=== PATIENT | male | born 1945 | race Caucasian/White ===

== ENCOUNTER 2021-03-30 11:00 | Outpatient (RCR) | payer MEDICARE, OTHER, SELFPAY ==
[2021-03-30] VITALS (7 sets, daily range): BP systolic 125–136; BP diastolic 43–67; PULSE 72–79; RESP 16–18; TEMP 36.5–36.6; O2SAT 97–100
[2021-03-30 11:50] LABS: Hematocrit 20.3 % (42.0-52.0)
[2021-03-30] MEDS: SODIUM CHLORIDE 0.9% IV 250 ML 30 ML IV CONT (15:00)
--- NOTE | 2021-03-30 21:58 | PC.NURSE ---
2150 pt discharged home via own vehicle, driven himself. pt vital signs stable, on room air, no cp, sob. pt given discharge instructions.
== END 2021-06-28 23:59 | disposition home or self-care (01) ==
LOC: ANHCPCTRAN 11:00
PROVIDERS: PCP Family Medicine Adolescent Medicine; Visit Provider Physician Assistant
DX: D64.9 Anemia, unspecified (principal)
CPT/HCPCS: 36415; 36430; 85014; 85018; 86850; 86900; 86901; 86920; J7050; P9016

== ENCOUNTER → 2021-04-20 15:10 | Outpatient (CLI) | payer MEDICARE, OTHER, SELFPAY ==
--- NOTE | ~2021-04-20 | US_ITS ---
EXAMINATION: US renal BI DATE: 04/20/2021 15:25 INDICATION: Chronic kidney disease stage IV. TECHNIQUE: Multiple ultrasound grayscale images of the kidneys were obtained. COMPARISON: None. FINDINGS: The right kidney measures 9.0 x 5.1 x 5.3 cm. The left kidney measures 9.8 x 5.2 x 4.5 cm. The kidney s demonstrate normal parenchymal echogenicity. There is no hydronephrosis. The bladder is normal. IMPRESSION: 1. Normal kidneys. No hydronephrosis. Reviewed, dictated and finalized at location A.
== END ==
PROVIDERS: Visit Provider Internal Medicine Nephrology
DX: N18.4 Chronic kidney disease, stage 4 (severe) (principal)
CPT/HCPCS: 76775

== ENCOUNTER 2021-06-13 00:23 | Day surgery (SDC) | payer MEDICARE, OTHER, SELFPAY ==
[2021-06-06 11:58] VITALS: BMI 24.9
--- NOTE | 2021-06-13 08:03 | WPDANESEPPF ---
Anes - Initial Pre Proc Eval Procedure: Operation Date: 06/13/21 09:45 Proposed Procedures p Esophagogastroduodenoscopy & Colonoscopy - Robert Cyr MD Date/Time: 06/13/21 08:03 Surgeon: Robert Cyr MD Pre Op Diagnosis: gi blood loss, anemia Patient Data Age: 76 Gender: M Height: 1.8 m Weight: 81 kg Allergies Allergy/AdvReac Type Severity Reaction Status Date / Time No Known Allergies Allergy Verified 06/13/21 08:23 Home Medications Medication Instructions Recorded Confirmed Type aspirin 81 mg tablet,delayed 81 mg PO DAILY 05/10/21 06/13/21 History release clopidogrel 75 mg tablet 75 mg PO DAILY 05/10/21 06/13/21 History fenofibrate 160 mg tablet 160 mg PO DAILY 05/10/21 06/13/21 History losartan 100 mg tablet 100 mg PO DAILY 05/10/21 06/13/21 History omega 2-woi-cme-fish oil 1,200 mg 1 cap PO DAILY 05/10/21 06/13/21 History (144 mg-216 mg) capsule Patient hx anesthesia problems: none Family hx anesthesia problems: none Results Review: All pre-operative results and documents have been reviewed as part of the pre-operative evaluation. [facility] Past Medical History Medical History (Updated 06/13/21 @ 08:56 by Robert Cyr MD) Arthritis Hyperlipidemia Hypertension PVD (peripheral vascular disease) Stroke TIA (transient ischemic attack) Surgical History Surgical History (Updated 06/13/21 @ 08:04 by Weston Rodírguez DO) History of carotid endarterectomy Social History Social History (Updated 05/10/21 @ 08:24 by Suzanna Vivas CMA) Smoking packs per day: 3 Smoking cigarettes per day: 60.0 Years smoked: 25 Smoking pack-years: 75.00 Smoking status: Current every day smoker Tobacco type: cigarettes Alcohol intake: former Substance use: never Substance use type: does not use Living arrangements: with family Spiritual care concerns: No Anes - Eval Final PreProcedure Day of Procedure 06/13/21 08:03 Patient weight: normal Heart: regular rate and rhythm Lungs: clear to auscultation and normal air movement Airway: Mallampati scale class II Neurological: alert and oriented Last oral intake: >/= 8 hours ASA classification: III Emergent: no Anesthetic plan: proceed Anesthesia type and monitoring: general GIVS and standard monitoring Results Review: All pre-operative results and documents have been reviewed as part of the pre-operative evaluation. Informed Consent: The patient's anesthetic plan and its attendant risks and benefits were discussed with the patient/family/POA. Questions were solicited and answers provided to the satisfaction of the patient/family/POA.
[2021-06-13 08:24] VITALS: BP 132/96; PULSE 87; RESP 18; TEMP 36.3; O2SAT 96; BMI 23.2
[2021-06-13] MEDS: LACTATED RINGERS 1,000 ML 150 ML IV CONT (08:38)
--- NOTE | 2021-06-13 08:55 | WPDGICN ---
Assessment and Plan Assessment and plan (1) Anemia: Code(s): D64.9 - Anemia, unspecified Status: Acute Assessment and Plan: Patient with profound anemia. Appears to have been a precipitous drop. No indication for active bleeding. Plan is for GI endoscopy to search for possible GI etiology to anemia. Further recommendations will be given after endoscopy. If endoscopy negative consider Hematology evaluation. (2) History of colon polyps: Code(s): Z86.010 - Personal history of colonic polyps Status: Acute Assessment and Plan: patient has a history of adenomatous colon polyp removed from the colon 2015. Plan is for surveillance colonoscopy at this time. Particularly given his recent anemia. GI Consult Note Consult date/time: 06/13/21 08:55 HPI: Natalio Franco is a 76 year old male Presents for GI endoscopy. Patient recently found to have profound normochromic normocytic anemia. Stools were Hemoccult negative. Patient denies any obvious signs of GI bleeding. He has never been anemic previously. He presents today for GI endoscopy over concerns he may have had bleeding causing the precipitous drop in hemoglobin. Patient denies any abdominal pain. He does have a prior history of colon polyps most recently 2015. Currently with no abdominal pain. His bowel habits have remained normal. No indication of blood in his stools. Review of Systems Review of Systems: All systems reviewed & are unremarkable except as noted in HPI and below PMFSH Past Medical History Medical History (Updated 06/13/21 @ 08:56 by Robert Cyr MD) Arthritis Hyperlipidemia Hypertension PVD (peripheral vascular disease) Stroke TIA (transient ischemic attack) Surgical History Surgical History (Updated 06/13/21 @ 08:04 by Weston Rodríguez DO) History of carotid endarterectomy Social History Social History (Updated 05/10/21 @ 08:24 by Suzanna Vivas CMA) Smoking packs per day: 3 Smoking cigarettes per day: 60.0 Years smoked: 25 Smoking pack-years: 75.00 Smoking status: Current every day smoker Tobacco type: cigarettes Alcohol intake: former Substance use: never Substance use type: does not use Living arrangements: with family Spiritual care concerns: No Meds Home Medications and Allergies Home Medications Medication Instructions Recorded Confirmed Type aspirin 81 mg tablet,delayed 81 mg PO DAILY 05/10/21 06/13/21 History release clopidogrel 75 mg tablet 75 mg PO DAILY 05/10/21 06/13/21 History fenofibrate 160 mg tablet 160 mg PO DAILY 05/10/21 06/13/21 History losartan 100 mg tablet 100 mg PO DAILY 05/10/21 06/13/21 History omega 2-zec-ngt-fish oil 1,200 mg 1 cap PO DAILY 05/10/21 06/13/21 History (144 mg-216 mg) capsule Allergies Allergy/AdvReac Type Severity Reaction Status Date / Time No Known Allergies Allergy Verified 06/13/21 08:23 Vital Signs Vital Signs - 24 hr 06/13/21 08:24 Temperature 97.4 F L Pulse Rate 87 Respiratory Rate 18 Blood Pressure 132/96 H Pulse Oximetry 96 Exam Narrative: Physical exam reveals patient be alert. Vital signs stable. HEENT exam is unremarkable. Patient is anicteric. Lungs are clear to auscultation and percussion. Heart is without murmur or extra sounds. Abdominal exam bowel sounds are present soft nontender with no organomegaly. Digital external rectal exam is normal.
--- NOTE | 2021-06-13 09:41 | SUR.OPER ---
EGD END AT 0937. COLONOSCOPY START AT 0942.
[2021-06-13 10:05] VITALS: BP 95/51; PULSE 76; RESP 15; O2SAT 100
[2021-06-13 10:15] VITALS: BP 98/51; PULSE 75; RESP 17; O2SAT 100
[2021-06-13 10:25] VITALS: BP 100/52; PULSE 70; RESP 17; O2SAT 100
[2021-06-13 10:58] LABS: Basophils Percent Auto 1.2 % (0.2-1.2); Eosinophils Absolute Auto 0.1 K/mm3 (0-0.3); Eosinophils Percent Auto 1.8 % (0-4.4); Immature Granulocyte Absolute 0.02 K/mm3 (0.00-0.031); Immature Granulocyte Percent A 0.6 % (0-0.5); Lymphocytes Absolute Auto 0.63 K/mm3 (0.9-3.2); Mean Corpuscular HGB Conc 29.5 g/dl (32-36); Mean Corpuscular Hemoglobin 32.1 pg (26-34); Mean Corpuscular Volume 108.9 fl (80-100); Mean Platelet Volume 11.6 fl (7.4-10.4); Monocytes Absolute Auto 0.4 K/mm3 (0.1-0.6); Monocytes Percent Auto 13.3 % (2.6-8.5); Neutrophils Absolute Auto 2.1 K/mm3 (1.3-6.7); Neutrophils Percent Auto 64.1 % (45.5-73.1); Platelet Count Result 204 k/mm3 (150-375); Red Cell Distribution Width 17.4 % (11.5-14.5); White Blood Count 3.3 K/mm3 (4.5-10.0)
--- NOTE | 2021-06-13 11:16 | SUR.PHASEII ---
Patient given appointment with Dr Hayes for next Saturday at 10 am.
[2021-06-13 11:26] LABS: Alanine Aminotransferase 14 U/L (4-50); Albumin Level 4.2 g/dL (3.5-5.1); Alkaline Phosphatase 40 U/L (38-126); Aspartate Amino Transferase 52 U/L (17-59); Bilirubin,Total 0.8 mg/dL (0.2-1.3)
[2021-06-13 11:41] LABS: Hemoglobin 6.1 g/dL (14.0-18.0)
[2021-06-13 11:42] LABS: Hematocrit 20.7 % (42.0-52.0)
[2021-06-13 11:48] LABS: Carcinoembryonic Antigen 2.6 ng/mL (0.0-3.0)
== END 2021-06-13 11:05 | disposition home or self-care (01) ==
PROVIDERS: PCP Family Medicine Adolescent Medicine; Visit Provider Internal Medicine Gastroenterology
PROC: 0DJ08ZZ Inspection of Upper Intestinal Tract, Via Natural or Artificial Opening Endoscopic (ICD-10-PCS; CPT 43235; principal; 2021-06-13 09:45)
DX: C18.0 Malignant neoplasm of cecum (principal); D64.9 Anemia, unspecified; D12.2 Benign neoplasm of ascending colon; K57.30 Diverticulosis of large intestine without perforation or abscess without bleeding; K64.8 Other hemorrhoids; I10 Essential (primary) hypertension; E78.5 Hyperlipidemia, unspecified; I73.9 Peripheral vascular disease, unspecified; Z86.73 Personal history of transient ischemic attack (TIA), and cerebral infarction without residual deficits; Z79.02 Long term (current) use of antithrombotics/antiplatelets; Z79.82 Long term (current) use of aspirin; F17.210 Nicotine dependence, cigarettes, uncomplicated
CPT/HCPCS: 45380; 45381; 45385; 43235; 36415; 80076; 82378; 85025; 88305; J2704; J7120

== ENCOUNTER 2021-06-22 09:52 | Outpatient (CLI) | payer MEDICARE, OTHER, SELFPAY ==
--- NOTE | ~2021-06-22 | XR_ITS ---
EXAMINATION: XR chest 2V DATE: 06/22/2021 10:50 INDICATION: Malignant neoplasm of cecum. TECHNIQUE: Frontal and lateral views of the chest were obtained. COMPARISON: None. FINDINGS: There is mild scarring at the lung apices. No pleural effusion or pneumothorax. The heart s ize is normal. IMPRESSION: 1. Mild scarring at the lung apices. Reviewed, dictated and finalized at location A. ERCIAL LOAN REVIEWER
--- NOTE | 2021-06-22 10:30 | ECG_ITS ---
Measurements Intervals [place] Rate: 70 P: 49 NE: 151 QRS: -26 QRSD: 100 T: 36 QT: 368 QTc: 399 Interpretive Statements SINUS RHYTHM FREQUENT ATRIAL PREMATURE COMPLEXES BASELINE ARTIFACT- I, II, III, AVR, AVL, V2 ABNORMAL ECG Electronically Signed On 06-22-2021 10:58:59 [employer] HANDSTITCHING MACHINE by Sonny Rothman D.O.
[2021-06-22 11:03] LABS: Basophils Absolute Auto 0.1 K/mm3 (0.0-0.1); Eosinophils Absolute Auto 0.2 K/mm3 (0-0.3); Hematocrit 23.3 % (42.0-52.0); Immature Granulocyte Absolute 0.03 K/mm3 (0.00-0.031); Immature Granulocyte Percent A 0.6 % (0-0.5); Lymphocytes Absolute Auto 1.06 K/mm3 (0.9-3.2); Lymphocytes Percent Auto 21.4 % (18.3-44.2); Mean Corpuscular HGB Conc 29.2 g/dl (32-36); Mean Corpuscular Volume 113.1 fl (80-100); Mean Platelet Volume 10.8 fl (7.4-10.4); Monocytes Absolute Auto 0.8 K/mm3 (0.1-0.6); Monocytes Percent Auto 16.7 % (2.6-8.5); Neutrophils Absolute Auto 2.8 K/mm3 (1.3-6.7); Neutrophils Percent Auto 57.3 % (45.5-73.1); Platelet Count Result 199 k/mm3 (150-375); Red Blood Count 2.06 M/mm3 (4.6-6.20); Red Cell Distribution Width 20.1 % (11.5-14.5)
[2021-06-22 11:09] LABS: Anion Gap 6 mmol/L (8-16); Blood Urea Nitrogen 27 mg/dL (9-20); Calcium 9.2 mg/dL (8.4-10.2); Carbon Dioxide 25 mmol/L (22-30); Chloride 107 mmol/L (98-107); Estimated Glomerular Filt Rate 33; Glucose 89 mg/dL (65-110); Potassium 5.1 mmol/L (3.4-5.0); Sodium 138 mmol/L (137-145)
[2021-06-22 12:18] LABS: Macrocytosis 1+ (NORMAL); Platelet Estimate Adequate (Adequate)
[2021-06-22 12:27] LABS: Hemoglobin 6.8 g/dL (14.0-18.0)
== END 2021-06-22 09:53 | disposition home or self-care (01) ==
LOC: ANHSURGERY 09:55
PROVIDERS: PCP Family Medicine Adolescent Medicine; Visit Provider Surgery
DX: C18.0 Malignant neoplasm of cecum (principal); R91.8 Other nonspecific abnormal finding of lung field; R94.31 Abnormal electrocardiogram [ECG] [EKG]
CPT/HCPCS: 36415; 36430; 71046; 80048; 85025; 86850; 86900; 86901; 86920; 93005; P9016

== ENCOUNTER 2021-06-23 07:30 | Outpatient (RCR) | payer MEDICARE, OTHER, SELFPAY ==
[2021-06-23] VITALS (10 sets, daily range): BP systolic 116–154; BP diastolic 51–92; PULSE 61–86; RESP 13–18; TEMP 36.7–37.1; O2SAT 95–100
== END 2021-09-20 23:59 | disposition home or self-care (01) ==
LOC: ANHCPCTRAN 07:30
PROVIDERS: PCP Family Medicine Adolescent Medicine; Visit Provider Surgery
DX: C18.0 Malignant neoplasm of cecum (principal); D64.9 Anemia, unspecified
CPT/HCPCS: 99199; 36415; 36430; 86850; 86900; 86901; 86920; P9016

== ENCOUNTER 2021-06-26 12:36 | Outpatient (CLI) | payer MEDICARE, OTHER, SELFPAY ==
[2021-06-26 13:00] LABS: Basophils Absolute Auto 0.1 K/mm3 (0.0-0.1); Basophils Percent Auto 1.1 % (0.2-1.2); Eosinophils Absolute Auto 0.1 K/mm3 (0-0.3); Eosinophils Percent Auto 2.7 % (0-4.4); Hematocrit 30.5 % (42.0-52.0); Hemoglobin 9.6 g/dL (14.0-18.0); Immature Granulocyte Absolute 0.02 K/mm3 (0.00-0.031); Immature Granulocyte Percent A 0.4 % (0-0.5); Lymphocytes Absolute Auto 0.96 K/mm3 (0.9-3.2); Lymphocytes Percent Auto 18.3 % (18.3-44.2); Mean Corpuscular HGB Conc 31.5 g/dl (32-36); Mean Corpuscular Hemoglobin 33.2 pg (26-34); Mean Corpuscular Volume 105.5 fl (80-100); Mean Platelet Volume 11.5 fl (7.4-10.4); Monocytes Absolute Auto 0.8 K/mm3 (0.1-0.6); Monocytes Percent Auto 15.6 % (2.6-8.5); Neutrophils Absolute Auto 3.3 K/mm3 (1.3-6.7); Neutrophils Percent Auto 61.9 % (45.5-73.1); Platelet Count Result 175 k/mm3 (150-375); Red Blood Count 2.89 M/mm3 (4.6-6.20); White Blood Count 5.3 K/mm3 (4.5-10.0)
== END 2021-06-26 12:37 | disposition home or self-care (01) ==
PROVIDERS: PCP Family Medicine Adolescent Medicine; Visit Provider Surgery
DX: C18.0 Malignant neoplasm of cecum (principal); D50.0 Iron deficiency anemia secondary to blood loss (chronic)
CPT/HCPCS: 36415; 85025

== ENCOUNTER → 2021-06-26 13:30 | Outpatient (CLI) | payer MEDICARE, OTHER, SELFPAY ==
--- NOTE | ~2021-06-26 | CT_ITS ---
EXAMINATION: CT abdomen pelvis w con DATE: 06/26/2021 14:06 INDICATION: Malignant cecal neoplasm TECHNIQUE: Computed tomography (CT) of the abdomen and pelvis was performed with 100 cc Omnipaque 350 intravenous contrast. Automated exposure control and iterative reconstruction technique were employe d. Exam dose: 610.31 mGy-cm total exam DLP. COMPARISON: 04/20/2021 bilateral renal ultrasound examination FINDINGS: Normal heart size. No pericardial or pleural effusion. The lung bases are clear of infiltra te or consolidation. There is a 1.6 cm stone in the dependent aspect of the gallbladder. No gallbladder wall thickening or pericholecystic fluid or fat stranding or bile duct dilatation. No hepatic, splenic, pancreatic, adrenal or suspicious renal space occupying mass lesion is evident. A few small right renal cysts are noted, the largest approximately 7 mm. No urinary tract calculus or hydroureteronephrosis. There is moderate diffuse thickening of the urinary bladder wall.. Moderate p rostate enlargement. There is atherosclerotic calcification but no aneurysm of the abdominal aorta. There are numerous diverticula throughout the colon. There is irregular soft tissue thickening of the cecum with pericecal fat stranding, consistent with clinical diagnosis of cecal carcinoma. There are multiple adjacent shotty small nonenlarged right low er quadrant mesenteric lymph nodes. No suspicious osteolytic or osteoblastic lesions are noted. IMPRESSION: Irregular soft tissue thickening of the cecum, mild pericecal fat stranding and adjacent small shotty nonenlarged lymph nodes, consistent with clinical diagnosis of cecal carcinoma Diverticulosis of left and right colon Cholelithiasis Small right renal cysts Prostate enlargement, likely accounting for moderate diffuse thickening of the urinary bladder wall Reviewed, dictated and finalized at Location A. Reviewed, dictated and finalized at location B. HABILITATION SUPERVISOR IMPRESSION: Irregular soft tissue thickening of the cecum, mild pericecal fat stranding and adjacent small shotty nonenlarged lymph nodes, consistent with cl inical diagnosis of cecal carcinoma Diverticulosis of left and right colon Cholelithiasis Small right renal cysts Prostate enlargement, likely accounting for moderate diffuse thickening of the urinary bladder wall
[2021-06-26 13:54] LABS: Estimated Glomerular Filt Rate 37
== END ==
PROVIDERS: PCP Family Medicine Adolescent Medicine; Visit Provider Surgery
DX: C18.0 Malignant neoplasm of cecum (principal); K80.20 Calculus of gallbladder without cholecystitis without obstruction; N28.1 Cyst of kidney, acquired; K57.30 Diverticulosis of large intestine without perforation or abscess without bleeding; I25.10 Atherosclerotic heart disease of native coronary artery without angina pectoris; N40.0 Benign prostatic hyperplasia without lower urinary tract symptoms
CPT/HCPCS: 74177; Q9967

== ENCOUNTER 2021-06-28 13:18 | Inpatient (IN) | payer MEDICARE, OTHER, SELFPAY ==
[2021-06-22 09:42] VITALS: BP 132/66; PULSE 74; RESP 20; TEMP 37.1; O2SAT 100; BMI 23.9
--- NOTE | 2021-06-22 09:43 | PC.NURSE ---
Report to the Outpatient Waiting Room, entrance under the green pavilion located off [facility], at time _0700__ on date _06/28/21__. OR Time: __0900 AM__. - You and your visitor will be asked a series of questions to screen for COVID 19 for your protection. - A mask is required within the hospital. - Only one visitor is allowed at this time. Patient visitors will be guided where to wait when not with patient. Preoperative COVID Testing Requirements: No COVID Test needed if: (proof is required; if not received patient will have Rapid Test prior to entry) - Patient has received COVID Vaccine at least 14 days prior to procedure date or - Patient has positive COVID test result within last 90 days of surgery date. COVID Test needed if above criteria is not met If not COVID vaccinated a COVID test must be conducted within 72 hours of surgery and patient is asked to isolate self from time of testing until procedure. You will go to the [employer] [facility] Site for your COVID testing. The [employer] [facility] Testing site is located at the corner of [address] [facility]. You will only be called if COVID results are positive and your surgeon may reschedule your elective surgery date. Patients may have clear liquids (water, carbonated beverages, clear teas, apple juice) until 3 hours prior to surgery (0600 AM) with a maximum of 20 ounces. - No food from midnight until time of surgery - Infants may have breast milk until 4 hours before surgery, formula 6 hours prior to surgery. - Children will be allowed to drink immediately following surgery. If applicable, please bring a bottle or sippy cup to assist with drinking. Juice, water, soda, and popsicles are readily available. For infants on formula, please bring formula the day of surgery. Pacifiers are allowed. Take the following medications with a SIP of water the morning of surgery: NONE Medications to discontinue per physician __OMEGA 3 Date to take last dose___06/24/21 Please no make-up, nail british, hairspray, perfume, deodorant, or body powder the day of surgery. No jewelry (including any body piercings) or valuables the day of surgery, leave them at home. Please take a shower or bath the night before, or the morning of, surgery with an antibacterial soap. Wear comfortable, loose fitting clothing. Children are encouraged to wear pajamas. - Jewelry must be removed prior to entering the operating room. Rings and piercings that are not removed may be cut off. - The hospital will not accept responsibility for valuables. - Please leave all valuables, including medications, at home the day of surgery. If you are going home after surgery, a licensed driver license technician must drive you home. - NO public transportation without another adult. - We recommend that an adult stay with you for 24 hours following discharge. - We also recommend that you do not drive, make important decision, drink alcoholic beverages, or take any drugs that were not prescribed by your health care provider for at least 24 hours after your discharge time. For Pediatric surgeries, we recommend two adults accompany the child home (only one inside the building at this time). Follow any additional instructions given to you from your surgeon. DIET (ENSURE BUNDLE), PRE-OP ANTIBIOTICS, BOWEL PREP, HIBICLENS SHOWER NIGHT BEFORE AND THE MORNING OF SURGERY Telephone instructions given to PT and asked if any additional questions and then verbalized understanding. Patient advised to call surgeon office or pre surgery nurse liaison [phone] if any additional questions.
[2021-06-28] VITALS (10 sets, daily range): BP systolic 95–119; BP diastolic 37–66; PULSE 45–75; RESP 11–16; TEMP 35.5–36.9; O2SAT 94–100
[2021-06-28] MEDS: ACETAMINOPHEN 500 MG TABLET 1000 MG PO (08:50)
[2021-06-28] MEDS: LACTATED RINGERS 1,000 ML 30 ML IV CONT ×2 (08:51→12:21)
[2021-06-28] MEDS: KETOROLAC 15 MG/ML VIAL (*BKC) IV PUSH (08:53)
[2021-06-28 08:59] LABS: Hematocrit 29.4 % (42.0-52.0); Hemoglobin 9.4 g/dL (14.0-18.0)
--- NOTE | 2021-06-28 09:07 | WPDANESEPPF ---
Anes - Initial Pre Proc Eval Procedure: Operation Date: 06/28/21 10:00 Proposed Procedures p Hand Assisted Laparoscopic Right Colectomy - Omer Hayes MD Date/Time: 06/28/21 09:07 Surgeon: Omer Hayes MD Pre Op Diagnosis: cecal cancer Patient Data Age: 76 Gender: M Height: 1.8 m Weight: 76.3 kg Last Vital Signs Temp 36.5 C 06/28/21 08:17 Pulse 45 L 06/28/21 08:17 Resp 16 06/28/21 08:17 BP 112/37 L 06/28/21 08:17 Pulse Ox 99 06/28/21 08:17 Allergies Allergy/AdvReac Type Severity Reaction Status Date / Time No Known Allergies Allergy Verified 06/28/21 08:27 Home Medications Medication Instructions Recorded Confirmed Type aspirin 81 mg tablet,delayed 81 mg PO HS 05/10/21 06/28/21 History release fenofibrate 160 mg tablet 160 mg PO HS 05/10/21 06/28/21 History losartan 100 mg tablet 100 mg PO HS 05/10/21 06/28/21 History omega 7-ckr-lbd-fish oil 1,200 mg 2 cap PO BID 05/10/21 06/28/21 History (144 mg-216 mg) capsule cyanocobalamin (vitamin B-12) 1,000 mcg PO HS 06/22/21 06/28/21 History ferrous sulfate [Iron (ferrous 325 mg PO BID 06/22/21 06/28/21 History sulfate)] Laboratory Tests 06/28/21 08:11 Hgb Pending Hct Pending Patient hx anesthesia problems: none Family hx anesthesia problems: none Results Review: All pre-operative results and documents have been reviewed as part of the pre-operative evaluation. [facility], [facility] Past Medical History Medical History (Updated 06/28/21 @ 09:07 by Harjinder Gaines MD) Arthritis CKD (chronic kidney disease) Hyperlipidemia Hypertension PVD (peripheral vascular disease) Stroke TIA (transient ischemic attack) Surgical History Surgical History History of carotid endarterectomy Family History Family History Other Cancer Diabetes mellitus Hypertension Social History Social History Smoking packs per day: 3 Smoking cigarettes per day: 60.0 Years smoked: 25 Smoking pack-years: 75.00 Smoking status: Former smoker Tobacco type: cigarettes Second hand tobacco smoke exposure: No Smoking end date: 07/08/04 Additional smoking assessment comments: STATES QUITTING AROUND 2002 Alcohol intake: former Alcohol use details: STATES QUITTING AROUND 2009 Substance use: never Substance use type: does not use Living arrangements: with family Additional living arrangements comments: PT LIVES WITH SISTERS X2 Spiritual care concerns: No Anes - Eval Final PreProcedure Day of Procedure 06/28/21 09:07 Patient weight: normal Heart: regular rate and rhythm Lungs: clear to auscultation Airway: Mallampati scale class II Neurological: alert and oriented Last oral intake: >/= 8 hours ASA classification: III Emergent: no Anesthetic plan: proceed Anesthesia type and monitoring: general ETT and standard monitoring Results Review: All pre-operative results and documents have been reviewed as part of the pre-operative evaluation. Informed Consent: The patient's anesthetic plan and its attendant risks and benefits were discussed with the patient/family/POA. Questions were solicited and answers provided to the satisfaction of the patient/family/POA.
--- NOTE | 2021-06-28 09:09 | WPDHPUPDATE1 ---
History and Physical Update Update Date/Time: 06/28/21 09:09 History and Physical has been reviewed, including an updated exam of the patient. There are NO changes in the patient's condition. Risks, benefits, and alternatives have been discussed and questions answered. Patient agrees to proceed with procedure.
[2021-06-28] MEDS: ALVIMOPAN 12 MG CAPSULE PO (09:15)
[2021-06-28] MEDS: ceFAZolin 2 GM/D5W 50 ML 2 GM/50 ML BAG IVPB (09:36)
[2021-06-28] MEDS: metroNIDAZOLE 500 MG/ISO 100ML 500 MG/100 ML BAG 100 MG IVPB (09:50)
[2021-06-28] MEDS: LIDO 1%/EPINEPHRINE/PF 1:200,000 30 ML VIAL XX (10:25)
--- NOTE | 2021-06-28 12:36 | W.PM.PROC2 ---
Procedure Note - Detailed Date of Procedure 06/28/21 Pre-op Diagnosis cecal cancer Post-op Diagnosis same Procedure Performed Hand access laparoscopic right colectomy with hand-sewn ileotransverse anastomosis Surgeon Omer Hayes MD Adult Psychiatrist Nidia Anesthesia general and local (0.5% Marcaine) Indications Patient was noted to have iron deficiency anemia. He underwent an EGD and colonoscopy. Source of his bleeding was found to be a cecal cancer. Biopsies were positive for adenocarcinoma. His preoperative CT scan was negative for distant metastasis. His CEA level was normal. He is taken to surgery now for hand access laparoscopic right colectomy. Findings Tumor noted in the cecum. No evidence of metastatic disease. Description of Procedure The patient was taken to surgery and induced into general anesthesia. The abdomen was prepped and draped. The hand access port was marked in the midline above the umbilicus. Local anesthetic was infiltrated in the area of the anticipated incision and in the subcutaneous tissues. Incision was made dissection was carried down through the subcutaneous. The fascia was opened in the midline and the peritoneal cavity was entered. The peritoneal opening was extended the length of the incision. We then placed the Ryland wound guard. The GelPort was placed. With the hand in the abdomen, I infiltrated local and placed a 5 mm right lower quadrant trocar. We insufflated through this. Under direct visualization a left mid abdominal 5 mm port was placed as well. We then placed the patient in Trendelenburg with the right-side elevated. I elevated the distal ileum and cecum exposing the base of the mesentery. The LigaSure was used for virtually all the dissection. I opened the base of the mesentery using the LigaSure and extended this opening the length of the distal ileum to be resected. I then gently dissected into the retroperitoneum. Once this plane was started, I dissected bluntly up to the transverse colon mesentery. This dissection went over the duodenum and the right kidney. A medial the lateral dissection was performed. From there, I divided the mesentery associated with the proximal line of resection in the distal ileum. This was done with the LigaSure. This mesentery was divided up to the distal ileum. About 1 ft of distal ileum was taken with the cecal cancer. I then dissected in the mesentery over to the ileocolic artery. I dissected around the origin of the ileocolic artery. I used the LigaSure then to divide the ileocolic artery near its origin. There was no bleeding. I continued the dissection of the ascending colon mesentery using LigaSure up to the hepatic flexure. I then divided the lateral peritoneal attachments of the ascending colon including the area of the tumor. Once we reached the hepatic flexure, the hepatic colic ligaments were divided with the LigaSure. I exposed the transverse colon mesentery and divided this with the LigaSure as well. We dissected into the transverse colon mesentery and divided the right branch of the middle colic artery. We then stopped insufflation. I removed the GelPort. I eviscerated the right colon including the distal ileum and at least half of the transverse colon. The LigaSure was used to divide a little more of the transverse colon mesentery up to the point of distal transection. I also used the LigaSure to divide the associated omentum with the proximal transverse colon so that it would be removed with the specimen. The proximal transverse colon was then divided using a TLC 75 stapler. We re-loaded the stapler and used it to divide the distal ileum as well. The ascending colon specimen was then passed off to pathology in formalin labeled right colectomy specimen. I checked the mesenteric orientation of the distal ileum. I then placed the distal ileum and proximal transverse colon ends [id number]. A [id number] but functional end-to-end hand-sewn
--- NOTE | 2021-06-28 13:30 | ADMGEN ---
This patient, Natalio Franco, was admitted to [facility]2 (16). Patient/family oriented to hospital policies and general routines including ID bracelet, bed and alarms, visiting hours, pain management, procedures, bathroom and other care routines, personal items, smoking policy, room service/diet, and visiting hours. Information on how to activate the Rapid Response Team has been discussed. Patient/Family are encouraged to report perceived risks to care and to ask questions if they do not understand what they are told or what they should do.
[2021-06-28] MEDS: LACTATED RINGERS 1,000 ML 80 ML IV CONT (13:53)
[2021-06-28] MEDS: ACETAMINOPHEN 500 MG TABLET PO (16:17)
[2021-06-28] MEDS: ASPIRIN 81 MG ENTERIC TABLET PO (20:51)
[2021-06-28] MEDS: FENOFIBRATE 160 MG TABLET PO (20:54)
[2021-06-28] MEDS: CYANOCOBALAMIN 1,000 MCG TABLET 1000 MCG PO (20:54)
[2021-06-28] MEDS: FAMOTIDINE 20 MG TABLET PO (20:54)
[2021-06-28] MEDS: LOSARTAN POTASSIUM 100 MG TABLET PO (20:54)
[2021-06-29] MEDS: ACETAMINOPHEN 500 MG TABLET PO ×2 (00:02→07:20)
[2021-06-29] MEDS: MORPHINE SULFATE (*CRX) 2 MG/ML INJ IV PUSH (01:39)
[2021-06-29] MEDS: LACTATED RINGERS 1,000 ML 80 ML IV CONT (01:48)
[2021-06-29 05:53] VITALS: BP 129/41; PULSE 64; RESP 16; O2SAT 96
[2021-06-29 05:58] LABS: Hematocrit 26.1 % (42.0-52.0); Hemoglobin 8.3 g/dL (14.0-18.0); Immature Platelet Fraction Pct 8.5 % (0.9-11.2); Mean Corpuscular HGB Conc 31.8 g/dl (32-36); Mean Corpuscular Hemoglobin 33.1 pg (26-34); Mean Platelet Volume 11.7 fl (7.4-10.4); Platelet Count Result 134 k/mm3 (150-375); Red Blood Count 2.51 M/mm3 (4.6-6.20); White Blood Count 8.8 K/mm3 (4.5-10.0)
[2021-06-29 06:06] LABS: Anion Gap 9 mmol/L (8-16); Blood Urea Nitrogen 22 mg/dL (9-20); Carbon Dioxide 22 mmol/L (22-30); Chloride 104 mmol/L (98-107); Estimated CRCL calculation 29 ml/min; Estimated Glomerular Filt Rate 31; Glucose 138 mg/dL (65-110); Sodium 135 mmol/L (137-145)
[2021-06-29] MEDS: FAMOTIDINE 20 MG TABLET PO (08:27)
[2021-06-29] MEDS: FERROUS SULFATE 324 MG TABLET PO (08:27)
[2021-06-29] MEDS: ENOXAPARIN 40 MG/0.4 ML SYRINGE SUB-Q (08:32)
[2021-06-29 09:00] VITALS: BP 142/47; PULSE 57; RESP 20; O2SAT 100
--- NOTE | 2021-06-29 12:08 | PM.DS ---
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 Patient received 2 units packed cells the week before surgery. He was still anemic prior to surgery. Postoperatively his H&H was a bit lower but he was tolerating it well. He will go home on iron. (3) intermission coordinator (current) use of antithrombotics/antiplatelets: Code(s): Z79.02 - intermission coordinator (current) use of antithrombotics/antiplatelets Status: Chronic Assessment and Plan: Plavix had been stopped due to lower GI bleeding. It can be restarted on Saturday07/01/2021. (4) History of CVA (cerebrovascular accident): Code(s): Z86.73 - Personal history of transient ischemic attack (TIA), and cerebral infarction without residual deficits Status: Chronic DS: Summary Hospital Course Hospital Course: Patient had home bowel preparation in then was taken to surgery on 06/28/2021. He underwent hand access laparoscopic right colectomy with hand-sewn 2 layer anastomosis. Postoperatively the patient did quite well. He was able to void and ambulate independently. Although he was a bit more anemic than he was prior to surgery, this was felt to mostly be due to dilutional effects as blood loss from surgery was minimal and there was no sign of postoperative bleeding. He is comfortable on oral analgesics and able to be discharged on 06/29/2021 in good condition. Status at Discharge Functional status at discharge: independent ambulation Overall status at discharge: patient is progressing back to baseline Time Spent with Patient Time attestation: Total time spent providing and/or coordinating discharge services: Exam Const: General: comfortable and no acute distress; No confusion Orientation/consciousness: patient oriented x3 and No confusion GI: Inspection: non-distended, incision (Incisions dry and healing well) and scaphoid GI Palp: Yes Soft to palpation, Yes Tenderness to palpation present (GI) (Minimal tenderness), No Guarding due to palpation present (GI) and No Rebound tenderness present Auscultation: normal bowel sounds Neuro: General: patient oriented x3, no focal motor deficits and No confusion Extrem: General: no calf tenderness and no edema Psych: Affect: normal affect Insight: Good insight present (Psych) Judgement: Good judgement present (Psych) DS: Data Data Completed and Pending Pending studies at discharge: Pending at discharge 06/28/21 10:48 Surgical [PTH] Routine Labs on day of discharge: Labs from last 24 hours 06/29/21 06/29/21 05:27 05:27 WBC 8.8 RBC 2.51 L Hgb 8.3 L Hct 26.1 L MCV 104.0 H MCH 33.1 MCHC 31.8 L RDW 21.0 H Plt Count 134 L MPV 11.7 H % Immature Plt Fraction 8.5 Sodium 135 L Potassium 4.0 Chloride 104 Carbon Dioxide 22 Anion Gap 9 BUN 22 H Creatinine 2.10 H Estim Creat Clear Calc 29 Estimated GFR 31 L Glucose 138 H Calcium 8.0 L Discharge Plan Discharge Attending physician on discharge: Omer Hayes Discharging Clinician: Omer Hayes Anticipated Discharge Date/Time: 06/29/21 12:14 Patient Disposition: Home, Self-Care Activity: may shower, no straining, as tolerated and other - see discharge instructions Diet: as tolerated and regular Wound Care Instructions: incision open to air Dis
== END 2021-06-29 13:20 | disposition home or self-care (01) | DRG 330 ==
LOC: ANHSUROVER 13:22
PROVIDERS: Anesthesiology; Admitting Provider Surgery; PCP Family Medicine Adolescent Medicine; Visit Provider Surgery
PROC: 0DTF4ZZ Resection of Right Large Intestine, Percutaneous Endoscopic Approach (ICD-10-PCS; CPT 44204; principal; 2021-06-28 10:00)
DX: C18.0 Malignant neoplasm of cecum (principal); K92.2 Gastrointestinal hemorrhage, unspecified; D50.0 Iron deficiency anemia secondary to blood loss (chronic); I12.9 Hypertensive chronic kidney disease with stage 1 through stage 4 chronic kidney disease, or unspecified chronic kidney disease; N18.9 Chronic kidney disease, unspecified; M19.90 Unspecified osteoarthritis, unspecified site; I73.9 Peripheral vascular disease, unspecified; E78.5 Hyperlipidemia, unspecified; Z79.02 Long term (current) use of antithrombotics/antiplatelets; Z86.73 Personal history of transient ischemic attack (TIA), and cerebral infarction without residual deficits; Z87.891 Personal history of nicotine dependence
CPT/HCPCS: 36415; 80048; 81210; 81275; 81301; 81311; 85014; 85018; 85025; 85027; 85055; 86850; 86900; 86901; 88309; 88381; A9270; J0690; J1100; J1170; J1650; J1885; J2250; J2270; J2370; J2405; J2704; J2710; J3010; J7120

== ENCOUNTER 2021-07-27 08:54 | Outpatient (CLI) | payer MEDICARE, OTHER, SELFPAY ==
[2021-07-27 09:13] LABS: Basophils Percent Auto 1.2 % (0.2-1.2); Eosinophils Absolute Auto 0.2 K/mm3 (0-0.3); Eosinophils Percent Auto 4.5 % (0-4.4); Hematocrit 31.1 % (42.0-52.0); Hemoglobin 9.7 g/dL (14.0-18.0); Immature Granulocyte Absolute 0.01 K/mm3 (0.00-0.031); Immature Granulocyte Percent A 0.3 % (0-0.5); Lymphocytes Absolute Auto 0.99 K/mm3 (0.9-3.2); Lymphocytes Percent Auto 29.9 % (18.3-44.2); Mean Corpuscular HGB Conc 31.2 g/dl (32-36); Mean Corpuscular Hemoglobin 35.3 pg (26-34); Mean Corpuscular Volume 113.1 fl (80-100); Monocytes Absolute Auto 0.6 K/mm3 (0.1-0.6); Monocytes Percent Auto 17.8 % (2.6-8.5); Neutrophils Absolute Auto 1.5 K/mm3 (1.3-6.7); Neutrophils Percent Auto 46.3 % (45.5-73.1); Platelet Count Result 161 k/mm3 (150-375); Red Blood Count 2.75 M/mm3 (4.6-6.20); Red Cell Distribution Width 20.9 % (11.5-14.5); White Blood Count 3.3 K/mm3 (4.5-10.0)
[2021-07-27 09:19] LABS: Blood Urea Nitrogen 26 mg/dL (8-26); Carbon Dioxide 25 mmol/L (22-30); Chloride 106 mmol/L (98-109); Estimated Glomerular Filt Rate 39; Glucose 117 mg/dL (70-105); Potassium 4.5 mmol/L (3.5-4.9); Sodium 140 mmol/L (138-146)
[2021-07-27 09:57] LABS: Alanine Aminotransferase 18 U/L (4-50); Albumin Level 4.5 g/dL (3.5-5.1); Alkaline Phosphatase 71 U/L (38-126); Anion Gap 8 mmol/L (8-16); Aspartate Amino Transferase 63 U/L (17-59); Bilirubin,Total 0.4 mg/dL (0.2-1.3); Blood Urea Nitrogen 26 mg/dL (9-20); Calcium 9.3 mg/dL (8.4-10.2); Carbon Dioxide 25 mmol/L (22-30); Chloride 106 mmol/L (98-107); Estimated Glomerular Filt Rate 39; Glucose 123 mg/dL (65-110); Potassium 4.5 mmol/L (3.4-5.0); Sodium 139 mmol/L (137-145)
[2021-07-27 10:38] LABS: Iron 212 ug/dL (49-181)
[2021-07-27 10:48] LABS: Percent Iron Saturation 59 % (20-50)
== END 2021-07-27 08:55 | disposition home or self-care (01) ==
LOC: ANHLAB 08:58
PROVIDERS: PCP Family Medicine Adolescent Medicine; Visit Provider Internal Medicine Hematology & Oncology
DX: D64.9 Anemia, unspecified (principal)
CPT/HCPCS: 36415; 80053; 82607; 82728; 83540; 83550; 85025

== ENCOUNTER 2021-10-20 08:17 | Outpatient (CLI) | payer MEDICARE, OTHER, SELFPAY ==
[2021-10-20 09:28] LABS: Basophils Absolute Auto 0.1 K/mm3 (0.0-0.1); Basophils Percent Auto 1.6 % (0.2-1.2); Eosinophils Absolute Auto 0.2 K/mm3 (0-0.3); Eosinophils Percent Auto 5.7 % (0-4.4); Hematocrit 30.8 % (42.0-52.0); Hemoglobin 10.1 g/dL (14.0-18.0); Immature Granulocyte Absolute 0.01 K/mm3 (0.00-0.031); Immature Granulocyte Percent A 0.3 % (0-0.5); Immature Platelet Fraction Pct 8.9 % (0.9-11.2); Lymphocytes Absolute Auto 0.87 K/mm3 (0.9-3.2); Lymphocytes Percent Auto 27.4 % (18.3-44.2); Mean Corpuscular HGB Conc 32.8 g/dl (32-36); Mean Corpuscular Hemoglobin 37.4 pg (26-34); Mean Corpuscular Volume 114.1 fl (80-100); Mean Platelet Volume 11.7 fl (7.4-10.4); Monocytes Absolute Auto 0.6 K/mm3 (0.1-0.6); Monocytes Percent Auto 18.9 % (2.6-8.5); Neutrophils Absolute Auto 1.5 K/mm3 (1.3-6.7); Neutrophils Percent Auto 46.1 % (45.5-73.1); Platelet Count Result 148 k/mm3 (150-375); Red Cell Distribution Width 16.1 % (11.5-14.5); White Blood Count 3.2 K/mm3 (4.5-10.0)
[2021-10-20 09:49] LABS: Anion Gap 9 mmol/L (8-16); Blood Urea Nitrogen 27 mg/dL (9-20); Calcium 8.5 mg/dL (8.4-10.2); Carbon Dioxide 22 mmol/L (22-30); Chloride 107 mmol/L (98-107); Estimated Glomerular Filt Rate 46; Glucose 96 mg/dL (65-110); Immunoglobulin A 55 mg/dL (70-400); Immunoglobulin G 1117 mg/dL (700-1600); Immunoglobulin M 35 mg/dL (40-230); Potassium 4.5 mmol/L (3.4-5.0); Sodium 138 mmol/L (137-145)
[2021-10-20 10:07] LABS: Carcinoembryonic Antigen 2.9 ng/mL (0.0-3.0)
[2021-10-20 10:12] LABS: Iron 173 ug/dL (49-181)
[2021-10-20 10:18] LABS: Percent Iron Saturation 50 % (20-50)
[2021-10-20 10:43] LABS: Folic Acid 11.4 ng/mL (2.76->20)
[2021-10-20 10:50] LABS: Platelet Estimate Adequate (Adequate); Tear Drop Cells 1+ (NORMAL)
[2021-10-23 15:34] LABS: Abnormal Protein Band 1 0.5 g/dL; Albumin 4.4 g/dL (3.8-4.8); Alpha 1 Globulin 0.3 g/dL (0.2-0.3); Alpha 2 Globulin 0.7 g/dL (0.5-0.9); Beta 1 Globulin 0.4 g/dL (0.4-0.6)
[2021-10-25 07:03] LABS: Kappa\\Lambda Light Chains 0.42 (0.26-1.65); Lambda Light Chain 58.8 mg/L (5.7-26.3)
== END 2021-10-20 08:18 | disposition home or self-care (01) ==
PROVIDERS: PCP Family Medicine Adolescent Medicine; Visit Provider Internal Medicine Hematology & Oncology
DX: D64.9 Anemia, unspecified (principal); C18.9 Malignant neoplasm of colon, unspecified; D72.9 Disorder of white blood cells, unspecified
CPT/HCPCS: 36415; 80048; 82378; 82607; 82728; 82746; 82784; 83540; 83550; 83883; 84155; 84165; 85025; 85055

== ENCOUNTER 2021-11-14 10:03 | Outpatient (CLI) | payer MEDICARE, OTHER, SELFPAY ==
[2021-11-14 10:33] LABS: Hematocrit 32.4 % (42.0-52.0); Hemoglobin 10.6 g/dL (14.0-18.0); Immature Platelet Fraction Pct 9.5 % (0.9-11.2); Mean Corpuscular HGB Conc 32.7 g/dl (32-36); Mean Corpuscular Hemoglobin 37.6 pg (26-34); Mean Corpuscular Volume 114.9 fl (80-100); Mean Platelet Volume 10.9 fl (7.4-10.4); Platelet Count Result 151 k/mm3 (150-375); Red Blood Count 2.82 M/mm3 (4.6-6.20); Red Cell Distribution Width 15.4 % (11.5-14.5); White Blood Count 4.2 K/mm3 (4.5-10.0)
[2021-11-14 10:45] LABS: Albumin Level 4.4 g/dL (3.5-5.1); Anion Gap 8 mmol/L (8-16); Blood Urea Nitrogen 28 mg/dL (9-20); Calcium 9.3 mg/dL (8.4-10.2); Carbon Dioxide 26 mmol/L (22-30); Chloride 104 mmol/L (98-107); Estimated Glomerular Filt Rate 39; Glucose 104 mg/dL (65-110); Phosphorus 3.2 mg/dL (2.5-4.5); Potassium 4.7 mmol/L (3.4-5.0); Sodium 138 mmol/L (137-145)
[2021-11-14 10:58] LABS: Parathyroid Intact 43.1 pg/mL (7.5-53.5)
[2021-11-14 11:06] LABS: Creatinine Urine 42.1 mg/dL; Total Protein Urine Random 8 mg/dL; Ur Ttl Prot Creatinine Ratio 0.19 mg/mg (0-0.20)
== END 2021-11-14 10:04 | disposition home or self-care (01) ==
LOC: ANHLAB 10:08
PROVIDERS: PCP Family Medicine Adolescent Medicine; Visit Provider Internal Medicine Nephrology
DX: N18.4 Chronic kidney disease, stage 4 (severe) (principal)
CPT/HCPCS: 36415; 80069; 82570; 83970; 84156; 85027; 85055

== ENCOUNTER 2022-01-24 08:42 | Outpatient (CLI) | payer MEDICARE, OTHER, SELFPAY ==
--- NOTE | ~2022-01-24 | CT_ITS ---
EXAMINATION: CT abdomen pelvis w con DATE: 01/24/2022 09:12 INDICATION: Restaging, malignant neoplasm cecum TECHNIQUE: Computed tomography (CT) of the abdomen and pelvis was performed with 100 CC Omnipaque 300 intravenous contrast. Automated exposure control and iterative reconstruction technique were employe d. Exam dose: 416.08 mGy-cm total exam DLP. COMPARISON: 06/26/2021 CT abdomen pelvis FINDINGS: Mild peripheral interstitial changes of the lungs. No consolidation at the lung bases. Norm al heart size. No pericardial or pleural effusion. Very small sliding hiatal hernia. Cholelithiasis. No gallbladder wall thickening or pericholecystic fluid or fat stranding. No hepatic space-occupying mass lesion. Splenic size is within normal range. No pancreatic mass lesion, calcific ation or ductal dilatation. No bile duct dilatation. Normal morphology of the adrenal glands. A couple of small right renal cysts are noted.. No urinary tract calculus or hydroureteronephrosis. T he urinary bladder is unremarkable. There is moderate prostate enlargement. There is atherosclerotic calcification but normal caliber of the abdominal aorta. No intraperitoneal or retroperitoneal or pelvic mass lesion or adenopathy or ascites. There are numerous diverticula throughout the remaining colon; no CT evidence of diverticulitis. Status post right colectomy for history of cecal neoplasm. No bowel obstruction is evident. No intrap eritoneal free air. No suspicious osteolytic or osteoblastic lesions are noted. Moderate degenerative change of the lumba r spine. IMPRESSION: Sepsis right colectomy for cecal neoplasm; no bowel obstruction or metastatic disease is detected Extensive colonic diverticulosis; no CT evidence of diverticulitis Very small sliding hiatal hernia Reviewed, dictated and finalized at [facility]. Reviewed, dictated and finalized at location [facility].
[2022-01-24 09:07] LABS: Estimated Glomerular Filt Rate 39
== END 2022-01-24 08:43 | disposition home or self-care (01) ==
PROVIDERS: PCP Family Medicine Adolescent Medicine; Visit Provider Internal Medicine Hematology & Oncology
DX: C18.9 Malignant neoplasm of colon, unspecified (principal); K44.9 Diaphragmatic hernia without obstruction or gangrene; K80.20 Calculus of gallbladder without cholecystitis without obstruction; K57.30 Diverticulosis of large intestine without perforation or abscess without bleeding; N28.1 Cyst of kidney, acquired; N40.0 Benign prostatic hyperplasia without lower urinary tract symptoms; I70.0 Atherosclerosis of aorta; A41.89 Other specified sepsis
CPT/HCPCS: 74177; Q9967

== ENCOUNTER 2022-02-07 09:49 | Outpatient (CLI) | payer MEDICARE, OTHER, SELFPAY ==
[2022-02-07 10:39] LABS: Basophils Absolute Auto 0.1 K/mm3 (0.0-0.1); Eosinophils Absolute Auto 0.2 K/mm3 (0-0.3); Eosinophils Percent Auto 3.2 % (0-4.4); Hematocrit 32.6 % (42.0-52.0); Hemoglobin 10.8 g/dL (14.0-18.0); Immature Granulocyte Absolute 0.01 K/mm3 (0.00-0.031); Immature Granulocyte Percent A 0.2 % (0-0.5); Immature Platelet Fraction Pct 11.2 % (0.9-11.2); Lymphocytes Absolute Auto 1.12 K/mm3 (0.9-3.2); Lymphocytes Percent Auto 22.5 % (18.3-44.2); Mean Corpuscular HGB Conc 33.1 g/dl (32-36); Mean Corpuscular Hemoglobin 37.5 pg (26-34); Mean Corpuscular Volume 113.2 fl (80-100); Monocytes Absolute Auto 0.9 K/mm3 (0.1-0.6); Monocytes Percent Auto 17.1 % (2.6-8.5); Neutrophils Absolute Auto 2.8 K/mm3 (1.3-6.7); Platelet Count Result 149 k/mm3 (150-375); Red Blood Count 2.88 M/mm3 (4.6-6.20)
[2022-02-07 10:55] LABS: Iron 146 ug/dL (49-181)
[2022-02-07 10:57] LABS: Alanine Aminotransferase 15 U/L (6-50); Albumin Level 4.6 g/dL (3.5-5.1); Alkaline Phosphatase 58 U/L (38-126); Anion Gap 11 mmol/L (8-16); Aspartate Amino Transferase 26 U/L (17-59); Bilirubin,Total 0.8 mg/dL (0.2-1.3); Blood Urea Nitrogen 31 mg/dL (9-20); Calcium 9.6 mg/dL (8.4-10.2); Carbon Dioxide 24 mmol/L (22-30); Chloride 104 mmol/L (98-107); Estimated Glomerular Filt Rate 37; Glucose 141 mg/dL (65-110); Sodium 139 mmol/L (137-145)
[2022-02-07 11:06] LABS: Percent Iron Saturation 43 % (20-50)
[2022-02-07 11:27] LABS: Carcinoembryonic Antigen 3.1 ng/mL (0.0-3.0)
== END 2022-02-07 09:50 | disposition home or self-care (01) ==
PROVIDERS: PCP Family Medicine Adolescent Medicine; Visit Provider Internal Medicine Hematology & Oncology
DX: C18.9 Malignant neoplasm of colon, unspecified (principal); D64.9 Anemia, unspecified
CPT/HCPCS: 36415; 80053; 82378; 82607; 82728; 83540; 83550; 85025; 85055

== ENCOUNTER 2022-03-21 07:14 | Outpatient (CLI) | payer MEDICARE, OTHER, SELFPAY ==
[2022-03-21 07:49] LABS: Creatinine Urine 147.4 mg/dL; Total Protein Urine Random 6 mg/dL; Ur Ttl Prot Creatinine Ratio 0.04 mg/mg (0-0.20)
[2022-03-21 07:53] LABS: Albumin Level 4.6 g/dL (3.5-5.1); Anion Gap 14 mmol/L (8-16); Blood Urea Nitrogen 29 mg/dL (9-20); Calcium 8.8 mg/dL (8.4-10.2); Carbon Dioxide 22 mmol/L (22-30); Chloride 104 mmol/L (98-107); Estimated Glomerular Filt Rate 35; Glucose 113 mg/dL (65-110); Phosphorus 3.3 mg/dL (2.5-4.5); Potassium 4.2 mmol/L (3.4-5.0); Sodium 140 mmol/L (137-145)
[2022-03-21 08:16] LABS: Parathyroid Intact 62.3 pg/mL (7.5-53.5)
[2022-03-21 08:21] LABS: Hematocrit 31.6 % (42.0-52.0); Hemoglobin 10.8 g/dL (14.0-18.0); Mean Corpuscular HGB Conc 34.2 g/dl (32-36); Mean Corpuscular Hemoglobin 37.9 pg (26-34); Mean Corpuscular Volume 110.9 fl (80-100); Mean Platelet Volume 11.6 fl (7.4-10.4); Platelet Count Result 160 k/mm3 (150-375); Red Blood Count 2.85 M/mm3 (4.6-6.20); White Blood Count 3.8 K/mm3 (4.5-10.0)
== END 2022-03-21 07:15 | disposition home or self-care (01) ==
LOC: ANHLAB 07:18
PROVIDERS: PCP Family Medicine Adolescent Medicine; Visit Provider Internal Medicine Nephrology
DX: N18.32 Chronic kidney disease, stage 3b (principal)
CPT/HCPCS: 36415; 80069; 82570; 83970; 84156; 85027

== ENCOUNTER 2022-07-04 07:27 | Outpatient (CLI) | payer MEDICARE, OTHER, SELFPAY ==
[2022-07-04 09:25] LABS: Alanine Aminotransferase 20 U/L (6-50); Albumin Level 4.6 g/dL (3.5-5.1); Alkaline Phosphatase 56 U/L (38-126); Anion Gap 8 mmol/L (8-16); Aspartate Amino Transferase 28 U/L (17-59); Bilirubin,Total 0.9 mg/dL (0.2-1.3); Blood Urea Nitrogen 25 mg/dL (9-20); Calcium 8.9 mg/dL (8.4-10.2); Carbon Dioxide 27 mmol/L (22-30); Chloride 107 mmol/L (98-107); Estimated Glomerular Filt Rate 35; Glucose 98 mg/dL (65-110); Potassium 4.4 mmol/L (3.4-5.0); Sodium 142 mmol/L (137-145)
[2022-07-04 09:33] LABS: Immunoglobulin A 51 mg/dL (70-400); Immunoglobulin G 1208 mg/dL (700-1600); Immunoglobulin M 35 mg/dL (40-230)
[2022-07-04 09:42] LABS: Basophils Absolute Auto 0.1 K/mm3 (0.0-0.1); Basophils Percent Auto 1.9 % (0.2-1.2); Eosinophils Absolute Auto 0.1 K/mm3 (0-0.3); Eosinophils Percent Auto 3.4 % (0-4.4); Hemoglobin 10.5 g/dL (14.0-18.0); Immature Granulocyte Absolute 0.02 K/mm3 (0.00-0.031); Immature Granulocyte Percent A 0.5 % (0-0.5); Immature Platelet Fraction Pct 10.2 % (0.9-11.2); Lymphocytes Percent Auto 23.8 % (18.3-44.2); Mean Corpuscular HGB Conc 33.9 g/dl (32-36); Mean Corpuscular Hemoglobin 37.9 pg (26-34); Mean Corpuscular Volume 111.9 fl (80-100); Mean Platelet Volume 11.6 fl (7.4-10.4); Monocytes Absolute Auto 0.6 K/mm3 (0.1-0.6); Monocytes Percent Auto 16.4 % (2.6-8.5); Platelet Count Result 136 k/mm3 (150-375); Red Blood Count 2.77 M/mm3 (4.6-6.20); Red Cell Distribution Width 15.2 % (11.5-14.5); White Blood Count 3.8 K/mm3 (4.5-10.0)
[2022-07-04 09:54] LABS: Carcinoembryonic Antigen 2.1 ng/mL (0.0-3.0)
[2022-07-04 10:01] LABS: Iron 165 ug/dL (49-181)
[2022-07-04 10:10] LABS: Percent Iron Saturation 50 % (20-50)
[2022-07-06 18:35] LABS: Abnormal Protein Band 1 0.8 g/dL; Albumin 4.4 g/dL (3.8-4.8); Alpha 1 Globulin 0.3 g/dL (0.2-0.3); Alpha 2 Globulin 0.5 g/dL (0.5-0.9); Beta 1 Globulin 0.4 g/dL (0.4-0.6); Protein, Total 6.9 g/dL (6.1-8.1)
[2022-07-07 04:48] LABS: Kappa\\Lambda Light Chains 0.37 (0.26-1.65); Lambda Light Chain 56.1 mg/L (5.7-26.3)
== END 2022-07-04 07:28 | disposition home or self-care (01) ==
LOC: ANHLAB 07:31
PROVIDERS: PCP Family Medicine Adolescent Medicine; Visit Provider Internal Medicine Hematology & Oncology
DX: D64.9 Anemia, unspecified (principal); C18.9 Malignant neoplasm of colon, unspecified
CPT/HCPCS: 36415; 80053; 82378; 82728; 82784; 83540; 83550; 83883; 84155; 84165; 85025; 85055

== ENCOUNTER 2022-07-26 02:18 | Day surgery (SDC) | payer MEDICARE, OTHER, SELFPAY ==
[2022-07-25 14:41] VITALS: BMI 25.7
--- NOTE | ~2022-07-26 | BM_ITS ---
EXAMINATION: CCL bone marrow asp w bx diag ORDER COMPLETED DATE: 07/26/2022 10:55 INDICATION: Anemia. MGUS TECHNIQUE: A time-out was performed to verify the patient's name, date of , and procedure to b e performed. The procedure including the risks and benefits was discussed with the patient. Risks dis cussed included bleeding, infection, nerve injury and allergic reaction. The patient understood the r isks and agreed to proceed. The skin overlying the right posterior iliac spine was prepped and draped in usual sterile fashion. Anesthetic was administered with 1% lidocaine subcutaneously. Moderate co nscious sedation was achieved with 50 mcg fentanyl IV. An 11 gauge needle was inserted into the ilium with fluoroscopic guidance. Bone marrow was aspirated. An 8 gauge needle was then inserted into the ilium with fluoroscopic guidance. A core bone marrow biopsy was obtained. The needle was removed and the entry site was cleaned and dressed. There were no immediate complications. A total of 31 fluoros copic images were recorded. Fluoroscopy exposure time was 0.1 minutes. FINDINGS: Real-time fluoroscopy demonstrates the biopsy needle tip overlying the right posterior rosalie c spine. IMPRESSION: 1. Successful fluoroscopic guided bone marrow aspiration. 2. Successful fluoroscopic guided bone marrow biopsy. Reviewed, dictated and finalized at location A. [employer]
[2022-07-26 08:34] VITALS: BMI 24.5
[2022-07-26 08:49] VITALS: BP 154/78; PULSE 73; RESP 15; TEMP 36.7; O2SAT 100
[2022-07-26 08:57] LABS: Basophils Absolute Auto 0.1 K/mm3 (0.0-0.1); Basophils Percent Auto 1.7 % (0.2-1.2); Eosinophils Absolute Auto 0.1 K/mm3 (0-0.3); Eosinophils Percent Auto 4.6 % (0-4.4); Hematocrit 30.9 % (42.0-52.0); Hemoglobin 10.2 g/dL (14.0-18.0); Immature Granulocyte Absolute 0.01 K/mm3 (0.00-0.031); Immature Granulocyte Percent A 0.3 % (0-0.5); Immature Platelet Fraction Pct 10.6 % (0.9-11.2); Lymphocytes Absolute Auto 0.98 K/mm3 (0.9-3.2); Lymphocytes Percent Auto 32.3 % (18.3-44.2); Mean Corpuscular Hemoglobin 38.3 pg (26-34); Mean Corpuscular Volume 116.2 fl (80-100); Mean Platelet Volume 11.9 fl (7.4-10.4); Monocytes Absolute Auto 0.5 K/mm3 (0.1-0.6); Monocytes Percent Auto 17.5 % (2.6-8.5); Neutrophils Absolute Auto 1.3 K/mm3 (1.3-6.7); Neutrophils Percent Auto 43.6 % (45.5-73.1); Platelet Count Result 143 k/mm3 (150-375); Red Blood Count 2.66 M/mm3 (4.6-6.20); Red Cell Distribution Width 15.8 % (11.5-14.5)
[2022-07-26 09:03] LABS: INR 1.2; Prothrombin Time 14.8 Seconds (11.1-14.7)
[2022-07-26 09:10] LABS: Macrocytosis 2+ (NORMAL); Platelet Estimate Adequate (Adequate); Schistocytes None Seen (NORMAL)
[2022-07-26 09:12] LABS: Anisocytosis 1+ (NORMAL)
--- NOTE | 2022-07-26 10:11 | WPDMODSED ---
Moderate Sedation Note-Pt Data Patient Data Diagnosis: colon cancer Present Complaint: MGUS and anemia Procedure to be performed/Plan: bone marrow biospy Allergies Allergy/AdvReac Type Severity Reaction Status Date / Time No Known Allergies Allergy Verified 07/26/22 08:32 Home Medications Medication Instructions Recorded Confirmed Type aspirin 81 mg tablet,delayed 81 mg PO HS 05/10/21 07/26/22 History release omega 8-qcl-gbe-fish oil 1,200 mg 2 cap PO BID 05/10/21 07/25/22 History (144 mg-216 mg) capsule (Fish Oil) cyanocobalamin (vitamin B-12) 1,000 mcg PO HS 06/22/21 07/25/22 History 1,000 mcg tablet ferrous sulfate 325 mg (65 mg 325 mg PO BID 06/22/21 07/25/22 History iron) tablet (Iron (ferrous sulfate)) clopidogrel 75 mg tablet 75 mg PO DAILY 07/25/22 07/26/22 History fenofibrate 160 mg tablet 160 mg PO HS 07/25/22 07/25/22 History losartan 100 mg tablet 100 mg PO DAILY 07/25/22 07/25/22 History Sedation/Anesthesia: No previous sedation/anesthesia problems (including family history). [facility] Past Medical History Medical History Arthritis CKD (chronic kidney disease) Hyperlipidemia Hypertension PVD (peripheral vascular disease) Stroke TIA (transient ischemic attack) Surgical History Surgical History H/O colectomy right colectomy 06/28/21 History of carotid endarterectomy 2002 Family History Family History Other Cancer Diabetes mellitus Hypertension Social History Social History Smoking packs per day: 1 Smoking cigarettes per day: 20.0 Years smoked: 30 Smoking pack-years: 30.00 Smoking status: Former smoker Tobacco type: cigarettes Second hand tobacco smoke exposure: No Smoking end date: 07/08/04 Additional smoking assessment comments: STATES QUITTING AROUND 2002 Alcohol intake: former Alcohol use details: STATES QUITTING AROUND 2009 Substance use: never Substance use type: does not use Living arrangements: with family Additional living arrangements comments: PT LIVES WITH SISTERS X2 Spiritual care concerns: No Mod Sed Physical Exam Physical Exam Pre Procedural Exam: Normal: Appearance, Throat, Lungs, Heart Rate, Heart Rhythm and Abdomen Hours since solid foods: 12 Hours since liquid intake: 12 Mallampati Classification: class II Internal Medicine - PN: Obj Da Vital Signs Vital Signs: Vital Signs - 24 hr 07/26/22 08:49 Temperature 98.1 F Pulse Rate 73 Respiratory Rate 15 Blood Pressure 154/78 H Pulse Oximetry 100 Oxygen Delivery Room Air Labs 07/26/22 08:40 Labs: Laboratory Results - last 24 hr 07/26/22 07/26/22 08:40 08:40 WBC 3.0 L RBC 2.66 L Hgb 10.2 L Hct 30.9 L MCV 116.2 H MCH 38.3 H MCHC 33.0 RDW 15.8 H Plt Count 143 L MPV 11.9 H Immature Gran % (Auto) 0.3 Neut % (Auto) 43.6 L Lymph % (Auto) 32.3 [place] % (Auto) 17.5 H Eos % (Auto) 4.6 H Baso % (Auto) 1.7 H Lymph # (Auto) 0.98 [place] # (Auto) 0.5 Eos # (Auto) 0.1 Baso # (Auto) 0.1 Abs Immat Gran (auto) 0.01 Absolute Neuts (auto) 1.3 Absolute Nucleated RBC 0.0 Nucleated RBC % 0.0 Platelet Estimate Adequate % Immature Plt Fraction 10.6 Anisocytosis 1+ Macrocytosis 2+ Schistocytes None seen PT 14.8 H INR 1.2 ASA Classification/Sedation ASA Classification/Sedation ASA Class: III Emergent: No Risks: Risks, benefits and alternatives explained and patient/family accepted plan for sedation. Patient re-evaluated immediately prior to sedation.
[2022-07-26 10:55] VITALS: BP 118/87; PULSE 68; RESP 22; O2SAT 97
[2022-07-26 11:10] VITALS: BP 137/69; PULSE 60; RESP 14; O2SAT 98
[2022-07-26 11:25] VITALS: BP 149/63; PULSE 61; RESP 22
[2022-07-26 11:37] VITALS: BP 142/60; PULSE 66; RESP 19; O2SAT 97
== END 2022-07-26 11:44 | disposition home or self-care (01) ==
PROVIDERS: PCP Family Medicine Adolescent Medicine; Visit Provider Radiology Diagnostic Radiology
DX: D61.818 Other pancytopenia (principal); D64.9 Anemia, unspecified; D47.2 Monoclonal gammopathy; C18.9 Malignant neoplasm of colon, unspecified; I12.9 Hypertensive chronic kidney disease with stage 1 through stage 4 chronic kidney disease, or unspecified chronic kidney disease; N18.9 Chronic kidney disease, unspecified; E78.5 Hyperlipidemia, unspecified; I73.9 Peripheral vascular disease, unspecified; Z86.73 Personal history of transient ischemic attack (TIA), and cerebral infarction without residual deficits; Z90.49 Acquired absence of other specified parts of digestive tract; Z87.891 Personal history of nicotine dependence; Z79.82 Long term (current) use of aspirin; Z79.02 Long term (current) use of antithrombotics/antiplatelets
CPT/HCPCS: 36415; 38222; 85025; 85055; 85610; 88184; 88185; 88305; 88311; 88313; 88341; 88342; J1642; J3010; J7040

== ENCOUNTER 2022-10-31 08:04 | Outpatient (CLI) | payer MEDICARE, OTHER, SELFPAY ==
[2022-10-31 08:24] LABS: Basophils Percent Auto 1.2 % (0.2-1.2); Eosinophils Absolute Auto 0.1 K/mm3 (0-0.3); Eosinophils Percent Auto 4.3 % (0-4.4); Hematocrit 29.6 % (42.0-52.0); Hemoglobin 9.7 g/dL (14.0-18.0); Immature Granulocyte Absolute 0.05 K/mm3 (0.00-0.031); Immature Granulocyte Percent A 1.5 % (0-0.5); Lymphocytes Absolute Auto 0.93 K/mm3 (0.9-3.2); Lymphocytes Percent Auto 28.5 % (18.3-44.2); Mean Corpuscular HGB Conc 32.8 g/dl (32-36); Mean Corpuscular Hemoglobin 38.8 pg (26-34); Mean Corpuscular Volume 118.4 fl (80-100); Mean Platelet Volume 10.3 fl (7.4-10.4); Monocytes Absolute Auto 0.6 K/mm3 (0.1-0.6); Monocytes Percent Auto 18.4 % (2.6-8.5); Neutrophils Absolute Auto 1.5 K/mm3 (1.3-6.7); Neutrophils Percent Auto 46.1 % (45.5-73.1); Platelet Count Result 158 k/mm3 (150-375); White Blood Count 3.3 K/mm3 (4.5-10.0)
[2022-10-31 09:27] LABS: Alanine Aminotransferase 24 U/L (6-50); Albumin Level 4.4 g/dL (3.5-5.1); Alkaline Phosphatase 60 U/L (38-126); Anion Gap 4 mmol/L (8-16); Aspartate Amino Transferase 29 U/L (17-59); Bilirubin,Total 0.6 mg/dL (0.2-1.3); Blood Urea Nitrogen 27 mg/dL (9-20); Calcium 8.7 mg/dL (8.4-10.2); Carbon Dioxide 31 mmol/L (22-30); Chloride 107 mmol/L (98-107); Estimated Glomerular Filt Rate 42; Glucose 111 mg/dL (65-110); Potassium 4.1 mmol/L (3.4-5.0); Sodium 142 mmol/L (137-145)
[2022-10-31 09:57] LABS: Carcinoembryonic Antigen 1.8 ng/mL (0.0-3.0)
== END 2022-10-31 08:05 | disposition home or self-care (01) ==
LOC: ANHLAB 08:07
PROVIDERS: PCP Family Medicine Adolescent Medicine; Visit Provider Internal Medicine Hematology & Oncology
DX: C18.9 Malignant neoplasm of colon, unspecified (principal)
CPT/HCPCS: 36415; 80053; 82378; 85025

== ENCOUNTER 2022-12-06 00:30 | Day surgery (SDC) | payer MEDICARE, OTHER, SELFPAY ==
[2022-11-21 15:07] VITALS: BMI 25.9
[2022-12-06 11:02] VITALS: BP 135/56; PULSE 79; RESP 16; TEMP 36.3; O2SAT 96
[2022-12-06] MEDS: LACTATED RINGERS 1,000 ML 150 ML IV CONT (11:18)
--- NOTE | 2022-12-06 11:40 | PM.HPGS ---
History of Present Illness History of Present Illness Consent: Risks, benefits, and alternatives have been discussed and questions answered. Patient agrees to proceed with procedure. Chief complaint: colon ca Narrative: Natalio Villaseñor is a 77 year old male Presents for follow-up screening colonoscopy. Patient has a history of colon carcinoma I have identified in the cecum June of 2021 and underwent resection. Was rather large primary with no lymph node involvement. Patient presents today for follow-up colonoscopy. Patient's family history is noncontributory. Patient reports his current weight appetite bowel movements are normal. Review of Systems Review of Systems: Review of systems noncontributory. [facility] Past Medical History Medical History Arthritis CKD (chronic kidney disease) Hyperlipidemia Hypertension PVD (peripheral vascular disease) Stroke TIA (transient ischemic attack) Surgical History Surgical History H/O colectomy right colectomy 06/28/21 History of carotid endarterectomy 2002 Family History Family History Other Cancer Diabetes mellitus Hypertension Social History Social History Smoking packs per day: 1 Smoking cigarettes per day: 20.0 Years smoked: 30 Smoking pack-years: 30.00 Smoking status: Former smoker Tobacco type: cigarettes Second hand tobacco smoke exposure: No Smoking end date: 07/08/04 Additional smoking assessment comments: STATES QUITTING AROUND 2002 Alcohol intake: former Alcohol use details: STATES QUITTING AROUND 2009 Substance use: never Substance use type: does not use Living arrangements: with family Additional living arrangements comments: PT LIVES WITH SISTERS X2 Spiritual care concerns: No Meds Home Medications and Allergies Home Medications Medication Instructions Recorded Confirmed Type aspirin 81 mg tablet,delayed 81 mg PO HS 05/10/21 11/21/22 History release omega 7-eau-uwd-fish oil 1,200 mg 2 cap PO BID 05/10/21 11/21/22 History (144 mg-216 mg) capsule (Fish Oil) cyanocobalamin (vitamin B-12) 1,000 mcg PO HS 06/22/21 11/21/22 History 1,000 mcg tablet ferrous sulfate 325 mg (65 mg 325 mg PO BID 06/22/21 11/21/22 History iron) tablet (Iron (ferrous sulfate)) clopidogrel 75 mg tablet 75 mg PO DAILY 07/25/22 11/21/22 History multivitamin (One-A-Day Essential 1 tablet PO DAILY 09/13/22 11/21/22 History tablet) irbesartan 150 mg tablet 150 mg PO DAILY #100 tabs 10/08/22 11/21/22 Rx fenofibrate 160 mg tablet 160 mg PO HS #90 tabs 11/13/22 11/21/22 Rx Allergies Allergy/AdvReac Type Severity Reaction Status Date / Time No Known Allergies Allergy Verified 12/06/22 11:00 Vital Signs Vital Signs - 24 hr 12/06/22 11:02 Temperature 97.4 F L Pulse Rate 79 Respiratory Rate 16 Blood Pressure 135/56 L Pulse Oximetry 96 Oxygen Delivery Room Air Exam Narrative: Physical exam reveals patient to be alert. Vital signs stable. HEENT exam is unremarkable. Patient is anicteric. Lungs are clear to auscultation and percussion. Heart is without murmur or extra sounds. Abdomen bowel sounds are present soft nontender with no organomegaly. Digital external rectal exam is normal. Assessment and Plan Assessment and plan (1) Adenocarcinoma of cecum: Code(s): C18.0 - Malignant neoplasm of cecum Status: Chronic Assessment and Plan: Patient had carcinoma of the cecum of the colon resected June 2021. Plan for surveillance colonoscopy now and consider this at intervals in the future. Further recommendations will be given after endoscopy. (2) History of colon polyps: Code(s): Z86.010 - Personal history of colonic polyps Status:
[2022-12-06 12:37] VITALS: BP 104/59; PULSE 77; RESP 24; O2SAT 95
[2022-12-06 12:47] VITALS: BP 108/53; PULSE 74; RESP 21; O2SAT 96
[2022-12-06 12:57] VITALS: BP 140/53; PULSE 65; RESP 19; O2SAT 98
== END 2022-12-06 13:09 | disposition home or self-care (01) ==
PROVIDERS: PCP Family Medicine Adolescent Medicine; Visit Provider Internal Medicine Gastroenterology
PROC: 0DJD8ZZ Inspection of Lower Intestinal Tract, Via Natural or Artificial Opening Endoscopic (ICD-10-PCS; CPT 45378; principal; 2022-12-06 12:30)
DX: Z08 Encounter for follow-up examination after completed treatment for malignant neoplasm (principal); K57.30 Diverticulosis of large intestine without perforation or abscess without bleeding; Z85.038 Personal history of other malignant neoplasm of large intestine; Z90.49 Acquired absence of other specified parts of digestive tract; Z98.0 Intestinal bypass and anastomosis status; I12.9 Hypertensive chronic kidney disease with stage 1 through stage 4 chronic kidney disease, or unspecified chronic kidney disease; N18.9 Chronic kidney disease, unspecified; E78.5 Hyperlipidemia, unspecified; I73.9 Peripheral vascular disease, unspecified; Z86.73 Personal history of transient ischemic attack (TIA), and cerebral infarction without residual deficits; Z87.891 Personal history of nicotine dependence; Z79.82 Long term (current) use of aspirin; Z79.02 Long term (current) use of antithrombotics/antiplatelets; Z86.010 Personal history of colon polyps
CPT/HCPCS: 45378; J2704; J7120

== ENCOUNTER 2023-02-07 10:07 | Outpatient (CLI) | payer MEDICARE, OTHER, SELFPAY ==
[2023-02-07 12:24] LABS: Alanine Aminotransferase 30 U/L (6-50); Albumin Level 4.8 g/dL (3.5-5.1); Alkaline Phosphatase 57 U/L (38-126); Anion Gap 9 mmol/L (8-16); Aspartate Amino Transferase 37 U/L (17-59); Bilirubin,Total 0.7 mg/dL (0.2-1.3); Blood Urea Nitrogen 35 mg/dL (9-20); Calcium 9.2 mg/dL (8.4-10.2); Carbon Dioxide 26 mmol/L (22-30); Chloride 104 mmol/L (98-107); Estimated Glomerular Filt Rate 37; Glucose 92 mg/dL (65-110); Potassium 4.3 mmol/L (3.4-5.0); Sodium 139 mmol/L (137-145)
[2023-02-07 12:24] LABS: Immunoglobulin A 45 mg/dL (70-400); Immunoglobulin G 905 mg/dL (700-1600); Immunoglobulin M 26 mg/dL (40-230)
[2023-02-07 12:52] LABS: Carcinoembryonic Antigen 1.9 ng/mL (0.0-3.0)
[2023-02-07 13:00] LABS: Basophils Absolute Auto 0.1 K/mm3 (0.0-0.1); Basophils Percent Auto 1.3 % (0.2-1.2); Eosinophils Absolute Auto 0.1 K/mm3 (0-0.3); Hematocrit 30.6 % (42.0-52.0); Hemoglobin 10.4 g/dL (14.0-18.0); Immature Granulocyte Absolute 0.01 K/mm3 (0.00-0.031); Immature Granulocyte Percent A 0.2 % (0-0.5); Immature Platelet Fraction Pct 9.8 % (0.9-11.2); Lymphocytes Percent Auto 29.7 % (18.3-44.2); Mean Corpuscular Hemoglobin 38.1 pg (26-34); Mean Corpuscular Volume 112.1 fl (80-100); Mean Platelet Volume 11.5 fl (7.4-10.4); Monocytes Absolute Auto 0.8 K/mm3 (0.1-0.6); Monocytes Percent Auto 16.3 % (2.6-8.5); Neutrophils Absolute Auto 2.3 K/mm3 (1.3-6.7); Neutrophils Percent Auto 49.5 % (45.5-73.1); Platelet Count Result 152 k/mm3 (150-375); Red Blood Count 2.73 M/mm3 (4.6-6.20); Red Cell Distribution Width 15.2 % (11.5-14.5); White Blood Count 4.7 K/mm3 (4.5-10.0)
[2023-02-07 13:09] LABS: Anisocytosis 1+ (NORMAL); Platelet Estimate Adequate (Adequate); Schistocytes None Seen (NORMAL)
[2023-02-10 09:06] LABS: Kappa\\Lambda Light Chains 0.59 (0.26-1.65); Lambda Light Chain 34.3 mg/L (5.7-26.3)
[2023-02-10 16:33] LABS: Abnormal Protein Band 1 0.4 g/dL; Albumin 4.7 g/dL (3.8-4.8); Alpha 1 Globulin 0.3 g/dL (0.2-0.3); Alpha 2 Globulin 0.6 g/dL (0.5-0.9); Beta 1 Globulin 0.4 g/dL (0.4-0.6); Gamma Globulin 0.9 g/dL (0.8-1.7)
== END 2023-02-07 10:08 | disposition home or self-care (01) ==
LOC: ANHLAB 10:09
PROVIDERS: PCP Family Medicine Adolescent Medicine; Visit Provider Internal Medicine Hematology & Oncology
DX: D72.9 Disorder of white blood cells, unspecified (principal); C18.9 Malignant neoplasm of colon, unspecified
CPT/HCPCS: 36415; 80053; 82378; 82784; 83883; 84155; 84165; 85025; 85055

== ENCOUNTER 2023-02-18 08:48 | Outpatient (CLI) | payer MEDICARE, OTHER, SELFPAY ==
--- NOTE | ~2023-02-18 | CT_ITS ---
EXAMINATION: CT abdomen pelvis w con INDICATION: Malignant neoplasm of the colon TECHNIQUE: Computed tomographic images of the abdomen and pelvis were obtained after the administrati on of 100 cc of Omnipaque 350 intravenous contrast. The dose-length product (DLP) was 604.02 mGy-cm. Automated exposure control and iterative reconstruction technique were employed. COMPARISON: 01/24/2022, 06/26/2021 FINDINGS: There is mild emphysema of the visualized lung bases. The heart size is normal. The liver, spleen, pancreas, and adrenal glands are normal. There is a stone in the nondistended gallbladder. Hy poattenuating lesions in the kidneys, measuring up to 6 mm on the right, are too small to characteriz e but likely represent cysts. No pathologically enlarged abdominal or pelvic lymph nodes are identifi ed. No free intraperitoneal gas or evidence of bowel obstruction. Colonic diverticulosis is present w ithout evidence of diverticulitis. There are changes of right hemicolectomy. There is moderate lumbar spondylosis. There is a small umbilical hernia containing fat. IMPRESSION: 1. Changes of right hemicolectomy without evidence of residual or metastatic disease. Reviewed, dictated and finalized at location B. IMPRESSION: 1. Changes of right hemicolectomy without evidence of residual or metastatic di pedro.
[2023-02-18 09:11] LABS: Estimated Glomerular Filt Rate 31
== END 2023-02-18 08:49 | disposition home or self-care (01) ==
LOC: ANHIMG 08:49
PROVIDERS: PCP Family Medicine Adolescent Medicine; Visit Provider Internal Medicine Hematology & Oncology
DX: C18.9 Malignant neoplasm of colon, unspecified (principal)
CPT/HCPCS: 74177; Q9967

== ENCOUNTER 2023-04-17 08:44 | Outpatient (CLI) | payer MEDICARE, OTHER, SELFPAY ==
[2023-04-17 10:42] LABS: Albumin Level 4.7 g/dL (3.5-5.1); Anion Gap 6 mmol/L (8-16); Blood Urea Nitrogen 25 mg/dL (9-20); Calcium 9.3 mg/dL (8.4-10.2); Carbon Dioxide 29 mmol/L (22-30); Chloride 103 mmol/L (98-107); Estimated Glomerular Filt Rate 32; Glucose 103 mg/dL (65-110); Phosphorus 2.8 mg/dL (2.5-4.5); Potassium 4.2 mmol/L (3.4-5.0); Sodium 138 mmol/L (137-145)
== END 2023-04-17 08:45 | disposition home or self-care (01) ==
PROVIDERS: Internal Medicine Nephrology; PCP Family Medicine Adolescent Medicine; Visit Provider Internal Medicine Hematology & Oncology
DX: N18.32 Chronic kidney disease, stage 3b (principal)
CPT/HCPCS: 36415; 80069

== ENCOUNTER 2023-05-09 07:01 | Outpatient (CLI) | payer MEDICARE, OTHER, SELFPAY ==
[2023-05-02 14:33] VITALS: BMI 26.1
--- NOTE | 2023-05-02 14:33 | PC.NURSE ---
Pre Radiology instructions Report to the outpatient [facility] on date _[id number]_ at time _0730_ for procedure Time: _30_ YOU MAY BE MONITORED AT HOSPITAL FOR UP TO 4 HOURS AFTER YOUR PROCEDURE. A visitor will be allowed to accompany the patient into the hospital. You and your visitor will be asked to self-screen and do not enter if you have any COVID symptoms. A mask is OPTIONAL within the hospital. Patients are to have no food or drink 6 hours prior to procedure time Driving will be restricted after the procedure, you must have a person to drive you home. Labs will be drawn in preop area and once reviewed, you will be taken to radiology area for procedure. When the procedure is completed, you will be taken to outpatient where you will be monitored for several hours. You may have one visitor in this area. Other than holding anti-coagulants, patient may take other medication(s) as scheduled. Prior to your appointment date patients are instructed to hold anti-coagulants after discussing with ordering provider to stop. If unable to discontinue anti-coagulants please notify radiologist. ? No aspirin for 7 days prior to the procedure. ? No clopidogrel (Plavix), for 5 days prior to the procedure. Natalio was already aware of the need to stop these meds at time of interview. ? Medications to discontinue per physician: Date to take last dose: Please leave all valuables, including medications, at home the day of procedure. The hospital will not accept responsibility for valuables. Wear comfortable, loose fitting clothing.? Follow any additional instructions given to you from ordering provider. Telephone instructions given to _Natalio__and asked if any additional questions and then verbalized understanding. Patient advised to call scheduling provider office or registration scheduling [phone] if any additional questions.
[2023-05-09] VITALS (15 sets, daily range): BP systolic 109–154; BP diastolic 50–72; PULSE 45–74; RESP 16–18; TEMP 36.9; O2SAT 95–100
--- NOTE | ~2023-05-09 | US_ITS ---
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 TECHNIQUE: The procedure including the risks, benefits, and alternatives was discussed with the patie nt. Risks discussed included bleeding and infection. The patient understood the risks and agreed to p roceed. A timeout was performed to verify the patient's name, date of , and procedure to be p erformed. The skin overlying the left kidney was prepped and draped in usual sterile fashion. Anest hetic was administered with 1% lidocaine subcutaneously. An 18 gauge core biopsy needle was then use d to obtain 4 core biopsy specimens under continuous sonographic guidance. The entry site was cleaned and dressed. There were no immediate complications. FINDINGS: Ultrasound images demonstrate the needle in the kidney. IMPRESSION: 1. Ultrasound-guided random left kidney core needle biopsy. Reviewed, dictated and finalized at location A.
[2023-05-09 08:49] LABS: Immature Platelet Fraction Pct 10.6 % (0.9-11.2); Mean Platelet Volume 11.9 fl (7.4-10.4); Platelet Count Result 140 k/mm3 (150-375)
[2023-05-09 09:00] LABS: INR 1.2
--- NOTE | 2023-05-09 11:31 | SUR.PHASEII ---
Pt. NPO for two hours following renal biopsy per RN on handoff. Clear liquids for 2 hours after that per RN on handoff.
== END 2023-05-09 15:12 | disposition home or self-care (01) ==
PROVIDERS: PCP Family Medicine Adolescent Medicine; Referring Provider Internal Medicine Nephrology; Visit Provider Radiology Diagnostic Radiology
PROC: (CPT 76942; principal; 2023-05-09 09:30)
DX: D89.2 Hypergammaglobulinemia, unspecified (principal); I12.9 Hypertensive chronic kidney disease with stage 1 through stage 4 chronic kidney disease, or unspecified chronic kidney disease; N18.9 Chronic kidney disease, unspecified
CPT/HCPCS: 36415; 50200; 76942; 85049; 85055; 85610; 88300; 88305; 88313; 88329; 88346; 88348; 88350

== ENCOUNTER 2023-06-17 08:26 | Outpatient (CLI) | payer MEDICARE, OTHER, SELFPAY ==
[2023-06-17 08:50] LABS: Basophils Percent Auto 1.2 % (0.2-1.2); Eosinophils Absolute Auto 0.1 K/mm3 (0-0.3); Eosinophils Percent Auto 3.7 % (0-4.4); Hematocrit 31.3 % (42.0-52.0); Hemoglobin 10.5 g/dL (14.0-18.0); Immature Granulocyte Absolute 0.01 K/mm3 (0.00-0.031); Immature Granulocyte Percent A 0.3 % (0-0.5); Lymphocytes Absolute Auto 1.02 K/mm3 (0.9-3.2); Lymphocytes Percent Auto 31.4 % (18.3-44.2); Mean Corpuscular HGB Conc 33.5 g/dl (32-36); Mean Corpuscular Hemoglobin 39.2 pg (26-34); Mean Corpuscular Volume 116.8 fl (80-100); Mean Platelet Volume 11.5 fl (7.4-10.4); Monocytes Absolute Auto 0.6 K/mm3 (0.1-0.6); Monocytes Percent Auto 17.5 % (2.6-8.5); Neutrophils Absolute Auto 1.5 K/mm3 (1.3-6.7); Neutrophils Percent Auto 45.9 % (45.5-73.1); Platelet Count Result 154 k/mm3 (150-375); Red Blood Count 2.68 M/mm3 (4.6-6.20); White Blood Count 3.3 K/mm3 (4.5-10.0)
[2023-06-17 11:11] LABS: Anion Gap 8 mmol/L (8-16); Blood Urea Nitrogen 23 mg/dL (9-20); Calcium 9.4 mg/dL (8.4-10.2); Carbon Dioxide 26 mmol/L (22-30); Chloride 104 mmol/L (98-107); Estimated Glomerular Filt Rate 34; Glucose 116 mg/dL (65-110); Potassium 4.4 mmol/L (3.4-5.0); Sodium 138 mmol/L (137-145)
== END 2023-06-17 08:27 | disposition home or self-care (01) ==
LOC: ANHLAB 08:30
PROVIDERS: PCP Family Medicine Adolescent Medicine; Visit Provider Internal Medicine Hematology & Oncology
DX: D64.9 Anemia, unspecified (principal); C18.2 Malignant neoplasm of ascending colon
CPT/HCPCS: 36415; 80048; 82378; 85025

== ENCOUNTER 2023-10-23 08:05 | Outpatient (CLI) | payer MEDICARE, OTHER, SELFPAY ==
[2023-10-23 08:31] LABS: Basophils Absolute Auto 0.1 K/mm3 (0.0-0.1); Basophils Percent Auto 1.4 % (0.2-1.2); Eosinophils Absolute Auto 0.1 K/mm3 (0-0.3); Eosinophils Percent Auto 2.9 % (0-4.4); Hematocrit 27.2 % (42.0-52.0); Hemoglobin 8.9 g/dL (14.0-18.0); Immature Granulocyte Absolute 0.01 K/mm3 (0.00-0.031); Immature Granulocyte Percent A 0.3 % (0-0.5); Lymphocytes Absolute Auto 0.98 K/mm3 (0.9-3.2); Lymphocytes Percent Auto 28.4 % (18.3-44.2); Mean Corpuscular HGB Conc 32.7 g/dl (32-36); Mean Corpuscular Hemoglobin 38.4 pg (26-34); Mean Corpuscular Volume 117.2 fl (80-100); Mean Platelet Volume 10.9 fl (7.4-10.4); Monocytes Absolute Auto 0.6 K/mm3 (0.1-0.6); Monocytes Percent Auto 17.7 % (2.6-8.5); Neutrophils Absolute Auto 1.7 K/mm3 (1.3-6.7); Neutrophils Percent Auto 49.3 % (45.5-73.1); Platelet Count Result 152 k/mm3 (150-375); Red Blood Count 2.32 M/mm3 (4.6-6.20); Red Cell Distribution Width 16.6 % (11.5-14.5); White Blood Count 3.5 K/mm3 (4.5-10.0)
[2023-10-23 10:13] LABS: Immunoglobulin A 66 mg/dL (70-400); Immunoglobulin G 1069 mg/dL (700-1600); Immunoglobulin M 34 mg/dL (40-230)
[2023-10-23 10:14] LABS: Alanine Aminotransferase 18 U/L (6-50); Albumin Level 4.8 g/dL (3.5-5.1); Alkaline Phosphatase 61 U/L (38-126); Anion Gap 9 mmol/L (4-12); Aspartate Amino Transferase 30 U/L (17-59); Bilirubin,Total 0.7 mg/dL (0.2-1.3); Blood Urea Nitrogen 42 mg/dL (9-20); Calcium 9.7 mg/dL (8.4-10.2); Carbon Dioxide 23 mmol/L (22-30); Chloride 109 mmol/L (98-107); Estimated Glomerular Filt Rate 26; Glucose 106 mg/dL (65-110); Potassium 4.9 mmol/L (3.4-5.0); Sodium 141 mmol/L (137-145)
[2023-10-23 10:57] LABS: Carcinoembryonic Antigen 3.4 ng/mL (0.0-3.0)
[2023-10-25 05:08] LABS: Protein, Total 6.9 g/dL (6.1-8.1)
[2023-10-25 13:18] LABS: Kappa\\Lambda Light Chains 0.47 (0.26-1.65); Lambda Light Chain 47.5 mg/L (5.7-26.3)
[2023-10-28 09:13] LABS: Abnormal Protein Band 1 0.5 g/dL (NONE DETECTED); Albumin 4.5 g/dL (3.8-4.8); Alpha 1 Globulin 0.3 g/dL (0.2-0.3); Alpha 2 Globulin 0.6 g/dL (0.5-0.9); Beta 1 Globulin 0.4 g/dL (0.4-0.6); Gamma Globulin 0.9 g/dL (0.8-1.7)
== END 2023-10-23 08:06 | disposition home or self-care (01) ==
PROVIDERS: PCP Family Medicine Adolescent Medicine; Visit Provider Internal Medicine Hematology & Oncology
DX: C18.2 Malignant neoplasm of ascending colon (principal); D72.9 Disorder of white blood cells, unspecified
CPT/HCPCS: 36415; 80053; 82378; 82784; 83883; 84155; 84165; 85025

== ENCOUNTER 2023-10-31 10:52 | Outpatient (CLI) | payer MEDICARE, OTHER, SELFPAY ==
[2023-10-31 13:04] LABS: Iron 169 ug/dL (49-181)
[2023-10-31 13:17] LABS: Percent Iron Saturation 51 % (20-50)
[2023-10-31 14:32] LABS: Folic Acid > 20.0 ng/mL (2.76->20)
[2023-11-05 12:44] LABS: Erythropoietin (EPO) 466.1 mIU/mL (2.6-18.5)
== END 2023-10-31 10:53 | disposition home or self-care (01) ==
PROVIDERS: PCP Family Medicine Adolescent Medicine; Visit Provider Internal Medicine Hematology & Oncology
DX: D64.9 Anemia, unspecified (principal)
CPT/HCPCS: 36415; 82607; 82668; 82728; 82746; 83540; 83550

== ENCOUNTER 2023-11-04 08:01 | Outpatient (CLI) | payer MEDICARE, OTHER, SELFPAY ==
[2023-11-04 08:33] LABS: Mean Corpuscular HGB Conc 32.1 g/dl (32-36); Mean Corpuscular Hemoglobin 38.1 pg (26-34); Mean Corpuscular Volume 118.6 fl (80-100); Mean Platelet Volume 11.3 fl (7.4-10.4); Platelet Count Result 150 k/mm3 (150-375); Red Blood Count 2.36 M/mm3 (4.6-6.20); White Blood Count 3.1 K/mm3 (4.5-10.0)
[2023-11-04 08:49] LABS: Albumin Level 4.8 g/dL (3.5-5.1); Anion Gap 6 mmol/L (4-12); Blood Urea Nitrogen 30 mg/dL (9-20); Calcium 9.9 mg/dL (8.4-10.2); Carbon Dioxide 26 mmol/L (22-30); Chloride 109 mmol/L (98-107); Estimated Glomerular Filt Rate 32; Glucose 105 mg/dL (65-110); Phosphorus 2.9 mg/dL (2.5-4.5); Potassium 4.6 mmol/L (3.4-5.0); Sodium 141 mmol/L (137-145)
[2023-11-04 08:52] LABS: Parathyroid Intact 39.3 pg/mL (7.5-53.5)
[2023-11-04 08:58] LABS: Creatinine Urine 125.2 mg/dL; Total Protein Urine Random 6 mg/dL; Ur Ttl Prot Creatinine Ratio 0.05 mg/mg (0-0.20)
== END 2023-11-04 08:02 | disposition home or self-care (01) ==
LOC: ANHLAB 08:04
PROVIDERS: PCP Family Medicine Adolescent Medicine; Visit Provider Internal Medicine Nephrology
DX: N18.32 Chronic kidney disease, stage 3b (principal)
CPT/HCPCS: 36415; 80069; 82570; 83970; 84156; 85027

== ENCOUNTER 2023-11-21 07:24 | Outpatient (CLI) | payer MEDICARE, OTHER, SELFPAY ==
--- NOTE | ~2023-11-21 | PE_ITS ---
EXAMINATION: PET skull to mid thigh DATE: 11/21/2023 09:40 INDICATION: Multiple myeloma. TECHNIQUE: Blood glucose level was 89 mg/dL. 10.421 mCi of 18-fluorodeoxyglucose (18-FDG) was adminis tered i.v. Low dose computed tomography (CT) images were acquired from the base of the brain to the p roximal thighs for attenuation correction and anatomic localization. Positron emission tomography (PE T) images were acquired in the same distribution beginning 68 minutes after injection. Images includi ng fused PET/CT images were reconstructed in axial, coronal, and sagittal planes. Automated exposure control technique was employed. The dose-length product was 749.53mGy-cm. COMPARISON: CT abdomen and pelvis dated 02/18/2023 FINDINGS: Head/neck: There is symmetric increased activity in the oral cavity, palatine tonsils, parotid glands, submandi bular glands, laryngeal muscles and ocular muscles without CT correlate, likely physiologic. No patho logically enlarged cervical lymphadenopathy or suspicious foci of increased FDG uptake in the visuali zed head or neck. Chest: Mild emphysema. Linear band of discoid atelectasis/scarring without increased FDG uptake at the apica l segment of the right upper lobe. No suspicious pulmonary nodules, pneumonia, pulmonary edema or ple ural effusion. Heart size normal. Atherosclerotic coronary artery calcific lesion. No pericardial eff usion. Thoracic aorta is normal in caliber. No pathologically enlarged or FDG avid thoracic lymphaden opathy. Abdomen/pelvis/proximal thighs: Physiologic renal accumulation and excretion of FDG activity in the kidneys, bladder and along portio ns of ureters. Normal degree and heterogenous pattern of increased uptake throughout the liver withou t radiologic correlate or dominant FDG avid lesion. 1.8 cm calcified gallstone in the otherwise rolly l-appearing gallbladder. The pancreas, spleen and bilateral adrenal glands are normal. Mild uptake sc attered throughout the bowels without radiologic correlate, also likely physiologic. There is extensi ve colonic diverticulosis with a sigmoid predominance without adjacent inflammatory change to suggest diverticulitis. Status post right hemicolectomy with right upper quadrant ileocolic anastomosis. No free intraperitoneal gas or fluid. No other abnormal foci of increased FDG uptake or pathologically enlarged lymphadenopathy in the abdomen, pelvis or proximal thighs. Musculoskeletal: Severe lower cervical spondylosis. There is diffuse mild increased FDG uptake throughout the axial an d appendicular skeleton with maximal SUV of 5.1 which is similar in degree to the activity in the nhan er. No evident lytic, blastic or more prominently FDG avid bone lesions identified. IMPRESSION: 1. Nonspecific relatively diffuse mild FDG uptake throughout the marrow of the axial and appendicular skeleton without focal more intense FDG avid lesion or corresponding lytic or blastic bone lesions t o suggest multiple myeloma. The diffuse increased uptake may be related to marrow stimulation given t he patient's current anemia. Reviewed, dictated and finalized at location A. IMPRESSION: 1. Nonspecific relatively diffuse mild FDG uptake throughout the marrow of the axial and appendicular skeleton without focal more intense FDG avid lesion or c orresponding lytic or blastic bone lesions to suggest multiple myeloma. The dif fuse increased uptake may be related to marrow stimulation given the patient's current anemia.
[2023-11-21 07:52] LABS: Glucose Point of Care 89 mg/dl (65-105)
== END 2023-11-21 07:25 | disposition home or self-care (01) ==
PROVIDERS: PCP Family Medicine Adolescent Medicine; Visit Provider Internal Medicine Hematology & Oncology
DX: C90.00 Multiple myeloma not having achieved remission (principal)
CPT/HCPCS: 78815; A9552

== ENCOUNTER 2024-04-16 08:19 | Outpatient (CLI) | payer MEDICARE, OTHER, SELFPAY ==
[2024-04-16 10:50] LABS: Creatinine Urine 143.9 mg/dL; Total Protein Urine Random 8 mg/dL; Ur Ttl Prot Creatinine Ratio 0.06 mg/mg (0-0.20)
[2024-04-16 10:51] LABS: Albumin Level 4.7 g/dL (3.5-5.1); Anion Gap 8 mmol/L (4-12); Blood Urea Nitrogen 29 mg/dL (9-20); Calcium 8.9 mg/dL (8.4-10.2); Carbon Dioxide 28 mmol/L (22-30); Chloride 104 mmol/L (98-107); Estimated Glomerular Filt Rate 34; Glucose 100 mg/dL (65-110); Phosphorus 2.7 mg/dL (2.5-4.5); Potassium 4.7 mmol/L (3.4-5.0); Sodium 140 mmol/L (137-145)
[2024-04-16 11:02] LABS: Parathyroid Intact 62.3 pg/mL (14.5-75.2)
== END 2024-04-16 08:20 | disposition home or self-care (01) ==
LOC: ANHLAB 08:22
PROVIDERS: Internal Medicine Nephrology; PCP Family Medicine Adolescent Medicine; Visit Provider Internal Medicine Hematology & Oncology
DX: I12.9 Hypertensive chronic kidney disease with stage 1 through stage 4 chronic kidney disease, or unspecified chronic kidney disease (principal); N18.32 Chronic kidney disease, stage 3b
CPT/HCPCS: 36415; 80069; 82570; 83970; 84156

== ENCOUNTER 2024-06-01 09:13 | Outpatient (CLI) | payer MEDICARE, OTHER, SELFPAY ==
[2024-06-01 09:36] LABS: INR 1.3; Prothrombin Time 16.9 Seconds (11.1-14.7)
[2024-06-01 09:37] LABS: Partial Thromboplastin Time 23.9 Seconds (22.3-36.8)
== END 2024-06-01 09:14 | disposition home or self-care (01) ==
LOC: ANHSURGERY 09:17
PROVIDERS: PCP Family Medicine Adolescent Medicine; Visit Provider Surgery
DX: D46.9 Myelodysplastic syndrome, unspecified (principal)
CPT/HCPCS: 36415; 85610; 85730

== ENCOUNTER 2024-06-11 00:19 | Day surgery (SDC) | payer MEDICARE, OTHER, SELFPAY ==
[2024-05-29 11:10] VITALS: BMI 25.4
--- NOTE | 2024-05-29 11:45 | PC.NURSE ---
Report to the Outpatient Waiting Room, entrance under the green pavilion located off [facility], at time ___9:00AM____ on date ___06/11/24____. Planned Procedure Time: ___11:00AM .? Time changes happen often and if your time is changed the preop area will call you the afternoon before. - You and your visitor will be asked to self-screen and do not enter if you have any COVID symptoms. Please call surgeon if you need to reschedule. - A mask is optional within the hospital at this time. Patients may have clear liquids (water, carbonated beverages, clear teas, apple juice) until 3 hours prior to surgery with a maximum of 20 ounces. - No food from midnight until time of surgery and no smoking. This includes no chewing gum, candy or mints. Take only the following medications on the morning of surgery: ____ALBUTEROL INHALER NEEDED DO NOT STOP ANY OF YOUR OTHER PRESCRIPTION MEDICATIONS PRIOR TO SURGERY EXCEPT THE FOLLOWING Medications to discontinue per physician HOLD PLAVIX PER DR BEGUM-PATIENT CONFIRMING. HOLD ALL VITAMINS/SUPPLEMENTS 3 DAYS PRE-OP PER ANESTHESIA- LAST DOSE ON 06/07/24. Please no make-up, nail kyrgyz, hairspray, perfume, deodorant, or body powder the day of surgery.? No jewelry (including any body piercings) or valuables the day of surgery, leave them at home.? Please take a shower or bath the night before, or the morning of, surgery with an antibacterial soap.? Wear comfortable, loose fitting clothing.? - Jewelry must be removed prior to entering the operating room.? Rings and piercings that are not removed may be cut off. - The hospital will not accept responsibility for valuables.? - Please leave all valuables, including medications, at home the day of surgery. If you are going home after surgery, a licensed winch driver must drive you home.? - NO public transportation without another adult if you receive anesthesia. - We recommend that an adult stay with you for 24 hours following discharge. - We also recommend that you do not drive, make important decision, drink alcoholic beverages, or take any drugs that were not prescribed by your health care provider for at least 24 hours after your discharge time. Follow any additional instructions given to you from your surgeon. Telephone instructions given to ____PATIENT and asked if any additional questions and then verbalized understanding. Patient advised to call surgeon office or pre surgery nurse liaison [phone] if any additional questions.
--- NOTE | 2024-06-10 15:40 | WPDANESEPP ---
Anes - Eval Pre Procedure Procedure: Operation Date: 06/11/24 09:45 Proposed Procedures p Insertion Diony Cath - Karla Reynolds MD Date/Time: 06/10/24 15:40 Pre Op Diagnosis: myelodysplastic syndrome Patient Data Age: 79 Gender: M Height: 1.8 m Weight: 83 kg Allergies Allergy/AdvReac Type Severity Reaction Status Date / Time No Known Allergies Allergy Verified 05/29/24 11:03 Home Medications Medication Instructions Recorded Confirmed Type aspirin 81 mg tablet,delayed 81 mg PO HS 05/10/21 05/29/24 History release omega 4-njc-jia-fish oil 1,200 mg 2 cap PO BID 05/10/21 05/29/24 History (144 mg-216 mg) capsule (Fish Oil) multivitamin (One-A-Day Essential 1 tablet PO DAILY 09/13/22 05/29/24 History tablet) albuterol sulfate 90 mcg/actuation 1 inh inhalation Q4H PRN shortness 09/12/23 05/29/24 Rx aerosol inhaler of breath or wheezing #8.5 grams clopidogrel 75 mg tablet 75 mg PO DAILY #90 tabs 10/09/23 05/29/24 Rx fenofibrate 160 mg tablet 160 mg PO HS #90 tabs 11/15/23 05/29/24 Rx ascorbic acid (vitamin C) 500 mg 500 mg PO BID 05/29/24 05/29/24 History capsule cyanocobalamin (vitamin B-12) 1,000 mcg PO DAILY 05/29/24 05/29/24 History 1,000 mcg tablet ferrous sulfate 325 mg (65 mg 325 mg PO DAILY 05/29/24 05/29/24 History iron) tablet irbesartan 150 mg tablet 150 mg PO HS 05/29/24 05/29/24 History Patient hx anesthesia problems: none Family hx anesthesia problems: none Results Review: All pre-operative results and documents have been reviewed as part of the pre-operative evaluation. [facility] Past Medical History Medical History Adenocarcinoma of cecum Arthritis CKD (chronic kidney disease) COVID-19 Hyperlipidemia Hypertension PVD (peripheral vascular disease) Stroke TIA (transient ischemic attack) Surgical History Surgical History H/O colectomy right colectomy 06/28/21 History of carotid endarterectomy 2002 Family History Family History Other Cancer Diabetes mellitus Hypertension Social History Social History Smoking packs per day: 1.5 Smoking cigarettes per day: 30.0 Years smoked: 40 Smoking pack-years: 60.00 Smoking status: Former smoker Tobacco type: cigarettes Second hand tobacco smoke exposure: No Smoking end date: 01/05/06 Additional smoking assessment comments: STATES QUITTING AROUND 2002 Alcohol intake: former Alcohol use details: HEAVY DRINKER WHEN YOUNGER, QUIT 2005 Substance use: never Substance use type: does not use Do You Feel Safe in your Home?: Yes Lack of Transportation: No Lack of Food: Never True Current Housing: I Do Not Have Housing Concerned About Future Housing: No Difficulty Paying Gas/Electric Bills: No Difficulty Paying for Meds: No Currently Unemployed: No Education: High School Diploma/GED Difficulty w/ Childcare or Family Care: No Living arrangements: with family Additional living arrangements comments: SISTER-PAT Gender identity (if verbalized by the patient): Female Spiritual care concerns: No Exam Day of Procedure 06/10/24 15:40
--- NOTE | ~2024-06-11 | XR_ITS ---
EXAMINATION: XR fl guide central line place DATE: 06/11/2024 11:31 INDICATION: Port placement. TECHNIQUE: 2 intraoperative fluoroscopic views of the chest were obtained. I was not present. Fluoros copy exposure time was 82 seconds. COMPARISON: PET/CT 11/21/2023 FINDINGS: There is a left subclavian port with tip not included. IMPRESSION: 1. Left subclavian port with tip not included. Reviewed, dictated and finalized at location A. E FARM AGENT
--- NOTE | ~2024-06-11 | XR_ITS ---
EXAMINATION: XR chest port-a-cath/central DATE: 06/11/2024 11:57 INDICATION: Port placement. TECHNIQUE: A single frontal view of the chest was obtained. COMPARISON: Chest 2 views 06/22/2021, PET/CT 11/21/2023 FINDINGS: There is mild atelectasis at left lung base. No pleural effusion or pneumothorax. The heart size is normal. There is a left subclavian port with tip in superior vena cava. There is deviation o f the catheter between the clavicle and first rib. IMPRESSION: 1. Port tip in superior vena cava. 2. Mild atelectasis at left lung base. Reviewed, dictated and finalized at location A. INE SET UP OPERATOR [employer]ER GOODS
[2024-06-11 08:00] VITALS: BP 149/58; PULSE 44; RESP 16; TEMP 36.6; O2SAT 99
--- NOTE | 2024-06-11 08:20 | PM.IMHP ---
H&P: HPI History of Present Illness Date/Time: 06/11/24 08:20 Chief Complaint: myelodysplastic syndrome Narrative: The patient is a 79-year-old male presenting to the hospital for port placement. The patient diagnosed with myelodysplastic syndrome in 2022 and now symptoms are worsening. The patient is going to be started on treatment at this time per Hematology. The patient has been referred for port placement. The patient denies any previous central venous catheterization. Pt is right handed. Review of Systems Review of Systems: All systems reviewed & are unremarkable except as noted in HPI and below PMFSH Past Medical History Medical History Adenocarcinoma of cecum Arthritis CKD (chronic kidney disease) COVID-19 Hyperlipidemia Hypertension PVD (peripheral vascular disease) Stroke TIA (transient ischemic attack) Surgical History Surgical History H/O colectomy right colectomy 06/28/21 History of carotid endarterectomy 2002 Family History Family History Other Cancer Diabetes mellitus Hypertension Social History Social History Smoking packs per day: 1.5 Smoking cigarettes per day: 30.0 Years smoked: 40 Smoking pack-years: 60.00 Smoking status: Former smoker Tobacco type: cigarettes Second hand tobacco smoke exposure: No Smoking end date: 01/05/06 Additional smoking assessment comments: STATES QUITTING AROUND 2002 Alcohol intake: former Alcohol use details: HEAVY DRINKER WHEN YOUNGER, QUIT 2005 Substance use: never Substance use type: does not use Do You Feel Safe in your Home?: Yes Lack of Transportation: No Lack of Food: Never True Current Housing: I Do Not Have Housing Concerned About Future Housing: No Difficulty Paying Gas/Electric Bills: No Difficulty Paying for Meds: No Currently Unemployed: No Education: High School Diploma/GED Difficulty w/ Childcare or Family Care: No Living arrangements: with family Additional living arrangements comments: SISTER-PAT Gender identity (if verbalized by the patient): Female Spiritual care concerns: No Meds Home Medications and Allergies Home Medications Medication Instructions Recorded Confirmed Type aspirin 81 mg tablet,delayed 81 mg PO HS 05/10/21 06/11/24 History release omega 8-wws-nde-fish oil 1,200 mg 2 cap PO BID 05/10/21 05/29/24 History (144 mg-216 mg) capsule (Fish Oil) multivitamin (One-A-Day Essential 1 tablet PO DAILY 09/13/22 05/29/24 History tablet) albuterol sulfate 90 mcg/actuation 1 inh inhalation Q4H PRN shortness 09/12/23 05/29/24 Rx aerosol inhaler of breath or wheezing #8.5 grams clopidogrel 75 mg tablet 75 mg PO DAILY #90 tabs 10/09/23 06/11/24 Rx fenofibrate 160 mg tablet 160 mg PO HS #90 tabs 11/15/23 05/29/24 Rx ascorbic acid (vitamin C) 500 mg 500 mg PO BID 05/29/24 05/29/24 History capsule cyanocobalamin (vitamin B-12) 1,000 mcg PO DAILY 05/29/24 05/29/24 History 1,000 mcg tablet ferrous sulfate 325 mg (65 mg 325 mg PO DAILY 05/29/24 05/29/24 History iron) tablet irbesartan 150 mg tablet 150 mg PO HS 05/29/24 05/29/24 History Allergies Allergy/AdvReac Type Severity Reaction Status Date / Time No Known Allergies Allergy Verified 06/11/24 09:03 Exam Const: General: cooperative, comfortable, no acute distress and ill appearing Neck: Neck: normal visual inspection, full ROM and no lymphadenopathy Chest: Chest palpation & inspection: normal inspection of the chest Resp: Effort & Inspection: normal respiratory effort Auscultation: diminished lung sounds Cardio: Rate: regular rate Rhythm: regular rhythm GI: Inspection: normal to inspection Assessment and Plan Assessment and plan (1) MDS (myelodysplastic syndrome): Code(s): D46.9 - Myelodysplastic syndrome, unspecified Status: Acute Assessment and Plan: Will set up for port placement in the operating room
[2024-06-11] MEDS: LACTATED RINGERS 1,000 ML 30 ML IV CONT (08:30)
[2024-06-11 09:04] LABS: Hematocrit 23.2 % (42.0-52.0); Hemoglobin 7.5 g/dL (14.0-18.0)
[2024-06-11] MEDS: KETOROLAC 15 MG/ML VIAL (*BKC) IV PUSH (09:05)
[2024-06-11 09:18] LABS: INR 1.2; Prothrombin Time 15.4 Seconds (11.1-14.7)
[2024-06-11 09:19] LABS: Partial Thromboplastin Time 24.8 Seconds (22.3-36.8)
--- NOTE | 2024-06-11 09:28 | WPDHPUPDATE1 ---
History and Physical Update Update Date/Time: 06/11/24 09:28 History and Physical has been reviewed, including an updated exam of the patient. There are NO changes in the patient's condition. Risks, benefits, and alternatives have been discussed and questions answered. Patient agrees to proceed with procedure.
--- NOTE | 2024-06-11 10:33 | P.PNAN_ITS ---
Anes - Initial Pre Proc Eval Procedure: Operation Date: 06/11/24 09:45 Proposed Procedures p Insertion Diony Cath - Karla Reynolds MD Date/Time: 06/11/24 10:33 Surgeon: Karla Reynolds MD Pre Op Diagnosis: myelodysplastic syndrome Patient Data Age: 79 Gender: M Height: 1.8 m Weight: 81.5 kg Last Vital Signs Temp 36.6 C 06/11/24 08:00 Pulse 44 L 06/11/24 08:00 Resp 16 06/11/24 08:00 BP 149/58 H 06/11/24 08:00 Pulse Ox 99 06/11/24 08:00 O2 Del Method Room Air 06/11/24 08:00 Allergies Allergy/AdvReac Type Severity Reaction Status Date / Time No Known Allergies Allergy Verified 06/11/24 09:03 Home Medications Medication Instructions Recorded Confirmed Type aspirin 81 mg tablet,delayed 81 mg PO HS 05/10/21 06/11/24 History release omega 7-utb-dhl-fish oil 1,200 mg 2 cap PO BID 05/10/21 05/29/24 History (144 mg-216 mg) capsule (Fish Oil) multivitamin (One-A-Day Essential 1 tablet PO DAILY 09/13/22 05/29/24 History tablet) albuterol sulfate 90 mcg/actuation 1 inh inhalation Q4H PRN shortness 09/12/23 05/29/24 Rx aerosol inhaler of breath or wheezing #8.5 grams clopidogrel 75 mg tablet 75 mg PO DAILY #90 tabs 10/09/23 06/11/24 Rx fenofibrate 160 mg tablet 160 mg PO HS #90 tabs 11/15/23 05/29/24 Rx ascorbic acid (vitamin C) 500 mg 500 mg PO BID 05/29/24 05/29/24 History capsule cyanocobalamin (vitamin B-12) 1,000 mcg PO DAILY 05/29/24 05/29/24 History 1,000 mcg tablet ferrous sulfate 325 mg (65 mg 325 mg PO DAILY 05/29/24 05/29/24 History iron) tablet irbesartan 150 mg tablet 150 mg PO HS 05/29/24 05/29/24 History Laboratory Tests 06/11/24 06/11/24 08:38 08:59 Hgb 7.5 L g/dL (14.0-18.0) Hct 23.2 L % (42.0-52.0) PT 15.4 H Seconds (11.1-14.7) INR 1.2 APTT 24.8 Seconds (22.3-36.8) Patient hx anesthesia problems: none Family hx anesthesia problems: none Results Review: All pre-operative results and documents have been reviewed as part of the pre- operative evaluation. [facility] Past Medical History Medical History Adenocarcinoma of cecum Arthritis CKD (chronic kidney disease) COVID-19 Hyperlipidemia Hypertension PVD (peripheral vascular disease) Stroke TIA (transient ischemic attack) Surgical History Surgical History H/O colectomy right colectomy 06/28/21 History of carotid endarterectomy 2002 Family History Family History Other Cancer Diabetes mellitus Hypertension Social History Social History Smoking packs per day: 1.5 Smoking cigarettes per day: 30.0 Years smoked: 40 Smoking pack-years: 60.00 Smoking status: Former smoker Tobacco type: cigarettes Second hand tobacco smoke exposure: No Smoking end date: 01/05/06 Additional smoking assessment comments: STATES QUITTING AROUND 2002 Alcohol intake: former Alcohol use details: HEAVY DRINKER WHEN YOUNGER, QUIT 2005 Substance use: never Substance use type: does not use Do You Feel Safe in your Home?: Yes Lack of Transportation: No Lack of Food: Never True Current Housing: I Do Not Have Housing Concerned About Future Housing: No Difficulty Paying Gas/Electric Bills: No Difficulty Paying for Meds: No Currently Unemployed: No Education: High School Diploma/GED Difficulty w/ Childcare or Family Care: No Living arrangements: with family Additional living arrangements comments: SISTER-PAT Gender identity (if verbalized by the patient): Female Spiritual care concerns: No Anes - Eval Final PreProcedure Day of Procedure 06/11/24 10:33 Patient weight: overweight Heart: regular rate and rhythm Lungs: clear to auscultation and normal air movement Airway: Mallampati scale class II and other (dentures removed) Neurological: alert and oriented Last oral intake: >/= 8 hours ASA classification: III Emergent: no Anesthetic plan: proceed Anesthesia type and monitoring: general GIVS and standard monitoring Results Review: All pre-operative results and documents have been reviewed as part of the pre- operative evaluation. Informed Consent: The patient's anesthetic plan and its attendant risks and benefits were discussed with the patient/family/POA. Questions were solicited and answers provided to the satisfaction of the patient/family/POA.
[2024-06-11] MEDS: HEPARIN SODIUM, PORCINE 10,000 UNITS/10 ML VIAL 10 UNITS IRRIGATION (10:47)
[2024-06-11] MEDS: ceFAZolin 2 GM/D5W 50 ML 2 GM/50 ML BAG IVPB (10:47)
[2024-06-11] MEDS: HEPARIN SODIUM 5,000 UNITS/ML VIAL 5000 UNITS IRRIGATION (10:47)
[2024-06-11] MEDS: BUPIVACAINE/EPINEPHRINE 0.5% 50 ML VIAL 30 ML INFILTRATE (10:47)
--- NOTE | 2024-06-11 11:31 | P.OP_ITS ---
Procedure Note - Detailed Date of Procedure 06/11/24 Pre-op Diagnosis myelodysplastic syndrome Post-op Diagnosis Same Procedure Performed Placement of left subclavian venous access device under both fluoroscopic and ultrasound guidance Surgeon Karla Reynolds MD Anesthesia MAC and Local Indications Pt is a 79-year-old male with myelodysplastic syndrome with worsening symptoms requiring access for further treatment Findings inability to pass left internal jugular guidewire, 1st stick left subclavian Description of Procedure Patient was brought into the operating room and placed in the supine position. After adequate induction of mac anesthesia, the patient was prepped and draped in normal sterile fashion. Time-out was then done to verify the patient's identity, as well as the procedure being performed. I began by using the ultrasound and identifying the left internal jugular vein. I then localized the area over the vein and made a small incision to allow access. Using the ultrasound, I was able to access the vein using an 18 gauge needle. Despite multiple attempts, I was unable to pass the guidewire past the junction. The patient did have a previous left-sided carotid endarterectomy. Given these findings, this approach was aborted and the decision was made to use the left subclavian vein. I began by making a small incision in the left chest, I then gained access into the left subclavian vein with an 18 gauge needle. I then placed the guidewire into the vein and confirmed placement via fluoroscopic guidance. I then locally anesthetized the area in the left chest. I then enla rged the incision around the guidewire including making a subcutaneous pocket inferiorly to allow placement of the port itself. I then placed a dilating sheath over the guidewire into the left subclavian vein via sterile Seldinger technique. This was once again done and confirmed via fluoroscopic guidance. I then removed the dilator and the guidewire, now just leaving the sheath in the vein. I then fed the previously flushed catheter into the left subclavian vein under fluoroscopic guidance. At approximately 22 cm, the catheter was noted to be near the atrial caval junction. I then peeled away the sheath, now just leaving the catheter in the vein. I then was able to easily draw and flush from the catheter. The catheter was cut to fit and attached to the port itself. The port was placed into the previously made subcutaneous pocket and sutured in with 0 Ethibond suture. Final fluoroscopic view showed the termination of the catheter at the atrial caval junction with a nice smooth curvature back to the port itself. I was able to gain access to the port with a Patino needle and was able to easily draw and flush from the port. I then flushed 4 cc of a final heparin flush into the port. The incision was closed with 3 0 Vicryl suture in the subcutaneous tissue and the skin was closed with 4 O Monocryl subcuticular suture. Dermabond was then placed on wound. The patient tolerated the procedure well and will be sent to the recovery room in stable condition. Estimated Blood Loss 10 Complications No immediate complications Condition Stable Disposition PACU [facility] Billing Surgery - Charge Forward: Surgery Billing
[2024-06-11 11:41] VITALS: BP 125/61; PULSE 105; RESP 16; O2SAT 98
[2024-06-11 12:10] VITALS: BP 125/56; PULSE 102; RESP 18
[2024-06-11 12:40] VITALS: BP 151/73; PULSE 93; RESP 16
== END 2024-06-11 12:55 | disposition home or self-care (01) ==
PROVIDERS: PCP Family Medicine Adolescent Medicine; Visit Provider Surgery
PROC: (CPT 36561; principal; 2024-06-11 09:45)
DX: D46.9 Myelodysplastic syndrome, unspecified (principal); I12.9 Hypertensive chronic kidney disease with stage 1 through stage 4 chronic kidney disease, or unspecified chronic kidney disease; N18.9 Chronic kidney disease, unspecified; E78.5 Hyperlipidemia, unspecified; I73.9 Peripheral vascular disease, unspecified; Z86.73 Personal history of transient ischemic attack (TIA), and cerebral infarction without residual deficits; Z85.038 Personal history of other malignant neoplasm of large intestine; Z90.49 Acquired absence of other specified parts of digestive tract; Z79.51 Long term (current) use of inhaled steroids; Z79.02 Long term (current) use of antithrombotics/antiplatelets; Z87.891 Personal history of nicotine dependence
CPT/HCPCS: 36561; 36415; 77001; 85014; 85018; 85610; 85730; C1788; J0690; J1100; J1596; J1644; J1885; J2003; J2371; J2405; J2704; J3010; J7030; J7120

== ENCOUNTER 2024-06-30 07:30 | Outpatient (RCR) | payer MEDICARE, OTHER, SELFPAY ==
[2024-06-30 07:41] VITALS: BP 106/41; PULSE 82; RESP 16; TEMP 36.9; O2SAT 97
[2024-06-30 07:54] VITALS: TEMP 36.9
[2024-06-30] MEDS: diphenhydrAMINE HCl CAP 25 MG CAPSULE PO (07:54)
[2024-06-30] MEDS: ACETAMINOPHEN 325 MG TABLET 650 MG PO (07:54)
[2024-06-30] MEDS: SODIUM CHLORIDE 0.9% IV 250 ML 30 ML IV CONT (07:55)
[2024-06-30 08:05] VITALS: BP 107/45; PULSE 72; RESP 16; TEMP 37.3; O2SAT 96
[2024-06-30 08:20] VITALS: BP 112/59; BP 124/51; PULSE 71; PULSE 98; RESP 18; TEMP 36.7; TEMP 37.1; O2SAT 98; O2SAT 99
[2024-06-30 09:20] VITALS: BP 139/55; PULSE 58; RESP 16; TEMP 36.8; O2SAT 98
[2024-06-30 10:42] VITALS: BP 125/54; PULSE 55; RESP 16; TEMP 36.6; O2SAT 100
[2024-06-30] MEDS: HEPARIN SODIUM LOCK FLUSH 500 UNITS/5 ML SYRINGE (10:45)
== END 2024-09-28 23:59 | disposition home or self-care (01) ==
LOC: ANHCPCTRAN 07:30
PROVIDERS: PCP Family Medicine Adolescent Medicine; Visit Provider Internal Medicine Medical Oncology
DX: D64.9 Anemia, unspecified (principal)
CPT/HCPCS: 36415; 36430; 86850; 86900; 86901; 86923; A9270; J7050; P9016

== ENCOUNTER 2024-07-07 07:08 | Outpatient (RCR) | payer MEDICARE, OTHER, SELFPAY ==
[2024-07-07] VITALS (9 sets, daily range): BP systolic 108–160; BP diastolic 46–72; PULSE 64–76; RESP 16–161; TEMP 36.5–36.7; O2SAT 97–100
[2024-07-07] MEDS: ACETAMINOPHEN 325 MG TABLET 650 MG PO (08:54)
[2024-07-07] MEDS: SODIUM CHLORIDE 0.9% IV 250 ML 30 ML IV CONT (08:55)
[2024-07-07] MEDS: diphenhydrAMINE HCl CAP 25 MG CAPSULE PO (08:55)
[2024-07-07] MEDS: FUROSEMIDE INJ 40 MG/4 ML VIAL 20 MG IV PUSH (11:04)
[2024-07-07] MEDS: HEPARIN SODIUM LOCK FLUSH 500 UNITS/5 ML SYRINGE (13:26)
== END 2024-10-05 23:59 | disposition home or self-care (01) ==
LOC: ANHCPCTRAN 07:08
PROVIDERS: PCP Family Medicine Adolescent Medicine; Visit Provider Internal Medicine Medical Oncology
DX: D64.9 Anemia, unspecified (principal)
CPT/HCPCS: 36415; 36430; 86850; 86900; 86901; 86923; 96374; A9270; J1940; J7050; P9016

== ENCOUNTER 2024-10-13 11:14 | Outpatient (CLI) | payer MEDICARE, OTHER, SELFPAY ==
[2024-10-13 12:17] LABS: Creatinine Urine 61.5 mg/dL; Total Protein Urine Random 10 mg/dL; Ur Ttl Prot Creatinine Ratio 0.16 mg/mg (0-0.20)
[2024-10-13 12:18] LABS: Albumin Level 4.6 g/dL (3.5-5.1); Anion Gap 9 mmol/L (4-12); Blood Urea Nitrogen 29 mg/dL (9-20); Calcium 9.2 mg/dL (8.4-10.2); Carbon Dioxide 28 mmol/L (22-30); Chloride 103 mmol/L (98-107); Estimated Glomerular Filt Rate 34; Glucose 113 mg/dL (65-110); Potassium 4.2 mmol/L (3.4-5.0); Sodium 140 mmol/L (137-145)
[2024-10-13 12:22] LABS: Parathyroid Intact 43.3 pg/mL (14.5-75.2)
--- OUTSIDE RECORDS SUMMARY | 2024-10-13 12:49 | XMS_ITS | Clinical Summary ---
Author Organization [facility] Address [address] [place] [id number] Care Team Providers Care Neighborhood Planner Name Role Phone Magen King MD Primary Care Prov ider Allergies No known active allergies Medications No known medications Active Problems No known active problems Surgical History Surgery Date Site/Laterality Comments BONE MARROW BIOPSY Medical History Medical History Date Comments Tobacco dependence CKD (chronic kidney disease) Iron deficiency anemia TIA (transient ischemic attack) Hypertension Anemia due to chronic kidney disease TIA (transient ischemic attack) Social History Tobacco Use Types Packs/Day Years Used Date Smoking Tobacco: Every Day Cigarettes Tobacco Cessation:Ready to Q uit: Not Asked; Counseling Given: Not Answered Personal Safety Answer Date Recorded Getting School Help Needed Not on file 09/23 Sex and Gender Information Value Date Recorded Sex Assigned at Not on file Legal Sex 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 DEVELOPER Gender Identity Not on file Sexual Orientation Not on file Obstetrics History Last Filed Vital Signs Vital Sign Reading Time Taken Comments Blood Pressure 138/71 09/21/2022 11:15 AM CDT Pulse 80 09/21/2022 11:15 AM CDT Temperature 36.6 C (97.8 F) 09/21/2022 4:27 AM CDT Respiratory Rate 18 09/21/2022 11:15 AM CDT Oxygen Saturation 93% 09/21/2022 9:00 AM CDT Inhaled Oxygen Concentration - - Weight 85 kg (187 lb 6.3 oz) 09/21/2022 4:27 AM CDT Height 180.3 cm (5' 11 ) 07/17/2013 9:00 AM WEBSITE DEVELOPER Body Mass Index 26.14 07/17/2013 9:00 AM WEBSITE DEVELOPER Plan of Treatment Health Maintenance Due Date Last Done Comments Depression Screening 1945 Fall Risk Assessment 1945 Hepatitis C Screening 1945 DTaP/Tdap/Td Vaccine (1 - Tdap) 1956 Hepatitis B Screening 1963 Zoster Vaccine (1 of 2) 1995 Well Visit 65+ 2010 Pneumococcal vaccine 65+ (2 of 2 - PPSV23) 05/03/2020 03/08/2020 Covid-19 Vaccine (5 - 2023-2 5 season) 2024 08/02/2022, 07/27/2021, 09/02/2020, Additional history exists Influenza Vaccine (Season Ended) 2025 08/01/19, 03/30/2021 Insurance MEDICARE [facility] Address: [address] [address] MEDICARE [facility] BENEFIT PLAN Care Teams Neighborhood Planner Relationship Specialty Start Date End Date Magen King MD [address] [place] [address] PCP - General Family Medicine 09/21/22
--- OUTSIDE RECORDS SUMMARY | 2024-10-13 12:49 | XMS_ITS | Referral Summary ---
Author Organization [facility] Address [address] [place] [id number] Care Team Providers Care Physician Obstetrician Name Role Phone Magen King MD Primary Care Prov ider Allergies No known active allergies Medications No known medications Active Problems No known active problems Social History Tobacco Use Types Packs/Day Years Used Date Smoking Tobacco: Every Day Cigarettes Tobacco Cessation:Ready to Q uit: Not Asked; Counseling Given: Not Answered Personal Safety Answer Date Recorded Getting School Help Needed Not on file 09/23 Sex and Gender Information Value Date Recorded Sex Assigned at Not on file Legal Sex Male 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 Gender Identity Not on file Sexual Orientation Not on file Last Filed Vital Signs Vital Sign Reading [...] cm (5' 11 ) 07/17/2013 9:00 AM IT SYSTEMS MANAGER Body Mass Index 26.14 07/17/2013 9:00 AM IT SYSTEMS MANAGER Plan of Treatment Not on file Insurance [facility] Member Subscriber Plan / Payer (Ef fective 2021-Present) Name:Natalio Damon Relation to Subscriber:Self Name:Natalio Damon Payer ID:[id number] Group ID:[id number] Type:CIGNA HMO/PPO Address: [place], [place] MEDICARE MEDICARE [facility] BENEFIT PLAN Care Teams Physician Obstetrician Relationship Specialty Start Date End Date Magen King MD [address] [place] [address] PCP - General Family Medicine 09/21/22
--- OUTSIDE RECORDS SUMMARY | 2024-10-13 12:49 | XMS_ITS | Encounter Summary ---
Author Organization [facility] JOSH Vasquez [facility] Address [address] [place] [address] Care Team Providers Care Car Conditioner Name Role Phone Magen King MD Primary Care Provider [phone] Encounter Details Date Type Department Care Team ([facility] Contact Info) Description 10/12/2024 Orders Only [facility] Oncology and Hematology [facility] [address] [place] [address] Nehemias Yang MD [address] [place], [place] [address] [address] [place] [phone] Anemia of chronic renal failure, stage 3b (CMS/HCC) Social History Tobacco Use Types Packs/Day Years Used Date Smoking Tobacco: Former Smokeless Tobacco: Never Alcohol Use Standard Drinks/Week Comments Not Currently 0 (1 standard drink = 0.6 oz pur e alcohol) Sex and Gender Information Value Date Recorded Sex Assigned at Not on file Legal Sex Male 2:58 PM CDT Gender Identity Not on file Sexual Orientation Not on file documented as of this encounter Plan of Treatment Upcoming Encounters Date Type Department Care Team (Late Contact Info) Description 11/16/2024 9:45 AM CDT Office Visit [facility] Oncology and Hematology [address] [place] [address] Nehemias Yang MD [facility] [address] [place] [phone] documented as of this encounter Visit Diagnoses Diagnosis Anemia of chronic renal failure, stage 3b (CMS/HCC) documented in this encounter Care Teams Car Conditioner Relationship Specialty Start Date End Date Magen King MD PCP - General Family Practice 05/23/21 documented as of this encounter
--- OUTSIDE RECORDS SUMMARY | 2024-10-13 12:49 | XMS_ITS | Encounter Summary ---
Author Organization [facility] Address [address] [place] [address] Care Team Providers Care Global Head [employer] Name Role Phone Magen King MD Primary Care Provider + Encounter Details Date Type Department Care Team (Late st Contact Info) Description 07/26/2022 Lab Requisition [facility] Pathology Lab [address] [place] [address] Terry Ordoñez MD [facility] [address] [address] Disorder of white blood cells, unspecified Social History Tobacco Use Types Packs/Day Years Used Date Smoking Tobacco: Never Assessed Sex and Gender Information Value Date Recorded Sex Assigned at Not on file Gender Identity Not on file Sexual Orientation Not on file documented as of this encounter Plan of Treatment Not on file documented as of this encounter Procedures Procedure Name Priority Date/Time Associated Diagnosis Comments FLOW CYTOMETRY BONE MARROW Routine 07/26/2022 10:24 AM MATERIAL HANDLER 1ST SHIFT Disorder of white blood cells, unspecified documented in this encounter Results * FLOW CYTOMETRY BONE MARROW (07/26/2022 10:24 AM MATERIAL HANDLER 1ST SHIFT) Case Report Flow Cytometry Case: [id number] Authorizing Provider: Terry Ordoñez MD Collected: 07/26/2022 10:24 AM Ordering Location: [facility] Care Pathology Lab Received: 07/26/2022 02:39 PM Pathologist: Vale Tovar MD Specimen: Bone Marrow 07/26/2022 6:49 PM MATERIAL HANDLER 1ST SHIFT [facility] PATHOLOGY LAB Final Diagnosis Bone marrow, flow cytometric immunophenotypic analysis: - Plasma cell dyscrasia - No evidence of non-Hodgkin lymphoma or high-grade myeloid neoplasm - See interpretation 07/26/2022 6:49 PM [facility] PATHOLOGY LAB Flow Cytometry Interpretation The bone marrow specimen has a viability of 95%. Within the lymphocyte gate, there is no monoclonal B-cell population identified (kappa:lambda ratio = 1.9:1). There is no expanded T-cell population seen. 2.6% of all events analyzed are myeloblasts. There is a monoclonal plasma cell population identified that expresses CD38 (bright), CD138, CD19 (partial), CD117 (partial), and cytoplasmic lambda light chains. These cells lack significant expression of CD56, CD10, and CD20. This population comprises 1.3% of all events. A bone marrow aspirate smear prepared from the flow cytometry specimen is reviewed for quality audit representative purposes. The bone marrow specimen shows evidence of involvement by a plasma cell dyscrasia. There is no evidence of non-Hodgkin lymphoma or a high-grade myeloid neoplasm. Correlation with clinical findings and the concurrent bone marrow biopsy is required for further classification. 07/26/2022 6:49 PM [facility] PATHOLOGY LAB Flow Cytometry Results Differential Result Comment Flow Cell Count /uL 19,800 Total Viability % 95.0 Lymphocytes % 18 Dim CD45 Region % 10 Monocytes % 11 Granulocytes % 62 07/26/2022 6:49 PM [facility] PATHOLOGY LAB Reason for test Disorder of white blood cells, unspecified 07/26/2022 6:49 PM [facility] PATHOLOGY LAB Client Specimen ID # [id number] 07/26/2022 6:49 PM [facility] PATHOLOGY LAB Number of markers 14 were performed. A-2 Flow CD10 A-3 Flow CD13 A-5 Flow CD20 A-13 Flow CD117 A-14 FLOW CD138 A-1 Flow CD5 A-4 Flow CD19 A-6 Flow CD33 A-7 Flow CD34 A-8 Flow CD45 A-11 Flow CD38 A-12 Flow CD56 A-9 Carrabelle+CD19+ A-10 Lambda+CD19+ 07/26/2022 6:49 PM [facility] PATHOLOGY LAB Disclaimer Test performed at [facility], [address] [place] [address], [id number]. *The established laboratory minimum viability is 70%. Values below the minimum may result in the failure to find an abnormal population of cells. This test was developed and its performance characteristics determined by the Flow Cytometry Laboratory. It has not been cleared by the [place] Food and Drug Administration (FDA). The FDA has determined that such clearance or approval is not necessary. This test is used for clinical purposes. It should not be regarded as investigational or for research. This laboratory is regulated under the Clinical Laboratory Improvement Amendments of 1998 (CLIA) as a qualified to perform high complexity clinical testing. 07/26/2022 6:49 PM MATERIAL HANDLER [address] [facility] PATHOLOGY LAB Embedded Images 6:49 PM MATERIAL HANDLER [address] [facility] PATHOLOGY LAB Pathology/Cytolo gy BONE MARROW SPECIMEN / Unknown 07/26/2022 10:24 AM MATERIAL HANDLER 1ST SHIFT 07/26/2022 2:39 PM MATERIAL HANDLER 1ST SHIFT Terry Ordoñez MD LAB - PATHOLOGY/CYTO LOGY ORDERABLES Performing Organization Address City/State/[facility] Co de Phone Number [facility] PATHOLOGY LAB [address] [phone] documented in this encounter Visit Diagnoses Diagnosis Disorder of white blood cells, unspecified documented in this encounter Care Teams Global Head [employer] Relationship Specialty Start Date End Date Magen King MD [address] [address] PCP - General 06/14/21 documented as of this encounter
--- OUTSIDE RECORDS SUMMARY | 2024-10-13 12:49 | XMS_ITS | Clinical Summary ---
Author Organization [facility] Address [address] [place] [address] Care Team Providers Care Mold Carrier Name Role Phone Magen King MD Primary Care Provider + Source Comments [facility],non-owned Affiliates and Associated Physician Practices is amultiple site organization consisting of ambulatory clinics and hospital sitesin [place], [place], [place] and [place]. This disclosure is being madepursuant to the Care Everywhere program and may not contain all information available regarding this patient. Last updated 18.[facility] Social History Tobacco Use Types Packs/Day Years Used Date Smoking Tobacco: Never Assessed Sex and Gender Information Value Date Recorded Sex Assigned at Not on file Gender Identity Not on file Sexual Orientation Not on file Plan of Treatment Health Maintenance Due Date Last Done Comments MEDICARE AWV 12 MONTHS 1945 DTAP/TDAP/TD VACCINES (1 - Tdap) 1964 PNEUMOCOCCAL VACCINE 50+ (1 of 1 - PCV) 1995 ZOSTER VACCINE (1 of 2) 1995 Respiratory Syncytial Virus (RSV) Vaccine Pt: or over 60 yrs (1 - 1-dose 75+ series) 2020 COVID-19 VACCINE ( - 2023-2 5 season) 2024 INFLUENZA VACCINE (#1) 2024 DEPRESSION SCREENING 07/08/2024 HEPATITIS B VACCINE Aged Out No longe r eligible based on patient's age to complete this topic HIB VACCINE Aged Out No longer eligi ble based on patient's age to complete this topic HPV VACCINE Aged Out No longer eligi ble based on patient's age to complete this topic MENINGOCOCCAL (Group B) VACC INE SHARED DECISION-MAKING Aged Out No longer eligibl e based on patient's age to complete this topic MENINGOCOCCAL GROUPS A/C/Y/W VACCINE Aged Out No longer eligible b ased on patient's age to complete this topic Care Teams Mold Carrier Relationship Specialty Start Date End Date Magen King MD [address] [address] PCP - General 06/14/21
--- OUTSIDE RECORDS SUMMARY | 2024-10-13 12:49 | XMS_ITS | Encounter Summary ---
Author Organization [facility] Address [address] [place] [address] Care Team Providers Care Director Experimental Medicine Name Role Phone Magen King MD Primary Care Provider + Encounter Details Date Type Department Care Team (Late st Contact Info) Description 07/30/2022 Lab Requisition [facility] Care Pathology Lab [address] [place] [address] Terry Ordoñez MD [facility] [address] [address] Illness, unspecified Social History Tobacco Use Types Packs/Day Years Used Date Smoking Tobacco: Never Assessed Sex and Gender Information Value Date Recorded Sex Assigned at Not on file Gender Identity Not on file Sexual Orientation Not on file documented as of this encounter Plan of Treatment Not on file documented as of this encounter Procedures Procedure Name Priority Date/Time Associated Diagnosis Comments BONE MARROW BIOPSY (STL) Routine 07/26/2022 10:24 AM MICROFILM TECHNICIAN Illness, unspecified documented in this encounter Results * BONE MARROW BIOPSY (STL) (07/26/2022 10:24 AM MICROFILM TECHNICIAN) Case Report Bone Marrow Patholog y Report Case: [id number] Authorizing Provider: Terry Ordoñez MD Collected: 07/26/2022 10:24 AM Ordering Location: [facility] Care Pathology Lab Received: 07/30/2022 07:56 AM Pathologist: Mal Jack MD Specimens: A) - Bone Marrow Clot B) - Bone Marrow Core 07/30/2022 3:45 PM MICROFILM TECHNICIAN [facility] PATHOLOG[facility] LAB Final Diagnosis Bone marrow, aspirate, clot section, and core biopsy: - Hypercellular marrow with megakaryocytic hyperplasia with atypia and mild involvement by plasma cell neoplasm (~5-7% of marrow cellularity). - See description. Peripheral blood smear: - Pancytopenia. - See description. 07/30/2022 3:45 PM [facility] PATHOLOGY LAB Comment Immunohistochemistry is performed to assess staining cells in an architectural context: CD138 highlights increased plasma cells comprising 5-7% of the marrow cellularity. CD34 is negative for increased blasts (~3% of marrow cellularity). Pancytokeratin is negative for metastatic disease. Overall findings are those of low-level involvement by a plasma cell neoplasm, possibly monoclonal gammopathy of uncertain significance (correlation with clinical symptoms is recommended). Furthermore, the hypercellularity and megakaryocytic hyperplasia with atypica may indicate a concurrent myelodysplastic syndrome. However, these morphologic findings are not diagnostic and correlation with MDS-related genetic abnormalities (if ordered) is recommended. Dyspoiesis is a morphologic change that can be due to myelotoxic / myelosuppressive drugs, nutritional deficiency, chronic viral infection, severe or sustained inflammatory conditions, or primary myelodysplastic syndrome (MDS). Diagnosis of MDS may be considered if all secondary causes are excluded and a MDS-related genetic abnormality is identified.. 07/30/2022 3:45 PM [facility] PATHOLOGY LAB Peripheral Smear Description RBC: macrocytic anemia. WBC: decreased in number, few atypically lobated neutrophils. Platelets: slightly decreased in number. 07/30/2022 3:45 PM [facility] PATHOLOG[facility] LAB Bone Marrow Aspirate Differential count (200 cells): 0% blasts, 41% maturing myeloid precursors, 20% erythroid progenitors, 2% monocytes, 7% eosinophils, 22% lymphocytes, 8% plasma cells (some with nucleolation). Specimen quality: adequate. Spicules: few. Trilineage Hematopoiesis: present. Myeloid:Erythroid ratio: normal. Myeloid Maturation: normal. Erythroid Maturation: normal. Megakaryocyte morphology: hypolobate. Storage iron (by special stain): absent. Sideroblastic iron (by special stain): no ring sideroblasts. 07/30/2022 3:45 PM [facility] PATHOLOG[facility] LAB Bone Marrow Core Biopsy and Clot Section Description Specimen quality: adequate with 2.5 cm of evaluable marrow. Cellularity: 70% Trilineage Hematopoiesis: present. Myeloid to Erythroid ratio: normal. Myeloid maturation and localization: normal. Erythroid maturation and localization: architectural disarray. Megakaryocyte number: increased. Megakaryocyte distribution: small, hypolobated, and few forms with nuclear lobe separation. Lymphoid aggregates: absent. Bone trabeculae: thin. Blood vessels: mildly thickened. Plasma cells: increased and cytologically abnormal. Clot section marrow particles: few. Clot section morphology: similar to core biopsy. 07/30/2022 3:45 PM [facility] PATH[facility] LAB Flow Cytometry Summary Bone marrow, flow cytometric immunophenotypic analysis ([id number]): - Plasma cell dyscrasia - No evidence of non-Hodgkin lymphoma or high-grade myeloid neoplasm - See interpretation 07/30/2022 3:45 PM [facility] PATH[facility] Clinical History Colon cancer and persistent pancytopenia. 07/30/2022 3:45 PM [facility] PATH[facility] LAB Materials Received Received are 20 slides and three blocks (A1, A2, B1) labeled [id number] along with a copy of the outside pathology report. [place] [address]. All original materials are returned to the referring institution, along with a copy of our final report. 07/30/2022 3:45 PM [facility] PATH[facility] LAB Disclaimer The performance characteristics of all immunohistochemical and indirect immunofluorescence stains (if any) cited in this report were determined by the Histopathology Laboratory of [facility]. Some of these tests were developed by our own laboratory and have not been cleared or approved by the [place] Food and Drug Administration. The FDA does not require this test to go through premarket FDA review. These tests are used for clinical purposes. They should not be regarded as investigational or for research. This laboratory is certified under the Clinical Laboratory Improvement Amendments (CLIA) as qualified to perform high complexity clinical laboratory testing. This case has been personally reviewed and interpreted by the attending (teaching) pathologist. 07/30/2022 3:45 PM [facility] PATHOLOG[facility] LAB Embedded Images 07/30/2022 3:45 PM [facility] PATHOLOGY LAB Pathology/Cytology BONE MARROW SPECIMEN / Unknown 07/26/2022 10:24 AM MICROFILM TECHNICIAN 07/30/2022 7:56 AM MICROFILM TECHNICIAN Miscellaneous samples (specimen) BONE MARROW SPECIMEN / Unknown 07/26/2022 10:24 AM MICROFILM TECHNICIAN 07/30/2022 7:56 AM MICROFILM TECHNICIAN Terry Ordoñez MD LAB - PATHOLOGY/CYTO LOGY ORDERABLES [facility] PATHOLOGY LAB [address] [phone] documented in this encounter Visit Diagnoses Diagnosis Illness, unspecified documented in this encounter Care Teams Director Experimental Medicine Relationship Specialty Start Date End Date Magen King MD [address] [address] PCP - General 06/14/21 documented as of this encounter
--- OUTSIDE RECORDS SUMMARY | 2024-10-13 12:49 | XMS_ITS | Clinical Summary ---
Author Organization [facility] Address formerly [facility] [place] [address] Care Team Providers Care Surgery Nurse Name Role Phone Unavailable Primary Care Provider Unavailabl e Social History Tobacco Use Types Packs/Day Years Used Date Smoking Tobacco: Never Assessed Sex and Gender Information Value Date Recorded Sex Assigned at Not on file Legal Sex Male 5:22 PM CDT Gender Identity Not on file Sexual Orientation Not on file Plan of Treatment Health Maintenance Due Date Last Done Comments Hepatitis C 1963 DTaP, Tdap and Td Vaccines ( 1 - Tdap) 1964 Zoster Vaccines (1 of 2) 1995 Pneumococcal Vaccine: 65+ Ye ars (1 of 1 - PCV) 2010 RSV Immunization or 60+ Years (1 - 1-dose 75+ series) 2020 COVID-19 Vaccine ( - 2023-2 5 season) 2024 Meningococcal B Vaccine Aged Out No l onger eligible based on patient's age to complete this topic Meningococcal Vaccine Aged Out No lilli geovanna eligible based on patient's age to complete this topic RSV Immunizations Under 20 Months Aged Out No longer eligible based on patient's age to complete this topic
--- OUTSIDE RECORDS SUMMARY | 2024-10-13 12:49 | XMS_ITS | Clinical Summary ---
Author Organization [facility] Address [address] [place] [phone] Phone Care Team Providers Care Practice Support Specialist Name Role Phone Magen Gomez MD Primary Care Provider [phone] Allergies No known active allergies Medications Medication Sig Dispensed Refills Start Date End Date Status fenofibrate (TRIGLIDE) 160 MG tablet Take 160 mg by mouth 1 (one) time each day 01/20/2021 Active clopidogrel (PLAVIX) 75 MG tablet Take 75 mg by mouth 1 (one) time each day 01/20/2021 Active losartan (COZAAR) 100 MG tablet Take 100 mg by mouth 1 (one) time each day Active fish oil-omega-3 fatty acids 1000 MG capsule Take 2,000 mg by mouth 2 (two) times a day Active aspirin (ST AMBER) 81 MG EC tablet Take 81 mg by mouth daily Active Active Problems Problem Noted Date Diagnosed Date Malignant neoplasm of ascending colon 07/27/2021 Anemia of chronic renal failure 06/07/2021 Iron deficiency anemia 06/07/2021 Other dietary vitamin B12 deficiency anemia 12/0 07/2020 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 Carotid atherosclerosis 04/13/2021 Other and unspecified hyperlipidemia 04/13/2021 TIA 04/13/2021 Essential hypertension 04/13/2021 Chronic kidney disease, Stage IV (severe) 2020 Immunizations Name Administration Dates Next Due Influenza TIV (IM) 03/30/2021 Pneumococcal Conjugate 03/08/2020 Family History Medical History Relation Comments Kidney disease Neg Hx Social History Tobacco Use Types Packs/Day Years [...] Sign Reading Time Taken Comments Blood Pressure 128/74 03/29/2022 9:08 AM CDT Pulse 72 03/29/2022 9:08 AM CDT Temperature 37.3 C (99.1 F) 03/29/2022 9:08 AM CDT Respiratory Rate - - Oxygen Saturation - - Inhaled Oxygen Concentration - - Weight 81.6 kg (180 lb) 03/29/2022 9:08 AM CDT Height 180.3 cm (5' 11 ) 03/29/2022 9:08 AM CDT Body Mass Index 25.1 03/29/2022 9:08 AM CDT Plan of Treatment Health Maintenance Due Date Last Done Comments Pneumococcal PPSV23/PCV13 65 + Years / Low and Medium Risk (1 of 4 - PCV) 2010 Influenza Vaccine (Season Ended) 2025 03/30/20 21 Care Teams Practice Support Specialist Relationship Specialty Start Date End Date Magen Gomez MD [address] [phone] PCP - General Family Medicine 04/03/21
--- OUTSIDE RECORDS SUMMARY | 2024-10-13 12:49 | XMS_ITS | Clinical Summary ---
Author Organization [facility] Joo aguila Baljeet Address [address] [place] [address] Care Team Providers Care Bark Spudder Name Role Phone Magen King MD Primary Care Provider [phone] Allergies No known active allergies Medications clopidogreL (PLAVIX) 75 mg Tablet Take 75 mg by mouth. Active fenofibrate nanocrystallized (TRIGLIDE) 160 mg Tablet Take 160 mg by mouth daily. Active OMEGA-3 FATTY ACIDS-FISH OIL ORAL Take by mouth. Active aspirin (ECOTRIN EC) 81 mg Tablet, Delayed Release (E.C.) Take 81 mg by mouth daily. Active fenofibrate (LOFIBRA) 160 mg Tablet Take 160 mg by mouth daily at bedtime. 2 Active cyanocobalamin 1,000 mcg Tablet Take 1,000 mcg by mouth daily. Active ferrous sulfate 325 mg (65 mg iron) tablet Take 325 mg by mouth daily. Active ISOSORBIDE DINITRATE ORAL Take 150 mg by mouth daily. Active ASCORBIC ACID, VITAMIN C, ORAL Take by mouth. Active lidocaine-prilocaine (EMLA) 2.5-2.5 % Cream Apply a quarter size amount to port site 30 minutes before access. 30 Gram 1 4 Active ondansetron (ZOFRAN ODT) 8 mg Tablet, Rapid Dissolve Dissolve 1 tablet on top of tongue then swallow with saliva every 8 hours as needed for nausea or vomiting 30 Tablet 1 4 Active Active Problems Problem Noted Date Diagnosed Date Malignant neoplasm of ascending colon 07/27/2021 Anemia of chronic renal failure, stage 3 (modera te) 06/07/2021 Other dietary vitamin B12 deficiency anemia 12/07/2020 Iron deficiency anemia 06/07/2021 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 Encounters Date Type Department Care Team Description 10/12/2024 Orders Only [facility] - [place] [address] [place] [id number] Nehemias Yang MD Anemia of chronic renal failure, stage 3b (CMS/HCC) 09/28/2024 Orders Only [facility] - [place] [address] [place] [id number] Nehemias Yang MD Anemia of chronic renal failure, stage 3b (CMS/HCC) 09/25/2024 10:00 AM CDT Office Visit [facility] - [place] [address] [place] [address] Nehemias Yang MD Anemia of chronic renal failure, stage 3b (CMS/HCC) (Primary Dx) 09/23/2024 External Device Data STL ABSTRACTION Provider, Abstract 09/23/2024 Orders Only [facility] - [place] [place] [address] Nehemias Yang MD 09/15/2024 Orders Only [facility] - [place] [address] [place] [address] Nehemias Yang MD 09/14/2024 Orders Only [facility] - [place] [address] [place] [address] Nehemias Yang MD Anemia of chronic renal failure, stage 3b (CMS/HCC) 09/12/2024 External Device Data STL ABSTRACTION Provider, Abstract 09/11/2024 External Device Data STL ABSTRACTION Provider, Abstract 09/09/2024 Orders Only [facility] - [place] [address] [place] [address] Nehemias Yang MD 09/09/2024 Abstract [facility] - [place] [address] [place] [address] Nehemias Yang MD 09/08/2024 External Device Data STL ABSTRACTION Provider, Abstract 08/31/2024 Orders Only [facility] - [place] [address] [place] [phone] Nehemias Yang MD Anemia of chronic renal failure, stage 3b (CMS/HCC) 08/28/2024 9:30 AM ZINC MINER BLASTING Office Visit [facility] - [place] [address] [place] [phone] Nehemias Yang MD MDS (myelodysplastic syndrome) (CMS/HCC) (Primary Dx) 08/26/2024 Orders Only [facility] - [place] [address] Nehemias Yang MD 08/17/2024 Orders Only [facility] - [place] [address] [place] [id number] Nehemias Yang MD Anemia of chronic renal failure, stage 3b (CMS/HCC) 08/05/2024 Orders Only [facility] - [place] [address] [place] [id number] Nehemias Yang MD 08/03/2024 Orders Only [facility] - [place] [address] [place] [id number] Nehemias Yang MD Anemia of chronic renal failure, stage 3b (CMS/HCC) 07/29/2024 8:30 AM ZINC MINER BLASTING Office Visit [facility] - [place] [address] [place] [id number] Nehemias Yang MD MDS (myelodysplastic syndrome) (CMS/HCC) (Primary Dx) 07/28/2024 Orders Only [facility] - [place] [address] [place] [id number] Nehemias Yang MD 07/17/2024 Orders Only [facility] - [place] [address] [place] [address] Nehemias Yang MD 07/17/2024 Abstract [facility] - [place] [address] [place] [address] Nehemias Yang MD from Last 3 Months Social History Tobacco Use Types Packs/Day Years Used Date Smoking Tobacco: Former Smokeless Tobacco: Never Tobacco Cessation:Counseling Given: Not Answered Alcohol Use Standard Drinks/Week Comments Not Currently 0 (1 standard drink = 0.6 oz pur e alcohol) Sex and Gender Information Value Date Recorded Sex Assigned at Not on file Legal Sex Male 2:58 PM CDT Gender Identity Not on file Sexual Orientation Not on file Last Filed Vital Signs Vital Sign Reading Time Taken Comments Blood Pressure 121/60 09/25/2024 9:37 AM CDT Pulse 80 09/25/2024 9:37 AM CDT Temperature 36.2 C (97.1 F) 09/25/2024 9:37 AM CDT Respiratory Rate 15 09/25/2024 9:37 AM CDT Oxygen Saturation 95% 09/25/2024 9:37 AM CDT Inhaled Oxygen Concentration - - Weight 81.1 kg (178 lb 12.8 oz) 09/25/2024 9:37 AM CDT Height 180.3 cm (5' 11 ) 03/02/2022 2:02 PM CDT Body Mass Index 24.94 03/02/2022 2:02 PM CDT Plan of Treatment Upcoming Encounters Date Type Department Care Team (Late st Contact Info) Description 11/16/2024 9:45 AM CDT Office Visit [facility] H[facility] - [place] [address] [place] [address] Nehemias Yang MD [address] [facility] [employer] [address] [place] [address] Health Maintenance Due Date Last Done Comments DTAP/TDAP/TD VACCINES (1 - Tdap) 1964 PNEUMOCOCCAL VACCINE 50+ YEA RS (1 of 2 - PCV) 1964 03/08/2020 Traditional Medicare (ACO) A nnual Wellness Visit 1964 ZOSTER VACCINE (1 of 2) 1964 RSV VACCINE (60+ or ) (1 - 1-dose 75+ series) 2020 INFLUENZA VACCINE (#1) 2024 03/30/2021 COLORECTAL SCREENING Discontinued 12/06/2022, 12/07/19 Colorectal Cancer Screening Discontinued FIT-DNA Q 3 years Discontinued FIT/FOBT Q 1 year Discontinued Flex Sig/CT Colonography Q 5 years Discontinued Procedures Procedure Name Priority Date/Time Associated Diagnosis Comments BASIC METABOLIC PANEL Routine 09/21/2024 3:32 PM CDT CBC WITH DIFFERENTIAL Routine 09/21/2024 3:31 PM CDT CBC WITH AUTODIFFERENTIAL Routine 2024 2:50 PM CDT CBC WITH DIFFERENTIAL Routine 09/01/2024 1:38 PM ZINC MINER BLASTING BASIC METABOLIC PANEL Routine 08/24/2024 7:57 AM ZINC MINER BLASTING CBC WITH DIFFERENTIAL Routine 08/04/2024 7:44 AM ZINC MINER BLASTING COMPREHENSIVE METABOLIC PANEL Routine 07/27/2024 2:42 PM ZINC MINER BLASTING from Last 3 Months Results * BASIC METABOLIC PANEL (09/21/2024 3:32 PM CDT) Only the most recent of2 resultswithin the time period is included. Blood us Nehemias Yang MD CHEMISTRY ORDERABLES Final Resu lt * CBC WITH DIFFERENTIAL (09/21/2024 3:31 PM CDT) Only the most recent of3 resultswithin the time period is included. Blood us Nehemias Yang MD HEMATOLOGY ORDERABLES Final Res ult * CBC WITH AUTODIFFERENTIAL (09/15/2024 2:50 PM CDT) Blood us Nehemias Yang MD HEMATOLOGY ORDERABLES Final Res ult * COMPREHENSIVE METABOLIC PANEL (07/27/2024 2:42 PM ZINC MINER BLASTING) Blood Nehemias Yang MD CHEMISTRY ORDERABLES Final Resu lt from Last 3 Months Insurance MEDICARE PART A AND B Care Teams Bark Spudder Relationship Specialty Start Date End Date Magen King MD PCP - General Family Practice 05/23/21
== END 2024-10-13 11:15 | disposition home or self-care (01) ==
LOC: ANHLAB 11:18
PROVIDERS: PCP Family Medicine Adolescent Medicine; Referring Provider Internal Medicine Nephrology; Visit Provider Internal Medicine Hematology & Oncology
DX: N18.32 Chronic kidney disease, stage 3b (principal)
CPT/HCPCS: 36415; 80069; 82570; 83970; 84156

== ENCOUNTER 2025-01-19 08:23 | Outpatient (CLI) | payer MEDICARE, OTHER, SELFPAY ==
--- OUTSIDE RECORDS SUMMARY | 2025-01-19 08:32 | XMS_ITS | Encounter Summary ---
Author Organization [facility] Address [address] [place] [address] Care Team Providers Care Android Framework Developer Name Role Phone Magen King MD Primary Care Provider + Encounter Details Date Type Department Care Team (Late st Contact Info) Description 07/30/[address] [facility] [address] [place] [address] Terry Ordoñez MD [facility] [address] [address] Illness, unspecified Social History Tobacco Use Types Packs/Day Years Used Date Smoking Tobacco: Never Assessed Sex and Gender Information Value Date Recorded Sex Assigned at Not on file Legal Sex Male 8:54 AM BUTCHER MEAT Gender Identity Not on file Sexual Orientation Not on file documented as of this encounter Plan of Treatment Not on file documented as of this encounter Procedures Procedure Name Priority Date/Time Associated Diagnosis Comments BONE MARROW BIOPSY (STL) Routine 07/26/2022 10:24 AM BUTCHER MEAT Illness, unspecified documented in this encounter Results * BONE MARROW BIOPSY (STL) (07/26/2022 10:24 AM BUTCHER MEAT) Case Report Bone Marrow Patholog y Report Case: [id number] Authorizing Provider: Terry Ordoñez MD Collected: 07/26/2022 10:24 AM Ordering Location: 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 - See description. Peripheral blood smear: - Pancytopenia. - See description. 07/30/2022 3:45 PM [facility] at [address] AP Comment Immunohistochemistry is performed to assess staining [...] genetic abnormality is identified.. 07/30/2022 3:45 PM [facility] Peripheral Smear Description RBC: macrocytic anemia. WBC: decreased in number, few atypically lobated neutrophils. Platelets: slightly decreased in number. 07/30/2022 3:45 PM [facility] Bone Marrow Aspirate Differential count [...] stain): no ring sideroblasts. 07/30/2022 3:45 PM [facility] Bone Marrow Core Biopsy and [...] similar to core biopsy. 07/30/2022 3:45 PM [facility] Flow Cytometry Summary Bone marrow, flow cytometric immunophenotypic analysis ([id number]): - Plasma cell dyscrasia - No evidence of non-Hodgkin lymphoma or high-grade myeloid neoplasm - See interpretation 07/30/2022 3:45 PM [facility] Clinical History Colon cancer and persistent pancytopenia. 07/30/2022 3:45 PM [facility] Materials Received Received are 20 slides and three blocks (A1, A2, B1) labeled [id number] along with a copy of the outside pathology report. [place] [address]. All original materials are returned to the referring institution, along with a copy of our final report. 07/30/2022 3:45 PM [facility] Disclaimer The performance characteristics of all immunohistochemical and indirect immunofluorescence stains (if any) cited in this report were determined by the Histopathology Laboratory of [facility]. Some of these tests were developed [...] the attending (teaching) pathologist. 07/30/2022 3:45 PM [facility] Embedded Images 07/30/2022 3:45 PM [facility] Pathology/Cytology BONE MARROW SPECIMEN / Unknown 07/26/2022 10:24 AM BUTCHER MEAT 07/30/2022 7:56 AM BUTCHER MEAT Miscellaneous samples (specimen) BONE MARROW SPECIMEN / Unknown 07/26/2022 10:24 AM BUTCHER MEAT 07/30/2022 7:56 AM BUTCHER MEAT Terry Ordoñez MD LAB - PATHOLOGY/CYTOLOGY ORDERAB LES Final Result Performing Organization Address City/State/[facility] Co de Phone Number [facility] [address] [phone] documented in this encounter Visit Diagnoses Diagnosis Illness, unspecified documented in this encounter Care Teams Android Framework Developer Relationship Specialty Start Date End Date Magen King MD [address] [place] [id number] PCP - General 06/14/21 documented as of this encounter
--- OUTSIDE RECORDS SUMMARY | 2025-01-19 08:32 | XMS_ITS | Clinical Summary ---
Author Organization [facility] Address [address] [place] [address] Care Team Providers Care Chenille Machine Operator Name Role Phone Magen King MD Primary Care Provider + Source Comments [facility],non-owned Affiliates and Associated Physician Practices is amultiple site organization consisting of ambulatory clinics and hospital sitesin [place], [place], [place] and [place]. This disclosure is being madepursuant to the Care Everywhere program and may not contain all information available regarding this patient. Last updated 18.[facility] Social History Tobacco Use Types Packs/Day Years Used Date Smoking Tobacco: Never Assessed Sex and Gender Information Value Date Recorded Sex Assigned at Not on file Legal Sex Male 8:54 AM KITCHENHAND Gender Identity Not on file Sexual Orientation [...] VACCINE ( - 2023-2 5 season) 2024 DEPRESSION SCREENING 07/08/2024 INFLUENZA VACCINE (#1) 2025 HEPATITIS B VACCINE Aged Out No longe [...] on patient's age to complete this topic Insurance MEDICARE [employer] [facility] MEDICARE Care Teams Chenille Machine Operator Relationship Specialty Start Date End Date Magen King MD [address] [place] [id number] PCP - General 06/14/21
--- OUTSIDE RECORDS SUMMARY | 2025-01-19 08:32 | XMS_ITS | Encounter Summary ---
Author Organization [facility] Address [address] [facility] [place] [address] Care Team Providers Care Soil Conservation Technician Name Role Phone Magen King MD Primary Care Provider + Encounter Details Date Type Department Care Team (Late st Contact Info) Description 07/26/2022 Lab Requisition [facility] [address] [place] [address] Terry Ordoñez MD [facility] [address] [address] Disorder of white blood cells, unspecified Social History Tobacco Use Types Packs/Day Years Used Date Smoking Tobacco: Never Assessed Sex and Gender Information Value Date Recorded Sex Assigned at Not on file Legal Sex Male 8:54 AM LUNCHROOM OPERATOR Gender Identity Not on file Sexual Orientation Not on file documented as of this encounter Plan of Treatment Not on file documented as of this encounter Procedures Procedure Name Priority Date/Time Associated Diagnosis Comments FLOW CYTOMETRY BONE MARROW Routine 07/26/2022 10:24 AM LUNCHROOM OPERATOR Disorder of white blood cells, unspecified documented in this encounter Results * FLOW CYTOMETRY BONE MARROW (07/26/2022 10:24 AM LUNCHROOM OPERATOR) Case Report Flow Cytometry Case: [id number] Authorizing Provider: Terry Ordoñez MD Collected: 07/26/2022 10:24 AM Ordering Location: [facility] Received: 07/26/2022 02:39 PM Pathologist: Vale Tovar MD Specimen: Bone Marrow 07/26/2022 6:49 PM LUNCHROOM OPERATOR [facility] Final Diagnosis Bone marrow, flow cytometric immunophenotypic analysis: - Plasma cell dyscrasia - No evidence of non-Hodgkin lymphoma or high-grade myeloid neoplasm - See interpretation 07/26/2022 6:49 PM [facility] at [address] [facility] Flow Cytometry Interpretation The bone marrow specimen [...] flow cytometry specimen is reviewed for quality improvement analyst purposes. The bone marrow specimen shows evidence of involvement by a plasma cell dyscrasia. There is no evidence of non-Hodgkin lymphoma or a high-grade myeloid neoplasm. Correlation with clinical findings and the concurrent bone marrow biopsy is required for further classification. 07/26/2022 6:49 PM [facility] Flow Cytometry Results Differential Result Comment Flow Cell Count /uL 19,800 Total Viability % 95.0 Lymphocytes % 18 Dim CD45 Region % 10 Monocytes % 11 Granulocytes % 62 07/26/2022 6:49 PM [facility] Reason for test Disorder of white blood cells, unspecified 07/26/2022 6:49 PM [facility] Client Specimen ID # [id number] 07/26/2022 6:49 PM [facility] Number of markers 14 were performed. A-2 Flow CD10 A-3 Flow CD13 A-5 Flow CD20 A-13 Flow CD117 A-14 FLOW CD138 A-1 Flow CD5 A-4 Flow CD19 A-6 Flow CD33 A-7 Flow CD34 A-8 Flow CD45 A-11 Flow CD38 A-12 Flow CD56 A-9 Hendron+CD19+ A-10 Lambda+CD19+ 07/26/2022 6:49 PM [facility] Disclaimer Test performed at [facility], [address] [place] [address], [address]. *The established laboratory minimum viability is 70%. [...] high complexity clinical testing. 07/26/2022 6:49 PM LUNCHROOM OPERATOR [facility] Embedded Images 6:49 PM LUNCHROOM OPERATOR [facility] Pathology/Cytolo gy BONE MARROW SPECIMEN / Unknown 07/26/2022 10:24 AM LUNCHROOM OPERATOR 07/26/2022 2:39 PM LUNCHROOM OPERATOR Trery Ordoñez MD LAB - PATHOLOGY/CYTOLOGY ORDERAB LES Final Result Performing Organization Address City/State/[facility] Co de Phone Number [facility] [address] [phone] documented in this encounter Visit Diagnoses Diagnosis Disorder of white blood cells, unspecified documented in this encounter Care Teams Soil Conservation Technician Relationship Specialty Start Date End Date Magen King MD [address] [address] PCP - General 06/14/21 documented as of this encounter
--- OUTSIDE RECORDS SUMMARY | 2025-01-19 08:33 | XMS_ITS | Clinical Summary ---
Author Organization [facility] Joo aguila Roshanlashaysoumya Address [address] [place] [address] Care Team Providers Care Sterile Processing Manager Name Role Phone Magen King MD Primary Care Provider +1- [phone] Allergies No known active allergies Medications clopidogreL [...] Encounters Date Type Department Care Team Description 01/18/2025 Orders Only [facility] Oncology and Hematology - Cassius Lila Pendleton [address] Nehemias Yang MD Anemia of chronic renal failure, stage 3b (CMS/HCC) 01/13/2025 8:45 AM CDT Office Visit [facility] Oncology and Hematology - Cassius Lila Pendleton [address] Nehemias Yang MD MDS (myelodysplastic syndrome) (CMS/HCC) (Primary Dx) 01/11/2025 Orders Only [facility] Oncology and Hematology - Cassius Lila Pendleton [address] [place] [phone] Nehemias Yang MD Anemia of chronic renal failure, stage 3b (CMS/HCC) 01/06/2025 Orders Only [facility] Oncology and Hematology - Cassius Lila [address] [place] [phone] Nehemias Yang MD 01/04/2025 Orders Only [facility] Oncology and Hematology - Cassius [address] [place] [phone] Nehemias Yang MD Anemia of chronic renal failure, stage 3b (CMS/HCC) 12/28/2024 Orders Only [facility] Oncology and Hematology - Cassius Lila [address]endleton [address] [place] [phone] Nehemias Yang MD Anemia of chronic renal failure, stage 3b (CMS/HCC) 12/23/2024 Orders Only [facility] Oncology and Hematology - Cassius Lila [address] [place] [phone] Scanning, Provider 12/21/2024 [facility] Oncology and Hematology - Cassius [address] [place] [phone] Nehemias Yang MD Anemia of chronic renal failure, stage 3b (CMS/HCC) 12/14/2024 10:15 AM CDT Office Visit [facility] Oncology and Hematology - [address]ius [address] [place] [address] Nehemias Yang MD Plasma cell disorder (Primary Dx); Anemia of chronic renal failure, stage 3b (CMS/HCC) 12/14/2024 Orders Only [facility] Oncology and Hematology - Cassius [address] [place] [phone] Nehemias Yang MD 12/09/2024 Orders Only [facility] Oncology and Hematology - Cassius [address] [place] [address] Nehemias Yang MD 12/07/2024 Orders Only [facility] Oncology and Hematology - Cassius [address] [place] [address] Nehemias Yang MD Anemia of chronic renal failure, stage 3b (CMS/HCC) 11/30/2024 Orders Only [facility] Oncology and Hematology - Cassius [address] [place] [address] Nehemias Yang MD Anemia of chronic renal failure, stage 3b (CMS/HCC) 11/26/2024 External Device Data STL ABSTRACTION Provider, Abstract 11/26/2024 External Device Data STL ABSTRACTION Provider, Abstract 11/25/2024 External Device Data STL ABSTRACTION Provider, Abstract 11/24/2024 External Device Data STL ABSTRACTION Provider, Abstract 11/23/2024 Orders Only [facility] Oncology and Hematology - Cassius [address] [place] [address] Nehemias Yang MD Anemia of chronic renal failure, stage 3b (CMS/HCC) 11/17/2024 Orders Only [facility] Oncology and Hematology - Cassius [address] [place] [address] Nehemias Yang MD 11/16/2024 9:45 AM CDT Office Visit [facility] Oncology and Hematology - Cassius [address] [place] [phone] Nehemias Yang MD Anemia of chronic renal failure, stage 3b (CMS/HCC) 11/10/2024 Orders Only [facility] Oncology and Hematology - Cassius [address] [place] [phone] Nehemias Yang MD Anemia of chronic renal failure, stage 3b (CMS/HCC) (Primary Dx) 11/10/2024 Orders Only [facility] Oncology and Hematology - Cassius [address] Nehemias Yang MD Anemia of chronic renal failure, stage 3b (CMS/HCC) (Primary Dx) 11/02/2024 Orders Only [facility] Oncology and Hematology - Cassius [address] Nehemias Yang MD Anemia of chronic renal failure, stage 3b (CMS/HCC) 10/20/2024 External Device Data STL ABSTRACTION Provider, Abstract 10/20/2024 Orders Only [facility] Oncology and Hematology - Cassius [address] [place] [id number] Nehemias Yang MD from Last 3 Months [...] Sign Reading Time Taken Comments Blood Pressure 132/68 01/13/2025 8:43 AM CDT Pulse 72 01/13/2025 8:43 AM CDT Temperature 36.7 C (98 F) 01/13/2025 8:43 AM CDT Respiratory Rate 15 01/13/2025 8:43 AM CDT Oxygen Saturation 96% 01/13/2025 8:43 AM CDT Inhaled Oxygen Concentration - - Weight 81.3 kg (179 lb 3.2 oz) 01/13/2025 8:43 A M CDT Height 180.3 cm (5' 11) 03/02/2022 2:02 PM CDT Body Mass Index 24.99 03/02/2022 2:02 PM CDT Plan of Treatment Upcoming Encounters Date Type Department Care Team (Late st Contact Info) Description 02/16/2025 9:45 AM CDT Office Visit [facility] Oncology and Hematology - Cassius [address] [facility] [address] [place] [address] Nehemias Yang MD [address] [facility] [address] [place] [address] Health Maintenance Due Date Last Done Comments DTAP/TDAP/TD VACCINES (1 - Tdap) 1964 PNEUMOCOCCAL VACCINE 50+ YEA RS (1 of 2 - PCV) 1964 03/08/2020 Traditional Medicare (ACO) A nnual Wellness Visit 1964 ZOSTER VACCINE (1 of 2) 1964 RSV VACCINE (60+ or ) (1 - 1-dose 75+ series) 2020 INFLUENZA VACCINE (#1) 2025 03/30/2021 COLORECTAL SCREENING Discontinued 12/06/2022, 12/07/19 Colorectal Cancer Screening Discontinued FIT-DNA Q 3 years Discontinued FIT/FOBT Q 1 year Discontinued Flex Sig/CT Colonography Q 5 years Discontinued Procedures Procedure Name Priority Date/Time Associated Diagnosis Comments IRON, TIBC, AND PERCENT SATURATION Routine 01/05/2025 7:52 AM CDT CBC WITH DIFFERENTIAL Routine 12/22/2024 2:36 PM CDT COMPREHENSIVE METABOLIC PANEL Routine 12/14/2024 3:03 PM CDT CBC WITH DIFFERENTIAL Routine 12/08/2024 10:24 AM CDT COMPREHENSIVE METABOLIC PANEL Routine 11/16/2024 3:29 PM CDT BASIC METABOLIC PANEL Routine 11/16/2024 1:17 PM CDT CBC WITH AUTODIFFERENTIAL Routine 2024 1:14 PM CDT CBC WITH AUTODIFFERENTIAL Routine 2024 2:25 PM CDT from Last 3 Months Results * IRON, TIBC, AND PERCENT SATURATION (01/05/2025 7:52 AM CDT) Blood Nehemias Yang MD CHEMISTRY ORDERABLES Final Resu lt * CBC WITH DIFFERENTIAL (12/22/2024 2:36 PM CDT) Only the most recent of2 resultswithin the time period is included. Blood Provider Scanning HEMATOLOGY ORDERABLES Final Re sult * COMPREHENSIVE METABOLIC PANEL (12/14/2024 3:03 PM CDT) Only the most recent of2 resultswithin the time period is included. Blood Nehemias Yang MD CHEMISTRY ORDERABLES Final Resu lt * BASIC METABOLIC PANEL (11/16/2024 1:17 PM CDT) Blood Nehemias Yang MD CHEMISTRY ORDERABLES Final Resu lt * CBC WITH AUTODIFFERENTIAL (11/16/2024 1:14 PM CDT) Only the most recent of2 resultswithin the time period is included. Blood Nehemias Yang MD HEMATOLOGY ORDERABLES Final Res ult from Last 3 Months Insurance MEDICARE PART A AND B [employer] PPO Care Teams Sterile Processing Manager Relationship Specialty Start Date End Date Magen King MD PCP - General Family Practice 05/23/21
--- OUTSIDE RECORDS SUMMARY | 2025-01-19 08:33 | XMS_ITS | Clinical Summary ---
Author Organization [facility] Address [address] [place] [address] Phone Care Team Providers Care Air And Water Tester Name Role Phone Magen Gomez MD Primary Care Provider +1- [phone] Allergies No known active allergies Medications fenofibrate (TRIGLIDE) 160 MG tablet Take 160 [...] kidney disease, Stage IV (severe) 2020 Immunizations Immunization Administration Dates Next Due Influenza TIV (IM) [...] at Not on file Legal Sex Male 10:39 AM MDT Gender Identity Not on file Sexual Orientation [...] 9:08 AM CDT Height 180.3 cm (5' 11) 03/29/2022 9:08 AM CDT Body Mass Index 25.1 03/29/2022 9:08 AM CDT Plan of Treatment Health Maintenance Due Date Last Done Comments Pneumococcal PPSV23/PCV13 65 + Years / Low and Medium Risk (1 of 2 - PCV) 1995 Influenza Vaccine (#1) 2025 03/30/2021 Insurance [employer] MEDICARE MEDICARE Care Teams Air And Water Tester Relationship Specialty Start Date End Date Magen Gomez MD [address] [address] PCP - General Family Medicine 04/03/21
--- OUTSIDE RECORDS SUMMARY | 2025-01-19 08:33 | XMS_ITS | Clinical Summary ---
Author Organization [facility] Address [facility] [place] [address] Care Team Providers Care Traffic Counter Name Role Phone Unavailable Primary Care Provider [...] Td Vaccines ( 1 - Tdap) 1964 Pneumococcal Vaccine: 50+ Ye ars (1 of 1 - PCV) 1995 Zoster Vaccines (1 of 2) 1995 RSV Immunization or 60+ Years (1 - [...]
--- OUTSIDE RECORDS SUMMARY | 2025-01-19 08:33 | XMS_ITS | Clinical Summary ---
Author Organization [facility] Address [address] [place] [address] Care Team Providers Care Senior Adults Director Name Role Phone Magen King MD Primary [...] on file Legal Sex Male 12:46 AM LINSEED CAKE TRIMMER Gender Identity Not on file Sexual Orientation [...] 4:27 AM CDT Height 180.3 cm (5' 11) 07/17/2013 9:00 AM LINSEED CAKE TRIMMER Body Mass Index 26.14 07/17/2013 9:00 AM LINSEED CAKE TRIMMER Plan of Treatment Health Maintenance Due Date [...] (Season Ended) 2025 08/01/19, 03/30/2021 [place] [address] [facility] Care Teams Senior Adults Director Relationship Specialty Start Date End Date Magen King MD [address] [place] [address] PCP - General Family Medicine 09/21/22
--- OUTSIDE RECORDS SUMMARY | 2025-01-19 08:33 | XMS_ITS | Referral Summary ---
Author Organization [facility] Address [address] [place] [address] Care Team Providers Care Collection Development Librarian Name Role Phone Magen King MD Primary [...] on file Legal Sex Male 12:46 AM OFFICER CAPTAIN Gender Identity Not on file Sexual Orientation [...] 180.3 cm (5' 11) 07/17/2013 9:00 AM OFFICER CAPTAIN Body Mass Index 26.14 07/17/2013 9:00 AM OFFICER CAPTAIN Plan of Treatment Not on file Insurance [facility] BENEFIT PLAN Member Subscriber Plan / Payer (Ef fective 2021-Present) Name:Natalio Damon Relation to Subscriber:Self Name:Natalio Damon Payer ID:[id number] Group ID:[id number] Type:CIGNA HMO/PPO Address: [place] MEDICARE [facility] BENEFIT PLAN Care Teams Collection Development Librarian Relationship Specialty Start Date End Date Magen King MD [address] [place] [address] PCP - General Family Medicine 09/21/22
--- OUTSIDE RECORDS SUMMARY | 2025-01-19 08:33 | XMS_ITS | Encounter Summary ---
Author Organization [facility] JOSH Vasquez [facility] Address [address] [place] [address] Care Team Providers Care Snuff Maker Name Role Phone Magen King MD Primary Care Provider +1- [phone] Encounter Details Date Type Department Care Team (Late Contact Info) Description 01/18/2025 Orders Only [facility] Oncology and Hematology [facility] [address] [place] [address] Nehemias Yang MD [facility] [employer] [address] [place] [address] Anemia of chronic renal failure, stage [...] Department Care Team (Late Contact Info) Description 02/16/2025 9:45 AM CDT Office Visit [facility] Oncology and Hematology - Cassius Zohra Pendleton [address] [place] [address] Nehemias Yang MD [facility] [employer] [address] [place] [address] documented as of this encounter Visit Diagnoses Diagnosis Anemia of chronic renal failure, stage 3b (CMS/HCC) documented in this encounter Care Teams Snuff Maker Relationship Specialty Start Date End Date Magen King MD PCP - General Family Practice 05/23/21 documented as of this encounter
[2025-01-19 10:35] LABS: Cholesterol 134 mg/dL (0-200); HDL Direct 39 mg/dL; Triglycerides 155 mg/dL (<150)
== END 2025-01-19 08:24 | disposition home or self-care (01) ==
LOC: ANHLAB 08:25
PROVIDERS: PCP Family Medicine Adolescent Medicine; Visit Provider Family Medicine Adolescent Medicine
DX: E78.1 Pure hyperglyceridemia (principal)
CPT/HCPCS: 36415; 80061

== ENCOUNTER 2025-04-12 08:22 | Outpatient (CLI) | payer MEDICARE, OTHER, SELFPAY ==
--- OUTSIDE RECORDS SUMMARY | 2025-04-12 08:43 | XMS_ITS | Encounter Summary ---
Author Organization [facility] Address [address] [place] [address] Care Team Providers Care Database Support Name Role Phone Magen King MD Primary Care Provider + Encounter Details Date Type Department Care Team (Late st Contact Info) Description 07/26/2022 Lab Requisition [facility] Pathology Lab [address] [place] [address] Terry Ordoñez MD [facility] [address] [address] Disorder of white blood cells, unspecified Social History Tobacco Use Types Packs/Day Years Used Date Smoking Tobacco: Never Assessed Sex and Gender Information Value Date Recorded Sex Assigned at Not on file Legal Sex Male 8:54 AM ALTERATION TAILOR APPRENTICE Gender Identity Not on file Sexual Orientation Not on file documented as of this encounter Plan of Treatment Not on file documented as of this encounter Procedures Procedure Name Priority Date/Time Associated Diagnosis Comments FLOW CYTOMETRY BONE MARROW Routine 07/26/2022 10:24 AM ALTERATION TAILOR APPRENTICE Disorder of white blood cells, unspecified documented in this encounter Results * FLOW CYTOMETRY BONE MARROW (07/26/2022 10:24 AM ALTERATION TAILOR APPRENTICE) Case Report Flow Cytometry Case: [id number] Authorizing Provider: Terry Ordoñez MD Collected: 07/26/2022 10:24 AM Ordering Location: [facility] Pathology Lab Received: 07/26/2022 02:39 PM Pathologist: Vale Tovar MD Specimen: Bone Marrow 07/26/2022 6:49 PM ALTERATION TAILOR APPRENTICE [facility] PATHOLOGY LAB Final Diagnosis Bone marrow, flow cytometric immunophenotypic analysis: - Plasma cell dyscrasia - No evidence of non-Hodgkin lymphoma or high-grade myeloid neoplasm - See interpretation 07/26/2022 6:49 PM [facility] PATHOLOGY LAB at [address] [facility] Flow Cytometry Interpretation The bone marrow specimen [...] flow cytometry specimen is reviewed for quality assurance consultant purposes. The bone marrow specimen shows evidence of involvement by a plasma cell dyscrasia. There is no evidence of non-Hodgkin lymphoma or a high-grade myeloid neoplasm. Correlation with clinical findings and the concurrent bone marrow biopsy is required for further classification. 07/26/2022 6:49 PM [facility] PATHOLOGY LAB Flow Cytometry Results Differential Result Comment Flow Cell Count /uL 19,800 Total Viability % 95.0 Lymphocytes % 18 Dim CD45 Region % 10 Monocytes % 11 Granulocytes % 62 07/26/2022 6:49 PM [facility] PATHOLOGY LAB Reason for test Disorder of white blood cells, unspecified 07/26/2022 6:49 PM [facility] PATHOLOGY LAB Client Specimen ID # [id number] 07/26/2022 6:49 PM [facility] PATHOLOGY LAB Number of markers 14 were performed. A-2 Flow CD10 A-3 Flow CD13 A-5 Flow CD20 A-13 Flow CD117 A-14 FLOW CD138 A-1 Flow CD5 A-4 Flow CD19 A-6 Flow CD33 A-7 Flow CD34 A-8 Flow CD45 A-11 Flow CD38 A-12 Flow CD56 A-9 Ina+CD19+ A-10 Lambda+CD19+ 07/26/2022 6:49 PM [facility] PATHOLOGY LAB Disclaimer Test performed at [facility], [address] [place] [address], [address]. *The established laboratory minimum viability is 70%. [...] high complexity clinical testing. 07/26/2022 6:49 PM ALTERATION TAILOR APPRENTICE [facility] PATHOLOGY LAB Embedded Images 6:49 PM ALTERATION TAILOR APPRENTICE [facility] PATHOLOGY LAB Pathology/Cytolo gy BONE MARROW SPECIMEN / Unknown 07/26/2022 10:24 AM ALTERATION TAILOR APPRENTICE 07/26/2022 2:39 PM ALTERATION TAILOR APPRENTICE Terry Ordoñez MD LAB - PATHOLOGY/CYTOLOGY ORDERAB LES Final Result Performing Organization Address City/State/[facility] Co de Phone Number [facility] PATHOLOGY LAB [address] [phone] documented in this encounter Visit Diagnoses Diagnosis Disorder of white blood cells, unspecified documented in this encounter Care Teams Database Support Relationship Specialty Start Date End Date Magen King MD [address] [address] PCP - General 06/14/21 documented as of this encounter
--- OUTSIDE RECORDS SUMMARY | 2025-04-12 08:43 | XMS_ITS | Encounter Summary ---
Author Organization [facility] JOSH Vasquez [facility] Address [address] [place] [address] Care Team Providers Care Emergency Veterinary Assistant Name Role Phone Magen King MD Primary Care Provider +1- [phone] Encounter Details Date Type Department Care Team ([facility] Contact Info) Description 04/12/2025 Orders Only [facility] Oncology and Hematology Cassius [address] [place] [address] [facility] [employer] [address] [place] [phone] Anemia of chronic renal failure, stage [...] Department Care Team (Late Contact Info) Description 04/13/2025 9:00 AM CDT Office Visit [facility] Oncology and Hematology - Cassius Zohra [address] [place] [address] [facility] [employer] [address] [place] [address] documented as of this encounter Visit Diagnoses Diagnosis Anemia of chronic renal failure, stage 3b (CMS/HCC) documented in this encounter Care Teams Emergency Veterinary Assistant Relationship Specialty Start Date End Date Magen King MD PCP - General Family Practice 05/23/21 documented as of this encounter
--- OUTSIDE RECORDS SUMMARY | 2025-04-12 08:43 | XMS_ITS | Encounter Summary ---
Author Organization [facility] Address [address] [place] [address] Care Team Providers Care Clinical Practitioner Name Role Phone Magen King MD Primary Care Provider + Encounter Details Date Type Department Care Team (Late st Contact Info) Description 07/30/2022 Lab Requisition [facility] Pathology Lab [address] [place] [address] Terry Ordoñez MD [facility] [address] [address] Illness, unspecified Social History Tobacco Use Types Packs/Day Years Used Date Smoking Tobacco: Never Assessed Sex and Gender Information Value Date Recorded Sex Assigned at Not on file Legal Sex Male 8:54 AM UTILITY LOCATOR Gender Identity Not on file Sexual Orientation Not on file documented as of this encounter Plan of Treatment Not on file documented as of this encounter Procedures Procedure Name Priority Date/Time Associated Diagnosis Comments BONE MARROW BIOPSY (STL) Routine 07/26/2022 10:24 AM UTILITY LOCATOR Illness, unspecified documented in this encounter Results * BONE MARROW BIOPSY (STL) (07/26/2022 10:24 AM UTILITY LOCATOR) Case Report Bone Marrow Patholog y Report Case: [id number] Authorizing Provider: Terry Ordoñez MD Collected: 07/26/2022 10:24 AM Ordering Location: [facility] Pathology Lab Received: 07/30/2022 07:56 AM Pathologist: Mal Jack MD Specimens: A) - Bone Marrow Clot B) - Bone Marrow Core 07/30/2022 3:45 PM UTILITY LOCATOR [facility] PATHOLOGY LAB Final Diagnosis Bone marrow, aspirate, clot section, and core biopsy: - Hypercellular marrow with megakaryocytic hyperplasia with atypia and mild involvement by plasma cell neoplasm (~5-7% of marrow cellularity). - See description. Peripheral blood smear: - Pancytopenia. - See description. 07/30/2022 3:[address] [facility] PATHOLOGY LAB at [address] UTILITY LOCATOR AP Comment Immunohistochemistry is performed to assess [...] genetic abnormality is identified.. 07/30/2022 3:[address] [facility] PATHOLOGY LAB Peripheral Smear Description RBC: macrocytic anemia. WBC: decreased in number, few atypically lobated neutrophils. Platelets: slightly decreased in number. 07/30/2022 3:[address] [facility] PATH[facility] Bone Marrow Aspirate Differential count [...] stain): no ring sideroblasts. 07/30/2022 3:[address] [facility] PATH[facility] Bone Marrow Core Biopsy and [...] similar to core biopsy. 07/30/2022 3:[address] [facility] PATH[facility] Flow Cytometry Summary Bone marrow, flow cytometric immunophenotypic analysis ([id number]): - Plasma cell dyscrasia - No evidence of non-Hodgkin lymphoma or high-grade myeloid neoplasm - See interpretation 07/30/2022 3:[address] [facility] PATHOLOG[facility] Clinical History Colon cancer and persistent pancytopenia. 07/30/2022 3:[address] [facility] PATH[facility] Materials Received Received are 20 slides and three blocks (A1, A2, B1) labeled [id number] along with a copy of the outside pathology report. [place] [address]. All original materials are returned to the referring institution, along with a copy of our final report. 07/30/2022 3:[address] [facility] PATH[facility] Disclaimer The performance characteristics of all immunohistochemical and indirect immunofluorescence stains (if any) cited in this report were determined by the Histopathology Laboratory of [facility]. Some of these tests were developed [...] the attending (teaching) pathologist. 07/30/2022 3:[address] [facility] PATHOLOG[facility] Embedded Images 07/30/2022 3:[address] [facility] PATH[facility] Pathology/Cytology BONE MARROW SPECIMEN / Unknown 07/26/2022 10:24 AM UTILITY LOCATOR 07/30/2022 7:56 AM UTILITY LOCATOR Miscellaneous samples (specimen) BONE MARROW SPECIMEN / Unknown 07/26/2022 10:24 AM UTILITY LOCATOR 07/30/2022 7:56 AM UTILITY LOCATOR Terry Ordoñez MD LAB - PATHOLOGY/CYTOLOGY ORDERAB LES Final Result Performing Organization Address City/State/[facility] Co de Phone Number [facility] PATHOLOGY LAB [address] [phone] documented in this encounter Visit Diagnoses Diagnosis Illness, unspecified documented in this encounter Care Teams Clinical Practitioner Relationship Specialty Start Date End Date Magen King MD [address] [place] [address] PCP - General 06/14/21 documented as of this encounter
--- OUTSIDE RECORDS SUMMARY | 2025-04-12 08:43 | XMS_ITS | Clinical Summary ---
Author Organization [facility] Moe Delo Address [address] [place] [address] Care Team Providers Care Gauge Maker Apprentice Name Role Phone Magen King MD Primary Care Provider + Source Comments [facility] Moe Delo,non-owned Affiliates and Associated Physician Practices is amultiple site organization consisting of ambulatory clinics and hospital sitesin [place], [place], [place] and [place]. This disclosure is being madepursuant to the Care Everywhere program and may not contain all information available regarding this patient. 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 Gender Identity Not on file Sexual Orientation Not on file Plan of Treatment Health Maintenance Due Date Last Done Comments MEDICARE AWV 12 MONTHS 1945 DTAP/TDAP/TD VACCINES (1 - Tdap) 1964 PNEUMOCOCCAL VACCINE 50+ (1 of 1 - PCV) 1995 ZOSTER VACCINE (1 of 2) 1995 Respiratory Syncytial Virus (RSV) Vaccine Pt: or over 60 yrs (1 - 1-dose 75+ series) 2020 DEPRESSION SCREENING 07/08/2024 COVID-19 VACCINE (1 - 2023-2 5 season) 2025 INFLUENZA VACCINE (#1) 2025 HEPATITIS B VACCINE [...] age to complete this [place] [address] [employer] [facility] MEDICARE Care Teams Gauge Maker Apprentice Relationship Specialty Start Date End Date Magen King MD [address] [place] [id number] PCP - General 06/14/21
--- OUTSIDE RECORDS SUMMARY | 2025-04-12 08:44 | XMS_ITS | Clinical Summary ---
Author Organization [facility] Address [address] [place] [id number] Care Team Providers Care Agricultural Pilot Name Role Phone Magen King MD Primary [...] on file Legal Sex Male 12:46 AM PACKAGER OR PACKER AND WEIGHER Gender Identity Not on file Sexual Orientation [...] 180.3 cm (5' 11) 07/17/2013 9:00 AM PACKAGER OR PACKER AND WEIGHER Body Mass Index 26.14 07/17/2013 9:00 AM PACKAGER OR PACKER AND WEIGHER Plan of Treatment Health Maintenance Due Date Last Done Comments Depression Screening 1945 Fall Risk Assessment 1945 DTaP/Tdap/Td Vaccine (1 - Tdap) 1956 Hepatitis B Screening 1963 Zoster Vaccine (1 of 2) 1995 Well Visit 65+ 2010 Pneumococcal vaccine 65+ (2 of 2 - PPSV23, PCV20, or PCV21) 05/03/2020 03/08/2020 Covid-19 Vaccine (5 - 2024-2 6 season) 2025 08/02/2022, 07/27/2021, 09/02/2020, Additional history exists Influenza Vaccine (#1) 2025 08/01/2022, 2020 [place] [address] [facility] [employer]ENEFIT PLAN Care Teams Agricultural Pilot Relationship Specialty Start Date End Date Magen King MD PCP - General Family Medicine 09/21/22
--- OUTSIDE RECORDS SUMMARY | 2025-04-12 08:44 | XMS_ITS | Clinical Summary ---
Author Organization [facility] Address [address] [place] [id number] Phone Care Team Providers Care Select Banker Name Role Phone Magen Gomez MD Primary Care Provider [phone] Allergies No known active allergies Medications fenofibrate [...] OF [employer] MEDICARE MEDICARE Care Teams Select Banker Relationship Specialty Start Date End Date Magen Gomez MD [address] [address] PCP - General Family Medicine 04/03/21
--- OUTSIDE RECORDS SUMMARY | 2025-04-12 08:44 | XMS_ITS | Clinical Summary ---
Author Organization [facility] Address [facility] [place] [address] Care Team Providers Care Clerk Guide Name Role Phone Unavailable Primary Care Provider Unavailabl e Social History Tobacco Use Types Packs/Day Years Used Date Smoking Tobacco: Never Assessed Sex and Gender Information Value Date Recorded Sex Assigned at Not on file Legal Sex Male 5:22 PM CDT Gender Identity Not on file Sexual Orientation Not on file Plan of Treatment Health Maintenance Due Date Last Done Comments DTaP, Tdap and Td Vaccines ( 1 - Tdap) 1964 Pneumococcal Vaccine: 50+ Ye ars (1 of 1 - PCV) 1995 Zoster Vaccines (1 of 2) 1995 RSV Immunization or 60+ Years (1 - 1-dose 75+ series) 2020 COVID-19 Vaccine ( - 2023-2 5 season) 2025 Meningococcal B Vaccine Aged Out No l onger eligible based on patient's age to complete this topic Meningococcal Vaccine Aged Out No lilli geovanna eligible based on patient's age to complete this topic RSV Immunizations Under 20 Months Aged Out No longer eligible based on patient's age to complete this topic
--- OUTSIDE RECORDS SUMMARY | 2025-04-12 08:44 | XMS_ITS | Clinical Summary ---
Author Organization [facility] Joo aguila Roshanlashaysoumya Address [address] [place] [address] Care Team Providers Care Testing Engineer Name Role Phone Magen King MD Primary Care Provider [phone] Allergies No known active allergies Medications clopidogreL [...] Active Problems Problem Noted Date Diagnosed Date MDS (myelodysplastic syndrome) 03/09/2025 Malignant neoplasm of ascending colon 07/27/2021 Anemia of chronic renal failure, stage 3 (modera te) 06/07/2021 Other dietary vitamin B12 deficiency anemia 07/2020 Iron deficiency anemia 06/07/2021 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 Encounters Date Type Department Care Team Description 04/12/2025 Orders Only [facility] - [place] [address] [id number] Nehemias Yang MD Anemia of chronic renal failure, stage 3b (CMS/HCC) 04/06/2025 Orders Only [facility] - [place] [address] [address] Nehemias Yang MD 04/05/2025 Orders Only [facility] - [place] [address] [address] Nehemias Yang MD Anemia of chronic renal failure, stage 3b (CMS/HCC) 03/29/2025 Orders Only [facility] - [place] [address] [id number] Nehemias Yang MD Anemia of chronic renal failure, stage 3b (CMS/HCC) 03/22/2025 Orders Only [facility] Oncology and Hematology - [place] [address] [phone] Nehemias Yang MD Anemia of chronic renal failure, stage 3b (CMS/HCC) 03/16/2025 Orders Only [facility] - [place] [address] [phone] Nehemias Yang MD 03/15/2025 Orders Only [facility] - [place] [address] Nehemias Yang MD Anemia of chronic renal failure, stage 3b (CMS/HCC) 03/09/2025 10:00 AM CDT Office Visit [facility] On[facility] and Hematology - [place] [address] [phone] Tamela Beckett MD MDS (myelodysplastic syndrome) (CMS/HCC) (Primary Dx); Malignant neoplasm of ascending colon (CMS/HCC); Anemia of chronic renal failure, stage 3b (CMS/HCC); 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 External Device Data STL ABSTRACTION Provider, Abstract 03/09/2025 Orders Only [facility] On[facility] and H[facility]ology - [place] [address] [place] [id number] Nehemias Yang MD 03/08/2025 Orders Only [facility] Oncology and Hematology - [place] [address] [place] [id number] Nehemias Yang MD Anemia of chronic renal failure, stage 3b (CMS/HCC) 03/01/2025 Orders Only [facility] Oncology and Hematology - [place] [address] [place] [id number] Nehemias Yang MD Anemia of chronic renal failure, stage 3b (CMS/HCC) 02/23/2025 External Device Data STL ABSTRACTION Provider, Abstract 02/22/2025 Orders Only [facility] Oncology and Hematology - [place] [address] [place] [id number] Nehemias Yang MD Anemia of chronic renal failure, stage 3b (CMS/HCC) 02/16/2025 9:45 AM CDT Office Visit [facility] Oncology and Hematology - [place] [address] [place] [address] Nehemias Yang MD Malignant neoplasm of ascending colon (CMS/HCC) (Primary Dx); MDS (myelodysplastic syndrome) (CMS/HCC) 02/16/2025 Orders Only [facility] Oncology and Hematology - [place] [address] [place] [address] Nehemias Yang MD 02/15/2025 Orders Only [facility] Oncology and Hematology - [place] [address] [place] [address] Nehemias Yang MD Anemia of chronic renal failure, stage 3b (CMS/HCC) 02/09/2025 External Device Data STL ABSTRACTION Provider, Abstract 02/09/2025 Orders Only [facility] Oncology and Hematology - [place] [address] Nehemias Yang MD 02/08/2025 Orders Only [facility] Oncology and Hematology - [place] [address] Nehemias Yang MD Anemia of chronic renal failure, stage 3b (CMS/HCC) 02/01/2025 Orders Only [facility] Oncology and Hematology - [place] [address] Nehemias Yang MD Anemia of chronic renal failure, stage 3b (CMS/HCC) 01/25/2025 Orders Only [facility] Oncology and Hematology - [place] [address] [place] [phone] Nehemias Yang MD Anemia of chronic renal failure, stage 3b (CMS/HCC) 01/20/2025 External Device Data STL ABSTRACTION Provider, Abstract 01/19/2025 External Device Data STL ABSTRACTION Provider, Abstract 01/18/2025 Orders Only [facility] Oncology and Hematology [place] [address] [place] [phone] Nehemias Yang MD Anemia of chronic renal failure, stage 3b (CMS/HCC) 01/13/2025 8:45 AM CDT Office Visit [facility] Oncology and Hematology [facility] L[address] [place] [phone] Nehemias Yang MD MDS (myelodysplastic syndrome) ([facility]/HCC) (Primary Dx) 01/11/2025 Orders Only [facility] Oncology and Hematology [facility] [address] [phone] Nehemias Yang MD Anemia of chronic renal failure, stage 3b (CMS/HCC) from Last 3 Months Social History Tobacco [...] Sign Reading Time Taken Comments Blood Pressure 129/60 03/09/2025 9:56 AM CDT Pulse 86 03/09/2025 9:56 AM CDT Temperature 36.1 C (96.9 F) 03/09/2025 9:56 AM CDT Respiratory Rate 16 03/09/2025 9:56 AM CDT Oxygen Saturation 98% 03/09/2025 9:56 AM CDT Inhaled Oxygen Concentration - - Weight 78.7 kg (173 lb 9.6 oz) 03/09/2025 9:56 A M CDT Height 180.3 cm (5' 11) 02/16/2025 9:46 AM CDT Body Mass Index 24.21 02/16/2025 9:46 AM CDT Plan of Treatment Upcoming Encounters Date Type Department Care Team (Late st Contact Info) Description 04/13/2025 9:00 AM CDT Office Visit [facility] Oncology and Hematology - [place] [address] [place] [address] [address] Nehemias Yang MD [address] [facility] [address] [place] [address] Health Maintenance Due Date Last Done Comments DTAP/TDAP/TD VACCINES (1 - Tdap) 1964 Traditional Medicare (ACO) A nnual Wellness Visit 1964 ZOSTER VACCINE (1 of 2) 1995 RSV VACCINE (60+ or ) (1 - 1-dose 75+ series) 2020 INFLUENZA VACCINE (#1) 2025 4, 04/16/2023, 08/01/2022, Additional history exists PNEUMOCOCCAL VACCINE 50+ YEARS Completed 0 07/26/2020, 03/08/2020, 08/13/2018 COLORECTAL SCREENING Discontinued 12/06/2022, 12/07/19 23 Colorectal Cancer Screening Discontinued FIT-DNA Q 3 years Discontinued FIT/FOBT Q 1 year Discontinued Flex Sig/CT Colonography Q 5 years Discontinued Procedures Procedure Name Priority Date/Time Associated Diagnosis Comments COMPREHENSIVE METABOLIC PANEL Routine 04/05/2025 10:27 AM CDT CBC WITH AUTODIFFERENTIAL Routine 2024 3:42 PM CDT COMPREHENSIVE METABOLIC PANEL Routine 03/09/2025 3:24 PM CDT BASIC METABOLIC PANEL Routine 03/09/2025 12:30 PM CDT COMPREHENSIVE METABOLIC PANEL Routine 03/09/2025 12:26 PM CDT BASIC METABOLIC PANEL Routine 02/16/2025 1:17 PM CDT CBC WITH AUTODIFFERENTIAL Routine 2024 1:14 PM CDT COMPREHENSIVE METABOLIC PANEL Routine 02/08/2025 11:32 AM CDT BASIC METABOLIC PANEL Routine 02/08/2025 10:15 AM CDT CBC WITH AUTODIFFERENTIAL Routine 2024 9:31 AM CDT from Last 3 Months Results * COMPREHENSIVE METABOLIC PANEL (04/05/2025 10:27 AM CDT) Only the most recent of4 resultswithin the time period is included. Blood us Nehemias Ynag MD CHEMISTRY ORDERABLES Final Resu lt * CBC WITH AUTODIFFERENTIAL (03/16/2025 3:42 PM CDT) Only the most recent of3 resultswithin the time period is included. Blood us Nehemias Yang MD HEMATOLOGY ORDERABLES Final Res ult * BASIC METABOLIC PANEL (03/09/2025 12:30 PM CDT) Only the most recent of3 resultswithin the time period is included. Blood us Nehemias Yang MD CHEMISTRY ORDERABLES Final Resu lt from Last 3 Months Insurance MEDICARE PART A AND B [employer] PPO Care Teams Testing Engineer Relationship Specialty Start Date End Date Magen King MD PCP - General Family Practice 05/23/21
[2025-04-12 09:11] LABS: Albumin Level 4.2 g/dL (3.5-5.1); Anion Gap 8 mmol/L (4-12); Blood Urea Nitrogen 36 mg/dL (9-20); Calcium 9.1 mg/dL (8.4-10.2); Carbon Dioxide 25 mmol/L (22-30); Chloride 104 mmol/L (98-107); Estimated Glomerular Filt Rate 29; Glucose 106 mg/dL (65-110); Potassium 4.2 mmol/L (3.4-5.0); Sodium 137 mmol/L (137-145)
[2025-04-12 09:11] LABS: Total Protein Urine Random 9 mg/dL; Ur Ttl Prot Creatinine Ratio 0.07 mg/mg (0-0.20)
[2025-04-12 09:20] LABS: Parathyroid Intact 57.9 pg/mL (14.5-75.2)
== END 2025-04-12 08:23 | disposition home or self-care (01) ==
LOC: ANHLAB 08:24
PROVIDERS: PCP Family Medicine Adolescent Medicine; Visit Provider Internal Medicine Nephrology
DX: I12.9 Hypertensive chronic kidney disease with stage 1 through stage 4 chronic kidney disease, or unspecified chronic kidney disease (principal); N18.32 Chronic kidney disease, stage 3b
CPT/HCPCS: 36415; 80069; 82570; 83970; 84156

== ENCOUNTER → 2025-06-18 02:40 | Day surgery (SDC) | payer MEDICARE, OTHER, SELFPAY ==
[2025-06-17 11:51] VITALS: BMI 24.0
[2025-06-18] VITALS (15 sets, daily range): BP systolic 108–166; BP diastolic 50–100; PULSE 56–84; RESP 12–20; TEMP 36.4–37.2; O2SAT 97–100
--- NOTE | ~2025-06-18 | BM_ITS ---
EXAMINATION: CCL bone marrow asp w bx diag ORDER COMPLETED DATE: 06/18/2025 10:55 INDICATION: Myelodysplastic syndrome TECHNIQUE: A time-out was performed to verify the patient's name, date of , and procedure to be performed. The procedure including the risks and benefits was discussed with the patient. Risks discussed included bleeding, infection, nerve injury and allergic reaction. The patient understood the risks and agreed to proceed. The skin overlying the right posterior iliac spine was prepped and draped in usual sterile fashion. Anesthetic was administered with 1% lidocaine subcutaneously. Moderate conscious sedation was achieved with 50 mcg fentanyl IV. An 11 gauge needle was inserted into the right ilium with fluoroscopic guidance. Bone marrow was aspirated. An 8 gauge needle was then inserted into the right ilium with fluoroscopic guidance. A core bone marrow biopsy was obtained. The needle was removed and the entry site was cleaned and dressed. There were no immediate complications. A total of 6 fluoroscopic images were recorded. Fluoroscopy exposure time was 0.1 minutes. Total DAP was 48.2 mGycm^2. FINDINGS: Real-time fluoroscopy demonstrates the biopsy needle tip overlying the right posterior iliac spine. IMPRESSION: 1. Successful fluoroscopic guided bone marrow aspiration. 2. Successful fluoroscopic guided bone marrow biopsy. Reviewed, dictated and finalized at location A. [facility]
[2025-06-18 07:54] LABS: Immature Platelet Fraction Pct 4.5 % (0.9-11.2); Mean Corpuscular HGB Conc 32.8 g/dl (32-36); Mean Corpuscular Hemoglobin 38.6 pg (26-34); Mean Corpuscular Volume 117.6 fl (80-100); Platelet Count Result 88 k/mm3 (150-375); Red Blood Count 1.53 M/mm3 (4.6-6.20)
[2025-06-18 07:59] LABS: White Blood Count 1.5 K/mm3 (4.5-10.0)
[2025-06-18 08:00] LABS: Hematocrit 18.0 % (42.0-52.0); Hemoglobin 5.9 g/dL (14.0-18.0)
[2025-06-18 08:22] LABS: INR 1.3; Prothrombin Time 15.6 Seconds (11.1-14.7)
[2025-06-18 08:31] LABS: Band Neutrophils Percent 2 % (0-6); Basophils Absolute Manual 0.04 K/mm3 (0.0-0.1); Basophils Percent Manual 3 % (0-1); Eosinophils Absolute Manual 0.01 K/mm3 (0.02-0.50); Eosinophils Percent Manual 1 % (0-4); Lymphocytes Absolute Manual 0.42 K/mm3 (1.1-4.5); Lymphocytes Percent Manual 28 % (18-44); Monocytes Absolute Manual 0.00 K/mm3 (0.1-0.90); Monocytes Percent Manual 0 % (3-9); Neutrophils Absolute Manual 1.02 K/mm3 (1.3-6.7); Neutrophils Percent Manual 66 % (46-73); Total Cells Counted 100
[2025-06-18 08:34] LABS: Tear Drop Cells Occasional
[2025-06-18 08:38] LABS: Ovalocytes 2+; Schistocytes None Seen
[2025-06-18 08:39] LABS: Hypochromasia Occasional; Macrocytosis 1+ (NORMAL)
--- NOTE | 2025-06-18 09:04 | WPDMODSED ---
Moderate Sedation Note-Pt Data Patient Data Diagnosis: myelodysplastic syndrome Present Complaint: myelodyslplastic syndrome Procedure to be performed/Plan: bone marrow biopsy Allergies Allergy/AdvReac Type Severity Reaction Status Date / Time No Known Allergies Allergy Verified 06/18/25 07:48 Home Medications ?Medication ?Instructions ?Recorded ?Confirmed ?Type aspirin 81 mg tablet,delayed 81 mg PO HS 05/10/21 06/17/25 History release omega 1-jvj-yai-fish oil 1,200 mg 2 cap PO BID 05/10/21 06/17/25 History (144 mg-216 mg) capsule (Fish Oil) multivitamin (One-A-Day Essential 1 tablet PO DAILY 09/13/22 06/17/25 History tablet) albuterol sulfate 90 mcg/actuation 1 inh inhalation Q4H PRN shortness 09/12/23 06/17/25 Rx aerosol inhaler of breath or wheezing #8.5 grams ascorbic acid (vitamin C) 500 mg 500 mg PO BID 05/29/24 06/17/25 History capsule cyanocobalamin (vitamin B-12) 1,000 mcg PO DAILY 05/29/24 06/17/25 History 1,000 mcg tablet ferrous sulfate 325 mg (65 mg 325 mg PO DAILY 05/29/24 06/17/25 History iron) tablet fenofibrate 160 mg tablet 160 mg PO HS #90 tabs 08/14/24 06/17/25 Rx irbesartan 150 mg tablet See Rx Instructions .Route 10/14/24 06/17/25 Rx .COMPLEX #90 tabs clopidogrel 75 mg tablet 75 mg PO DAILY #90 tabs 04/15/25 06/17/25 Rx lidocaine-prilocaine 2.5 %-2.5 % 1 applic topical PRN 06/17/25 06/17/25 History topical cream ondansetron 8 mg disintegrating 8 mg PO Q8-12H PRN nausea and 06/17/25 06/17/25 History tablet vomiting Current Medications: Active Medications Sodium Chloride (Normal Saline Iv) 250 mls @ 30 mls/hr IV CONT .Q8H20M STA Stop: 06/18/25 17:00 Sedation/Anesthesia: No previous sedation/anesthesia problems (including family history). [facility] Past Medical History Medical History COVID-19 CKD (chronic kidney disease) Adenocarcinoma of cecum PVD (peripheral vascular disease) Hypertension Hyperlipidemia TIA (transient ischemic attack) Stroke Arthritis Surgical History Surgical History H/O colectomy right colectomy 06/28/21 History of carotid endarterectomy 2002 Family History Family History Other Cancer Diabetes mellitus Hypertension Social History Social History (Updated 04/26/25 @ 09:22 by Yamilex Peng MA) Smoking packs per day: 1.5 Smoking cigarettes per day: 30.0 Years smoked: 40 Smoking pack-years: 60.00 Smoking status: Former smoker Tobacco type: cigarettes Second hand tobacco smoke exposure: No Smoking end date: 01/05/06 Additional smoking assessment comments: STATES QUITTING AROUND 2002 Alcohol intake: former Alcohol use details: HEAVY DRINKER WHEN YOUNGER, QUIT 2005 Substance use: never Substance use type: does not use Lack of Transportation: No Lack of Food: Never True Current Housing: I Do Not Have Housing Concerned About Future Housing: No Difficulty Paying Gas/Electric Bills: No Difficulty Paying for Meds: No Currently Unemployed: No Education: High School Diploma/GED Difficulty w/ Childcare or Family Care: No Living arrangements: with family Additional living arrangements comments: SISTER-PAT Gender identity (if verbalized by the patient): Female Spiritual care concerns: No Mod Sed Physical Exam Physical Exam Pre Procedural Exam: Normal: Throat, Lungs, Heart Rate and Heart Rhythm and Variation: Appearance (pale) Hours since solid foods: 16 Hours since liquid intake: 16 Mallampati Classification: class II Internal Medicine - PN: Obj Da Vital Signs Vital Signs: Vital Signs - 24 hr 06/18/25 07:37 Temperature 98.4 F Pulse Rate 84 Respiratory Rate 12 Blood Pressure 165/91 H Pulse Oximetry 100 Oxygen Delivery Room Air Meds/Results Medications: Active Medications Generic Name Dose Route Start Last Admin Trade Name Freq PRN Reason Stop Dose Admin Sodium Chloride 250 mls @ 30 mls/hr 06/18/25 08:41 Normal Saline Iv IV CONT 06/18/25 17:00 .Q8H20M STA Labs 06/18/25 07:43 Labs: Laboratory Results - last 24 hr 06/18/25 07:43 WBC 1.5 L* RBC 1.53 L Hgb 5.9 L* Hct 18.0 L* MCV 117.6 H MCH 38.6 H MCHC 32.8 RDW 18.7 H Plt Count 88 L MPV 10.6 H Immature Gran % (Auto) Not Reportable Neut % (Auto) Not Reportable Lymph % (Auto) Not Reportable [place] % (Auto) Not Reportable Eos % (Auto) Not Reportable Baso % (Auto) Not Reportable Lymph # (Auto) Not Reportable [place] # (Auto) Not Reportable Eos # (Auto) Not Reportable Baso # (Auto) Not Reportable Abs Immat Gran (auto) Not Reportable Absolute Neuts (auto) Not Reportable Absolute Nucleated RBC Not Reportable Total Counted 100 Neutrophils % (Manual) 66 Band Neutrophils % 2 Lymphocytes % (Manual) 28 Monocytes % (Manual) 0 L Eosinophils % (Manual) 1 Basophils % (Manual) 3 H Nucleated RBC % Not Reportable Abs Neuts (Manual) 1.02 L Abs Lymphs (Manual) 0.42 L Abs Monocytes (Manual) 0.00 L Absolute Eos (Manual) 0.01 L Abs Basophils (Manual) 0.04 Platelet Estimate Decreased % Immature Plt Fraction 4.5 Hypochromasia Occasional Macrocytosis 1+ Tear Drop Cells Occasional Ovalocytes 2+ Schistocytes None seen PT 15.6 H INR 1.3 ASA Classification/Sedation ASA Classification/Sedation ASA Class: III Emergent: No Risks: Risks, benefits and alternatives explained and patient/family accepted plan for sedation. Patient re-evaluated immediately prior to sedation.
--- NOTE | 2025-06-18 09:20 | BM_PTH ---
PATIENT: Natalio Villaseñor [id number] AGE/SX: 80/M ROOM: RE06/18/[address]: Chuck Zheng MD : 1945 BED: DIS: SPEC #: [id number] RECD: 06/18/25 09:28 STATUS: [facility] #: [id number] MAUDE: 06/18/25 09:[address]: Nehemias Yang DEPT: [facility] Bone Marrow RECD BY: Yasmeen Núñez ENTERED: 06/18/25 09:29 SP TYPE: Bone Marro OT DR: MD Magen Gonzales MD Tissues: A - Bone Marrow Aspiration B - Bone Marrow Biopsy Procedures: Unstained Slides Hematoxylin and Eosin Stain Gross and Microscopic Level 4 Bone Marrow Smear Decalcification Iron Stain
[2025-06-18] MEDS: ACETAMINOPHEN 325 MG TABLET 650 MG PO (09:55)
[2025-06-18] MEDS: diphenhydrAMINE HCl CAP 25 MG CAPSULE PO (09:55)
--- NOTE | 2025-06-18 10:00 | SUR.PHASEII ---
Pt. H&H was low. Per Dr. Zheng pt. to get two units of PRBC after to bone marrow biopsy. written orders faxed over to [facility]. pt. discharged from [facility] bone marrow at 1030. pt. to remain in the department until both PRBC are transfused.
[2025-06-18] MEDS: FUROSEMIDE INJ 40 MG/4 ML VIAL 20 MG IV PUSH (11:58)
== END | disposition home or self-care (01) ==
PROVIDERS: PCP Family Medicine Adolescent Medicine; Visit Provider Radiology Diagnostic Radiology
DX: D46.9 Myelodysplastic syndrome, unspecified (principal); E78.5 Hyperlipidemia, unspecified; I12.9 Hypertensive chronic kidney disease with stage 1 through stage 4 chronic kidney disease, or unspecified chronic kidney disease; N18.9 Chronic kidney disease, unspecified; Z79.82 Long term (current) use of aspirin; Z79.51 Long term (current) use of inhaled steroids; Z79.02 Long term (current) use of antithrombotics/antiplatelets; I73.9 Peripheral vascular disease, unspecified; M19.90 Unspecified osteoarthritis, unspecified site; Z98.890 Other specified postprocedural states; Z90.49 Acquired absence of other specified parts of digestive tract; Z87.891 Personal history of nicotine dependence; Z85.038 Personal history of other malignant neoplasm of large intestine; Z86.73 Personal history of transient ischemic attack (TIA), and cerebral infarction without residual deficits; Z80.9 Family history of malignant neoplasm, unspecified
CPT/HCPCS: 36415; 36430; 38222; 85025; 85055; 85610; 86850; 86900; 86901; 86923; 88305; 88311; 88313; A9270; J1938; J2003; J2250; J3010; J7040; P9016